=== PATIENT | female | born 1950 | race African-American/Black ===

== ENCOUNTER 2017-08-01 14:49 | Inpatient (IN) | payer MEDICARE, MEDICAID ==
[2017-08-01 15:38] LABS: #Lymphocytes 2.2 thou/uL (1.20-3.40); #Monocytes 0.2 thou/uL (0.11-0.59); #Neutrophils 7.3 thou/uL (1.40-6.50); %Basophils 0.2 % (0.0-1.0); %Eosinophils 0.4 % (0.0-10.0); %Lymphocytes 22.4 % (21.0-51.0); %Monocytes 2.3 % (0.0-10.0); %Neutrophils 74.7 % (42.0-75.0); Hemoglobin 11.4 g/dL (12.0-16.0); Mean Corpuscular HGB CONC 31.8 g/dL (32.0-36.0); Mean Corpuscular Volume 94.4 fl (81.0-99.0); Mean Platelet Volume 8.8 fL (7.4-10.4); Platelet Count 238 thou/uL (130-400); Red Blood Cell (RBC) Count 3.81 mill/uL (4.20-5.40); White Blood Cell (WBC) Count 9.7 thou/uL (4.8-10.8)
--- NOTE | 2017-08-01 15:49 | RAD ---
AP VIEW CHEST: Date: 08/01/17 INDICATION: Chest pain. COMPARISON: None. FINDINGS: There is cardiomegaly, pulmonary vascular congestion, and bilateral infrahilar air space opacities. T here are small bilateral pleural effusions. There is suspected healed deformity involving the proxima l right humerus. There is calcific tendinosis involving the left humeral head. IMPRESSION: 1. Findings suggesting moderate CHF. 2. Bibasilar opacities suspicious for edema; however, aspiration pneumonia can have a similar appear ance. Recommend correlation with clinical examination. POS: PATRICIA
[2017-08-01 15:56] LABS: ALT (SGPT) 17 U/L (8-55); AST (SGOT) 20 U/L (5-34); Albumin 4.4 g/dL (3.4-4.8); Alkaline Phosphatase 112 U/L (40-150); Anion Gap 17 mmol/L (10-20); BUN (Urea Nitrogen) 17 mg/dL (9.8-20.1); Bilirubin, Total 0.4 mg/dL (0.2-1.2); CK (CPK) 94 U/L (29-168); Calc. Creatinine Clearance 0 mL/min (70-130); Carbon Dioxide 19 mmol/L (23-31); Chloride 106 mmol/L (98-107); Estimated GFR-MDRD 53; Globulin 3.3 g/dL (2.4-3.5); Glucose 297 mg/dL (80-115); Potassium 4.6 mmol/L (3.5-5.1); Protein, Total 7.7 g/dL (6.0-8.3); Sodium 137 mmol/L (136-145)
[2017-08-01 16:00] LABS: CKMB 1.2 ng/mL (0-6.6); Troponin I 0.028 ng/mL (< 0.028)
[2017-08-01 16:03] LABS: PTT 31.3 SEC (22.9-36.1); Prothrombin Time 13.4 SEC (12.0-14.7)
[2017-08-01 16:04] LABS: D-Dimer Test 0.33 *mcg/mL (0.27-0.43)
[2017-08-01] MEDS ORDERED: Nitroglycerin 2% Ointment 1 INCH/1 GM Packet ONE (16:25)
[2017-08-01] MEDS ORDERED: Morphine 4 MG/ML VIAL ONE ×2 (16:25→19:28)
[2017-08-01] MEDS ORDERED: cefTRIAXone\\ROCEPHIN 1 GM VIAL ONE (17:47)
[2017-08-01] MEDS ORDERED: Mag-Al 1200 mg/1200 mg/30 ML UDCUP ONE (17:48)
[2017-08-01] MEDS ORDERED: Lidocaine Viscous Sol 2% 15 ml UD Cup ONE (17:48)
[2017-08-01] MEDS ORDERED: Azithromycin 250 MG TAB ONE (18:09)
[2017-08-01] MEDS ORDERED: Azithromycin 500 MG VIAL ONE (18:17)
[2017-08-01 19:35] LABS: Troponin I 2.539 ng/mL (< 0.028)
[2017-08-01] MEDS ORDERED: Enoxaparin Sodium 80 MG/0.8 ML SYRINGE ONE (19:43)
[2017-08-01] MEDS ORDERED: Ondansetron HCl/PF 4 MG/2 ML Vial IVP PRN (20:10)
[2017-08-01] MEDS ORDERED: Ondansetron ODT 4 MG TAB SL PRN (20:10)
[2017-08-01] MEDS ORDERED: Aspirin 325 MG TAB PO SCH (21:00)
[2017-08-01] MEDS ORDERED: Nitroglycerin 2% Ointment 1 INCH/1 GM Packet TOP SCH (22:00)
[2017-08-01 22:18] LABS: Lactic Acid 4.7 mmol/L (0.5-2.2)
[2017-08-01 22:30] LABS: Troponin I 3.255 ng/mL (< 0.028)
[2017-08-02] MEDS ORDERED: Clopidogrel Bisulfate 300 MG TAB PO SCH (02:02)
[2017-08-02] MEDS ORDERED: Acetaminophen 325 MG TAB PO PRN (02:02)
[2017-08-02] MEDS ORDERED: Dextrose 5% in Water 1,000 ML IV PRN (02:02)
[2017-08-02] MEDS ORDERED: Dextrose 50% Abboject 50 ML SYRINGE SLOW IVP PRN (02:02)
[2017-08-02] MEDS ORDERED: tiZANidine HCl 4 MG TAB PO PRN (02:02)
[2017-08-02] MEDS ORDERED: HumaLOG 300 UNITS/3 ML VIAL SC PRN ×2 (02:02)
[2017-08-02] MEDS ORDERED: traMADol HCl 50 MG TAB PO PRN ×2 (02:02→12:50)
[2017-08-02] MEDS ORDERED: Guaifenesin DM 100-10/5 ML UDCUP PO PRN (02:02)
[2017-08-02] MEDS ORDERED: Morphine 4 MG/ML VIAL SLOW IVP PRN (02:02)
[2017-08-02] MEDS ORDERED: Enoxaparin Sodium 80 MG/0.8 ML SYRINGE SC SCH ×2 (02:30→21:00)
[2017-08-02 05:32] LABS: #Lymphocytes 1.6 thou/uL (1.20-3.40); #Monocytes 0.5 thou/uL (0.11-0.59); %Basophils 0.1 % (0.0-1.0); %Eosinophils 0.5 % (0.0-10.0); %Lymphocytes 16.1 % (21.0-51.0); %Monocytes 5.2 % (0.0-10.0); %Neutrophils 78.2 % (42.0-75.0); Hemoglobin 10.7 g/dL (12.0-16.0); Mean Corpuscular HGB CONC 31.4 g/dL (32.0-36.0); Mean Corpuscular Hemoglobin 29.3 pg (27.0-31.0); Mean Corpuscular Volume 93.5 fl (81.0-99.0); Mean Platelet Volume 8.9 fL (7.4-10.4); Platelet Count 231 thou/uL (130-400); Red Blood Cell (RBC) Count 3.65 mill/uL (4.20-5.40); White Blood Cell (WBC) Count 10.2 thou/uL (4.8-10.8)
[2017-08-02 05:41] LABS: Anion Gap 18 mmol/L (10-20); BUN (Urea Nitrogen) 16 mg/dL (9.8-20.1); Calc. Creatinine Clearance 74 mL/min (70-130); Calcium 10.2 mg/dL (7.8-10.44); Carbon Dioxide 20 mmol/L (23-31); Cardiac Risk 2.4 (Less than 4.5); Chloride 106 mmol/L (98-107); Cholesterol 145 mg/dl (< 200 Desired); Estimated GFR-MDRD 66; Glucose 206 mg/dL (80-115); HDL Cholesterol 61 mg/dL (>60 Neg Risk); LDL Cholesterol, Calculated 55 mg/dL; Potassium 4.6 mmol/L (3.5-5.1); Sodium 139 mmol/L (136-145); Triglycerides 144 mg/dL (Less than 150)
--- NOTE | 2017-08-02 06:48 | HP ---
REASON FOR ADMISSION: Non-STEMI, CHF exacerbation, pneumonia. HISTORY OF PRESENT ILLNESS: The patient gives history of going to her [employer] this morning for shots for her right hip. She went home and ate and suddenly felt retrosternal chest pain which was 10/10 in intensity. She has had severe shortness of breath on minimal exertion. Her retrosternal chest pain was getting worse with coughing and sneezing. There was no radiation of this pain. She also mentions that she has had lower extremity edema which has been progressively getting worse from last two weeks. She normally gets swelling in her right lower extremity with upright position. She normally ambulates with a rolling walker and goes to her mailbox and back on a good day. There is no prior cardiac workup per patient, including stress test. PAST MEDICAL/SURGICAL HISTORY: Diabetes mellitus type 2, hypertension, gout, dyslipidemia, back surgery, cataract surgery, hysterectomy. The patient thinks that she might have obstructive sleep apnea and is waiting for a referral to go get a sleep study from Dr. Servin's office. ALLERGIES: No known drug allergies. CURRENT MEDICATIONS: Allopurinol 100 mg p.o. daily, metformin 500 mg 3 times daily, potassium chloride 20 p.o. daily, Lyrica 100 mg p.o. twice daily, pioglitazone 30 mg daily, Januvia 50 mg daily, lisinopril 40 mg daily, tizanidine 4 mg daily, simvastatin 20 mg p.o. daily, Norvasc 10 mg daily, omeprazole 40 mg daily. PERSONAL HISTORY: Does not abuse alcohol or drugs, smokes 3 cigarettes a day. She stays alone, has 1 daughter, who is also her power of marketing campaign analyst, Ms. Reji Mims. FAMILY HISTORY: Mother is living and has history of coronary artery disease and diabetes. She does not know much about her father. REVIEW OF SYSTEMS: The following complete review of systems was negative, unless otherwise mentioned in the HPI or below: Constitutional: Weight loss or gain, ability to conduct usual activities. Skin: Rash, itching. Eyes: Double vision, pain. ENT/Mouth: Nose bleeding, neck stiffness, pain, tenderness. Cardiovascular: Palpitations, dyspnea on exertion, orthopnea. Respiratory: Shortness of breath, wheezing, cough, hemoptysis, fever or night sweats. Gastrointestinal: Poor appetite, abdominal pain, heartburn, nausea, vomiting, constipation, or diarrhea. Genitourinary: Urgency, frequency, dysuria, nocturia. Musculoskeletal: Pain, swelling. Neurologic/Psychiatric: Anxiety, depression. Allergy/Immunologic: Skin rash, bleeding tendency. PHYSICAL EXAMINATION: GENERAL: The patient is a 66-year-old female who is in mild to moderate respiratory distress. VITAL SIGNS: Blood pressure 144/86, pulse 120 per minute, respiratory rate 26 per minute, temperature 97.6 degrees Fahrenheit, saturating 91% on room air. NECK: Supple, there is elevated JVD. HEENT: Eyes; extraocular muscles intact. Pupils reacting to light. Oral cavity; mucous membranes are dry. No exudates or congestion. CARDIOVASCULAR: S1, S2 heard. Regular rhythm. RESPIRATORY: Air entry 1+ bilateral. There are rales plus in the intra and infrascapular areas. ABDOMEN: Soft, bowel sounds heard. No tenderness, rigidity or guarding. EXTREMITIES: There is 2+ peripheral edema, no calf tenderness. VASCULAR: Peripheral pulses are 2+ in the upper extremities, lower extremities they are barely palpable at present, especially the dorsalis pedis and posterior tibial at present. PSYCHIATRIC SYSTEM: The patient's mood is euthymic. No hallucinations or delusions. CENTRAL NERVOUS SYSTEM: No gross focal deficits seen. Patient is alert, awake , oriented well. LABORATORY AND X-RAY FINDINGS: White count of 9, H&H 11 and 35, platelet count 238 with 74% neutrophils. PT, INR, PTT within normal limits. Electrolytes stable. Serum bicarbonate 19, BUN 17, creatinine 1.24, glucose 297. Lactic acid is 5.0, calcium is 10. Liver enzymes within normal limits. Troponin I first set was negative. The second is 2.53. Third set is 3.25, CK-MB 1.2, albumin is 4.4, lipase is 35. Chest x-ray done shows pulmonary vascular congestion. EKG done shows sinus tachycardia at 116 beats per minute. There is ST depression seen in V3-V6. Also, there is global ST depression seen on initial EKG. Repeat EKG done shows clearing up of the ST-T wave changes. CLINICAL IMPRESSION AND PLAN: The patient will be admitted to telemetry for new onset congestive heart failure exacerbation, non-ST elevation myocardial infarction, possible pneumonia. We will place her on 40 mg Lasix q.12h. Echo with 2D Doppler for LV function. Continue her on aspirin full dose, Plavix 300 mg 1 dose and 75 mg daily for non-ST elevation [place] and Lovenox 80 mg q.12 hours. We will consult Dr. Stuart who is synchronizer for Cardiology. We will place her on a small dose of Cozaar, Coreg, Lipitor. She will be on nitro paste half inch q.8 hourly as well. We will continue her on Actos and linagliptin for now. Metformin will be held. For her chronic pain we will continue her on Lyrica, tizanidine, Ultram, morphine p.r.n. We will also obtain arterial Doppler of lower extremities to rule out peripheral vascular disease. The patient has very long nails and has multiple wounds all over her body, which she says is due to psoriasis. She also likely has underlying obstructive sleep apnea. The patient's BMI is around 34 at present. We will continue to closely monitor her on telemetry. Her [employer] name is Dr. Navarro whom she sees every 3 months or so. Please note I have seen and examined patient on 08/01/2017. CODE STATUS: Full. Power of marketing campaign analyst is her daughter, her name Ms. Michelle Mims. We will continue to closely monitor her on telemetry. MEGHANN
[2017-08-02] MEDS ORDERED: Temazepam 15 MG CAP PO PRN (07:59)
[2017-08-02] MEDS ORDERED: Loratadine 10 MG TAB PO PRN (07:59)
[2017-08-02] MEDS ORDERED: Eucerin (Mineral Oil/Petrolatum,White) 30 gm Jar TOP PRN (07:59)
[2017-08-02] MEDS ORDERED: Chloraseptic Spray 180 ml Bottle PO PRN (07:59)
[2017-08-02] MEDS ORDERED: Sodium Chloride 0.65% Nasal 44 ML BOT EA NARE PRN (07:59)
[2017-08-02] MEDS ORDERED: Ondansetron HCl/PF 4 MG/2 ML Vial IVP PRN (07:59)
[2017-08-02] MEDS ORDERED: Loperamide HCl 2 MG CAP PO PRN (07:59)
[2017-08-02] MEDS ORDERED: Artificial Tears 18 DROP/0.9 ML EA EYE PRN (07:59)
[2017-08-02] MEDS ORDERED: Milk Of Magnesia 30 ML UDCUP PO PRN (07:59)
[2017-08-02] MEDS ORDERED: Mag-Al 1200 mg/1200 mg/30 ML UDCUP PO PRN (07:59)
[2017-08-02] MEDS ORDERED: Ondansetron ODT 4 MG TAB PO PRN (07:59)
[2017-08-02] MEDS ORDERED: Diabetic Tussin 200 MG/10 ML UDCUP PO PRN (07:59)
[2017-08-02] MEDS ORDERED: hydrALAZINE 20 MG/ML VIAL SLOW IVP PRN (07:59)
[2017-08-02] MEDS: Nitroglycerin 0.4 MG TAB (25 Tab Bottle) SL PRN ×2 (08:44→09:39)
[2017-08-02] MEDS: Potassium Chloride 20 MEQ TAB PO SCH (08:46)
[2017-08-02] MEDS: Pioglitazone HCl 15 MG TAB PO SCH (08:46)
[2017-08-02] MEDS: Alogliptin 25 MG TAB PO SCH (08:46)
[2017-08-02] MEDS: Docusate 100 MG CAP PO SCH ×2 (08:47→20:49)
[2017-08-02] MEDS ORDERED: Furosemide 40 MG TAB PO SCH (09:00)
[2017-08-02] MEDS ORDERED: Losartan 25 MG TAB PO SCH (09:00)
[2017-08-02] MEDS ORDERED: Famotidine 20 MG TAB PO SCH (09:00)
[2017-08-02] MEDS ORDERED: Clopidogrel Bisulfate 75 MG TAB PO SCH (09:00)
[2017-08-02] MEDS ORDERED: Carvedilol 3.125 MG TAB PO SCH (09:00)
--- NOTE | 2017-08-02 10:18 | ULT ---
ULTRASOUND DOPPLER DUPLEX ARTERIAL BILATERAL LOWER EXTREMITIES: DATE: 08/02/17. HISTORY: Peripheral artery disease in a 66-year-old female. TECHNIQUE: Samuel scale, color flow, and spectral analysis, of major arteries of bilateral lower extremities. FINDINGS: Because of body habitus, Doppler signal is weak in some of the arteries, especially in the distal low er extremities. Pulsed Doppler waveforms, followed by peak systolic velocities in cm/s: RIGHT: Common femoral: 115, triphasic. Profunda femoral: 180, triphasic. Superficial femoral, proximal: 185, biphasic. Superficial femoral, mid: 85, triphasic. Superficial femoral, distal: 65, biphasic. Popliteal: 70, biphasic. Posterior tibial: 10, monophasic. Anterior tibial: 30, biphasic. Dorsalis pedis: 25, monophasic. LEFT: Common femoral: 175, triphasic. Superficial femoral, proximal: 160, monophasic. Superficial femoral, mid: 175, monophasic. Superficial femoral, distal: 70, monophasic. Popliteal: 100, monophasic. Posterior tibial: 65, monophasic. Anterior tibial: 25, monophasic. Dorsalis pedis: not detected. IMPRESSION: Bilateral arterial occlusive disease, at least moderate on the right and severe on the left. POS: TPC
[2017-08-02] MEDS ORDERED: Heparin 10,000 UNITS/1 ML VIAL ONE (10:43)
[2017-08-02] MEDS ORDERED: Lidocaine 1% (PF) 30 ML VIAL ONE ×3 (10:44→11:49)
[2017-08-02] MEDS ORDERED: Sodium Chloride 0.9% 1,000 ML IV SCH ×2 (10:45→12:52)
[2017-08-02] MEDS ORDERED: Communication Order-Pharmacy FS SCH ×2 (10:45→14:13)
[2017-08-02] MEDS ORDERED: Midazolam HCl 2 mg/2 ml Vial ONE (11:20)
[2017-08-02] MEDS ORDERED: Iopamidol 370 76% 50 ML VIAL FS ONE (11:25)
[2017-08-02] MEDS ORDERED: Iopamidol 370 76% 100 ML VIAL ONE (11:25)
[2017-08-02] MEDS ORDERED: Fentanyl 100 MCG/2 ML VIAL ONE (11:28)
--- NOTE | 2017-08-02 12:02 | PDOC.PN ---
- Subjective Encounter Start Date: 08/02/17 Encounter Start Time: 07:30 -: old records requested/rev Patient seen and examined for nstemi. No new complaints. No overnight events, feels better - Objective Resuscitation Status: Resuscitation Status FULL:Full Resuscitation MAR Reviewed: Yes Vital Signs & Weight: Vital Signs (12 hours) Temp Pulse Resp BP Pulse Ox 08/02/17 04:04 97.9 F 97 20 134/61 100 08/02/17 02:33 97 Weight Weight 188 lb I&O: 08/01/17 08/02/17 08/03/17 06:59 06:59 06:59 Intake Total 360 Output Total 1100 500 Balance -740 -500 Result Diagrams: 08/02/17 04:37 08/02/17 04:37 Additional Labs: Accuchecks 08/02/17 10:54 POC Glucose 136 H EKG Reviewed by me: Yes (nsr) Phys Exam - Physical Examination Constitutional: NAD HEENT: PERRLA, moist MMs, sclera anicteric Neck: no JVD, supple Respiratory: no wheezing, no rales, no rhonchi Cardiovascular: RRR, no significant murmur, no rub Gastrointestinal: soft, non-tender, no distention, positive bowel sounds Musculoskeletal: no edema, pulses present Neurological: non-focal, normal sensation, moves all 4 limbs Psychiatric: normal affect, A&O x 3 Skin: no rash, normal turgor Dx/Plan (1) NSTEMI (non-ST elevated myocardial infarction) Code(s): I21.4 - NON-ST ELEVATION (NSTEMI) MYOCARDIAL INFARCTION Status: Acute (2) Acute CHF Code(s): I50.9 - HEART FAILURE, UNSPECIFIED Status: Acute Qualifiers: Heart failure type: unspecified Qualified Code(s): I50.9 - Heart failure, unspecified Comment: suspecting systolic (3) Diabetes type 2, controlled Code(s): E11.9 - TYPE 2 DIABETES MELLITUS WITHOUT COMPLICATIONS Status: Chronic (4) Dyslipidemia Code(s): E78.5 - HYPERLIPIDEMIA, UNSPECIFIED Status: Chronic (5) GERD (gastroesophageal reflux disease) Code(s): K21.9 - GASTRO-ESOPHAGEAL REFLUX DISEASE WITHOUT ESOPHAGITIS Status: Chronic (6) Gout Code(s): M10.9 - GOUT, UNSPECIFIED Status: Chronic (7) Hypertension Code(s): I10 - ESSENTIAL (PRIMARY) HYPERTENSION Status: Chronic (8) Lactic acidosis Code(s): E87.2 - ACIDOSIS Status: Acute (9) Obesity (BMI 30.0-34.9) Code(s): E66.9 - OBESITY, UNSPECIFIED Status: Chronic (10) PAD (peripheral artery disease) Code(s): I73.9 - PERIPHERAL VASCULAR DISEASE, UNSPECIFIED Status: Chronic - Plan cont current plan of care, continue antibiotics * continue aspirin, plavix, lovenox, lasix, statin as prescribed below * cardiology saw and plan for cardiac cath later today * echo pending * selected home medication reconciled * medication reviewed as below * symptomatic treatment * monitor labs. * continue empiric levaquin for suspected pneumonia Review of Systems - Review of Systems Eyes: negative: Pain, Vision Change, Conjunctivae Inflammation, Eyelid Inflammation, Redness, Other ENT: negative: Ear Pain, Ear Discharge, Nose Pain, Nose Discharge, Nose Congestion, Mouth Pain, Mouth Swelling, Throat Pain, Throat Swelling, Other Respiratory: negative: Cough, Dry, Shortness of Breath, Hemoptysis, SOB with Excertion, Pleuritic Pain, Sputum, Wheezing Cardiovascular: negative: chest pain, palpitations, orthopnea, paroxysmal nocturnal dyspnea, edema, light headedness, other Gastrointestinal: negative: Nausea, Vomiting, Abdominal Pain, Diarrhea, Constipation, Melena, Hematochezia, Other Genitourinary: negative: Dysuria, Frequency, Incontinence, Hematuria, Retention , Other Musculoskeletal: negative: Neck Pain, Shoulder Pain, Arm Pain, Back Pain, Hand Pain, Leg Pain, Foot Pain, Other Skin: negative: Rash, Lesions, Cade, Bruising, Other - Medications/Allergies Allergies/Adverse Reactions: Allergies Allergy/AdvReac Type Severity Reaction Status Date / Time No Known Allergies Allergy Unverified 08/01/17 20:09 Medications: Current Medications Acetaminophen (Tylenol) 650 mg PO Q4H PRN PRN Reason: Headache/Fever or Pain Al Hydroxide/Mg Hydroxide (Maalox) 15 ml PO Q4H PRN PRN Reason: Heartburn or Indigestion Allopurinol (Zyloprim) 200 mg PO [facility] Alogliptin Benzoate (Alogliptin) 12.5 mg PO DAILY [facility] Last Admin: 08/02/17 08:46 Dose: 12.5 mg Artificial Tears (Tears Naturale) 0 drop EA EYE PRN PRN PRN Reason: Dry Eyes Aspirin (Aspirin Chewable) 81 mg PO DAILY [facility] Last Admin: 08/02/17 08:47 Dose: 81 mg Atorvastatin Calcium (Lipitor) 40 mg PO QPM [facility] Carvedilol (Coreg) 3.125 mg PO BID [facility] Last Admin: 08/02/17 08:47 Dose: 3.125 mg Clopidogrel Bisulfate (Plavix) 75 mg PO DAILY [facility] Last Admin: 08/02/17 08:46 Dose: 75 mg Dextrose/Water (Dextrose 50%) 25 gm SLOW IVP PRN PRN PRN Reason: Hypoglycemia Docusate Sodium (Colace) 100 mg PO BID [facility] Last Admin: 08/02/17 08:47 Dose: Not Given Famotidine (Pepcid) 20 mg PO DAILY [facility] Last Admin: 08/02/17 08:45 Dose: 20 mg Furosemide (Lasix) 40 mg PO 0900,1400 [facility] Last Admin: 08/02/17 08:46 Dose: 40 mg Glucagon (Glucagon) 1 mg IM PRN PRN PRN Reason: Hypoglycemia Guaifenesin (Robitussin Sf) 200 mg PO Q4H PRN PRN Reason: Cough Guaifenesin/Dextromethorphan (Robitussin Dm) 15 ml PO Q4H PRN PRN Reason: Cough Hydralazine HCl (Apresoline) 10 mg SLOW IVP Q4H PRN PRN Reason: Systolic BP > 180 Dextrose/Water (D5w) 1,000 mls @ 0 mls/hr IV .Q0M PRN; As Directed PRN Reason: Hypoglycemia Levofloxacin 500 mg/ Device 100 mls @ 100 mls/hr IVPB Q24HR [facility] Sodium Chloride (Normal Saline 0.9%) 1,000 mls @ 50 mls/hr IV .Q20H [facility] Insulin Human Lispro (Humalog) 0 units SC .MODERATE SLIDING SC PRN PRN Reason: Moderate Correctional Scale Insulin Human Lispro (Humalog) 0 units SC .BEDTIME SLIDING SC PRN PRN Reason: Bedtime Correctional Scale Loperamide HCl (Imodium) 2 mg PO PRN PRN PRN Reason: Diarrhea/Loose Stools Loratadine (Claritin) 10 mg PO DAILYPRN PRN PRN Reason: Sinus Symptoms Losartan Potassium (Cozaar) 12.5 mg PO DAILY [facility] Last Admin: 08/02/17 08:45 Dose: 12.5 mg Magnesium Hydroxide (Milk Of Magnesium) 30 ml PO DAILYPRN PRN PRN Reason: Constipation Mineral Oil/White Petrolatum (Eucerin Cream) 0 gm TOP BIDPRN PRN PRN Reason: Dry Skin Miscellaneous Information (Communication Order-Pharmacy) 0 each FS ONE [facility] Stop: 08/02/17 21:00 Morphine Sulfate (Morphine) 2 mg SLOW IVP Q5MIN PRN PRN Reason: Chest Pain Last Admin: 08/02/17 09:55 Dose: 2 mg Nitroglycerin (Nitrostat) 0.4 mg SL Q5MIN PRN PRN Reason: Chest Pain Last Admin: 08/02/17 09:39 Dose: 0.4 mg Ondansetron HCl (Zofran Odt) 4 mg PO Q6H PRN PRN Reason: Nausea/Vomiting Ondansetron HCl (Zofran) 4 mg IVP Q6H PRN PRN Reason: Nausea/Vomiting Phenol (Chloraseptic [place] 180 Ml Bot) 0 ml PO PRN PRN PRN Reason: Sore Throat Pioglitazone HCl (Actos) 30 mg PO DAILY [facility] Last Admin: 08/02/17 08:46 Dose: 30 mg Potassium Chloride (K-Dur) 20 meq PO QAM-WM [facility] Last Admin: 08/02/17 08:46 Dose: 20 meq Pregabalin (Lyrica) 200 mg PO HS [facility] Sodium Chloride (Sutter Nasal [place] 0.65%) 0 ml EA NARE QIDPRN PRN PRN Reason: Nasal Congestion Sodium Chloride (Flush - Normal Saline) 10 ml IVF Q12HR [facility] Last Admin: 08/02/17 08:47 Dose: 10 ml Sodium Chloride (Flush - Normal Saline) 10 ml IVF PRN PRN PRN Reason: Saline Flush Temazepam (Restoril) 15 mg PO HSPRN PRN PRN Reason: Insomnia Tizanidine HCl (Zanaflex) 4 mg PO HS PRN PRN Reason: Muscle Spasm Tramadol HCl (Ultram) 50 mg PO Q6H PRN PRN Reason: Pain 4-6
--- NOTE | 2017-08-02 12:32 | CON ---
DATE OF CONSULTATION: 08/02/2017 HISTORY: Mariana Olmedo is a 66-year-old black female who complains of chest discomfort over the last 6 weeks. Most of these episodes would awaken her at night. She describes it as a chest pressure associated with shortness of breath and diaphoresis, no nausea or vomiting. The episodes would last approximately 30-40 minutes. She would get up out of bed and sit in a chair. She states that she has had episodes on a daily basis. She also would develop the same type of discomfort if she would go to the grocery store. While walking she would develop the same type of discomfort; however, it would only last 5-10 minutes and it also would be associated with shortness of breath and diaphoresis. Also, over the past 2 weeks she has noted increased leg edema which she has never had in the past. Yesterday she went to have a back injection which she states she has continued to have after a back surgery 2 years ago. When she got home, she continued to have onset of the same discomfort that did not resolve. She called EMS and was brought to the hospital. She was given 3 sprays of sublingual nitroglycerin by paramedics. On arrival in the emergency room, she was given morphine 4 mg IV, 1 inch of nitro paste, GI cocktail. After x-ray showed bilateral infiltrates which probably are related to pulmonary edema, she was given ceftriaxone 2 grams IV, Zithromax 500 mg p.o. and azithromycin 500 mg IV. She received another 4 mg morphine, Lovenox 90 mg. Since she has been on the floor, she has been given Plavix 300 mg followed by 75 mg per day, Cozaar, carvedilol and topical nitrates. She has continued to have mild chest discomfort today. I was notified by the nurse of that. She states that at the present time, her pain is approximately 5/10 level. She has been given sublingual nitroglycerin as well as morphine and continues to have the discomfort. PAST MEDICAL HISTORY: Hypertension, hyperlipidemia, diabetes, gout, possible obstructive sleep apnea for a sleep study in the future. OPERATIONS: Back surgery, bilateral cataract surgery, total abdominal hysterectomy. MEDICATIONS: Allopurinol 100 mg daily, metformin 500 mg t.i.d., KCl 20 mEq daily, Lyrica 100 mg b.i.d.; pioglitazone 30 mg daily, Januvia 50 daily, lisinopril 40 mg daily, tizanidine 4 mg daily, simvastatin 20 at bedtime, Norvasc 10 mg daily, omeprazole 40 daily. ALLERGIES: None. SOCIAL HISTORY: She smokes 2-3 cigarettes per day. She does not drink alcohol. FAMILY HISTORY: Her mother is Najma Bang who has a pacemaker and also underwent bypass surgery 6-7 years ago. REVIEW OF SYSTEMS: Twelve point review of systems otherwise unremarkable. PHYSICAL EXAMINATION: VITAL SIGNS: Blood pressure 134/61, pulse 97. HEENT: PERRL. NECK: Supple. LUNGS: Chest reveals very faint rales at the bases. CARDIAC: S1, S2 normal, without any S3, S4 or murmurs. Carotid upstrokes normal, without bruits. ABDOMEN: Normal bowel sounds, without tenderness, organomegaly. EXTREMITIES: Revealed no clubbing or cyanosis. There is 1+ pretibial edema to the mid tibia. NEUROLOGIC: Grossly intact. SKIN: Warm and dry. LABORATORY DATA: EKG revealed normal sinus rhythm with downsloping ST segments in 1 and L, V4 through V6. Those changes on EKG this morning are dramatically improved even though she continues to have mild chest discomfort. Hemoglobin 10.7, hematocrit 34.1, white count 10,200, platelets 231,000. INR 1.0. Sodium 139, potassium 4.6, chloride 106, carbon dioxide 20, BUN 16, creatinine 1.02. Lactic acid 5.0. Troponin I is up to 3.255. BNP 22.2. Cholesterol 145 , triglycerides 144, HDL 61, LDL 55. IMPRESSION: 1. [id number] elevation myocardial infarction. She had a lateral ST segment depression on EKG which today is improved. She continues to have ongoing discomfort at this time. 2. Probable heart failure with increased peripheral edema. 3. Acute coronary syndrome with new onset angina over the last 6 weeks. 4. Hypertension. 5. Diabetes. 6. Hypercholesterolemia, under good control. 7. Positive family history. 8. Smoker. PLAN: Echocardiogram needs to be performed to assess left ventricular function. However, with her continued ongoing chest discomfort. I feel the best option is to go the lab engineer directly. Risks of catheterization were discussed with the patient including , myocardial infarction, dye reaction , vascular injury, CVA, transfusion, limb loss, renal loss, etc. Risk of stent placement were discussed including , myocardial infarction, emergent CABG, restenosis, stent thrombosis, vessel perforation, etc. She gets back injections very regularly and because of this, a bare metal stent will be placed if needed. She understands and agrees to proceed. MEGHANN
[2017-08-02] MEDS ORDERED: Nitroglycerin 50 MG/250 ML BOT 250 ML ONE (12:39)
[2017-08-02] MEDS ORDERED: Acetaminophen/Codeine 30-300mg Tablet PO PRN ×2 (12:50)
[2017-08-02] MEDS ORDERED: Nitroglycerin 0.4 MG TAB (25 Tab Bottle) SL PRN (12:50)
[2017-08-02] MEDS ORDERED: Sodium Chloride 0.9% 200 ML IV SCH (13:00)
[2017-08-02] MEDS ORDERED: Nitroglycerin 100MG/250ML BOT IV PRN ×2 (14:05→15:45)
[2017-08-02] MEDS ORDERED: Nitroglycerin 50 MG/250 ML BOT IVPB PRN (16:00)
--- NOTE | 2017-08-02 17:22 | CON ---
DATE OF CONSULTATION: 08/02/2017 REQUESTING PHYSICIAN: Dr. Stuart. PRIMARY CARE PHYSICIAN: Mike Servin M.D. CHIEF COMPLAINT: Chest pain or pressure. HISTORY OF PRESENT ILLNESS: The patient is a 66-year-old black woman with hypertension, diabetes. F or 2-3 months, she has been having what she thought was simply heartburn with the pressure type disco mfort in the central portion of her chest. It has been becoming somewhat more frequent of late, but yesterday after eating lunch, she had an episode that was far more severe than is typical. She cedillo d some neighbors who had helped her run some errands earlier in the day and when they came over to [facility] on her, apparently she looked bad enough that they just simply called EMS and when EMS arrived, elena perez decided to take her to the nearest hospital at [place] rather than to [facility] where susy receives her primary care. On arrival, her EKG showed ST depression in leads I, II, possibly aVL a nd the precordial leads V3 through V6. Initially, her troponins were negative, but about 5-6 hours l ater at the next blood draw, they turned positive. A cardiac catheterization today shows a left alba nant system with three-vessel coronary disease including hazy plaque in the distal left main that ext ends into the ostium of the LAD. PAST MEDICAL HISTORY: Significant for hypertension, diabetes, hyperlipidemia, lumbar disk disease wi th radiculopathy, obstructive sleep apnea, and history of albuminuria and gout. HOME MEDICATIONS: Lisinopril 40 mg a day, Norvasc 10 mg a day, pioglitazone (Actos) 30 mg a day, sit agliptin (Januvia) 50 mg a day, metformin 1000 mg in the morning and 500 mg in the evening, allopurin ol 300 mg in the morning and 200 mg in the evening, Lyrica 100 mg in the morning and 200 mg in the ev ening, Prilosec 40 mg a day, potassium 20 mEq a day, tizanidine 4 mg at bedtime p.r.n. According to her [facility] medicine list is also listed as having Kenalog topical ointments, Zocor 20 mg at bedtime, Indocin 50 mg b.i.d. p.r.n. for gout flare ups and a Diprolene 0.05% cream b.i.d. to hands, feet, and back. SOCIAL HISTORY: She admits to smoking about a pack of cigarettes a week. Denies alcohol consumption . FAMILY HISTORY: Significant for her mother who has undergone coronary bypass surgery. REVIEW OF SYSTEMS: Negative for any transient eye, speech, facial or extremity symptoms to suggest T IAs. She admits to some shortness of breath, but denies chronic cough. She has chronic low back gera n. PHYSICAL EXAMINATION: GENERAL: She is a somewhat obese, graying black, lady in no distress. VITAL SIGNS: Sinus rhythm in the 90s, blood pressure 134/61, temperature 97.9, 2 liters nasal cannul a, O2 sat is 97%. HEENT: She has no obvious xanthelasma. NECK: No JVD, no carotid bruits. LUNGS: Clear to auscultation. CARDIOVASCULAR: She has a regular rate and rhythm. ABDOMEN: Obese, soft, and nontender. EXTREMITIES: Palpable radial pulses and dorsalis pedis pulses bilaterally. Her right dorsalis pedis pulse is 1-2+, her left dorsalis pedis pulse is at best 1+. She has no clubbing, cyanosis or edema. NEUROLOGIC: Grossly nonfocal. LABORATORY DATA: White count was 9.7, hemoglobin 11.4, hematocrit 35.9, platelets 238,000. Sodium i s 137, potassium 4.6, chloride 106, CO2 of 19, glucose 297, BUN 17, creatinine 1.24. Overnight, her BUN was 16 and creatinine 1.02. At her [facility] checkup in May, her creatinine was 1.02, a year ago it was 0.83. On admission, her bilirubin 0.4, alkaline phosphatase 112, AST 20, ALT 17, pro tein 7.7, albumin 4.4, calcium is 10.0. Her troponin initially was 0.028, roughly 5-1/2-6 hours late r is 2.539 and about 3 hours after that it was 3.255. Her BNP was 22. Her EKG had ST depressions. Her chest x-ray, perhaps was wet, it was particularly hazy at the right lower lung field and had aort ic knob calcifications. Her cardiac catheterization shows a left dominant system with an LAD that wr aps well around the apex. She has a fairly high grade ostial lesion that is an extension of some haz y plaque in the distal left main with a rather large, but stenotic first septal cloth cutter. She has about a 50% mid LAD lesion with a small to modest size diagonal that comes off a little after that vance s an ostial 70-80% lesion in it. The circumflex proper has serial lesions in it with a very small di stal arborization and bifurcated OM1 being isolated from each other. LVEF is around 60% with aortic pressure 130/51 with a mean of 86 and LV pressure 133 to 35/-4 to -5 with EDP of 5, 2, and 5. IMPRESSION AND RECOMMENDATIONS: Significant coronary disease in a diabetic who has demonstrated the pattern of unstable angina culminating in a non-ST elevation [place] yesterday. She is currently stable. She received 300 mg of Plavix about 3:00 this morning. She is going to be going to the Intensive Ca re Unit for IV nitroglycerin and monitoring. I want to recheck some labs in the morning to make sure that her renal function stays stable and to get a baseline hemoglobin A1c. I am also going to give her some Lasix and then repeat a chest x-ray.
--- NOTE | 2017-08-02 20:27 | EKG ---
Test Reason : Blood Pressure : / mmHG Vent. Rate : 080 BPM Atrial Rate : 080 BPM P-R Int : 160 ms QRS Dur : 088 ms QT Int : 354 ms P-R-T Axes : 038 055 116 degrees QTc Int : 408 ms Normal sinus rhythm Nonspecific ST and T wave abnormality Abnormal ECG When compared with ECG of 01-AUG-2017 15:02, (Unconfirmed) ST no longer depressed in Anterior leads Confirmed by ANNE MARIE ANGLIN (2) on 08/02/2017 8:26:26 PM Referred By: KENYA Confirmed By:ANNE MARIE ANGLIN
--- NOTE | 2017-08-02 20:27 | EKG ---
Test Reason : Blood Pressure : / mmHG Vent. Rate : 092 BPM Atrial Rate : 092 BPM P-R Int : 164 ms QRS Dur : 084 ms QT Int : 380 ms P-R-T Axes : 062 038 110 degrees QTc Int : 469 ms Sinus rhythm with Premature atrial complexes Nonspecific ST and T wave abnormality Abnormal ECG No previous ECGs available Confirmed by ANNE MARIE ANGLIN (2) on 08/02/2017 8:27:12 PM Referred By: DERREK Confirmed By:ANNE MARIE ANGLIN
[2017-08-02] MEDS: Allopurinol 100 MG TAB PO SCH (20:47)
[2017-08-02] MEDS: Pregabalin 50 MG CAP PO SCH (20:48)
[2017-08-02] MEDS: Atorvastatin Calcium 40 MG TAB PO SCH (20:48)
[2017-08-03] MEDS ORDERED: Levofloxacin 250 mg/D5W 500 MG in Premix Bag 1 BAG IVPB SCH (02:30)
[2017-08-03 05:42] LABS: #Lymphocytes 2.7 thou/uL (1.20-3.40); #Monocytes 0.9 thou/uL (0.11-0.59); #Neutrophils 7.8 thou/uL (1.40-6.50); %Basophils 0.4 % (0.0-1.0); %Eosinophils 0.3 % (0.0-10.0); %Lymphocytes 23.1 % (21.0-51.0); %Monocytes 8.2 % (0.0-10.0); Hemoglobin 11.5 g/dL (12.0-16.0); Mean Corpuscular HGB CONC 30.7 g/dL (32.0-36.0); Mean Corpuscular Hemoglobin 28.9 pg (27.0-31.0); Mean Corpuscular Volume 94.1 fl (81.0-99.0); Mean Platelet Volume 8.4 fL (7.4-10.4); Platelet Count 234 thou/uL (130-400); RBC Distribution Width 15.3 % (11.5-14.5); Red Blood Cell (RBC) Count 3.98 mill/uL (4.20-5.40); White Blood Cell (WBC) Count 11.5 thou/uL (4.8-10.8)
[2017-08-03 05:46] LABS: Hemoglobin A1c 6.6 % (4.0-6.0); Lactic Acid 2.3 mmol/L (0.5-2.2)
[2017-08-03 05:48] LABS: Anion Gap 14 mmol/L (10-20); BUN (Urea Nitrogen) 14 mg/dL (9.8-20.1); Calc. Creatinine Clearance 77 mL/min (70-130); Calcium 10.1 mg/dL (7.8-10.44); Carbon Dioxide 25 mmol/L (23-31); Chloride 104 mmol/L (98-107); Estimated GFR-MDRD 69; Glucose 132 mg/dL (80-115); Potassium 4.1 mmol/L (3.5-5.1); Sodium 139 mmol/L (136-145)
[2017-08-03] MEDS: Furosemide 40 MG TAB PO SCH (08:06)
--- NOTE | 2017-08-03 09:04 | PQF ---
CLINICAL DOCUMENTATION IMPROVEMENT CLARIFICATION FORM: ICD-10 Updated PLEASE DO AN ADDENDUM TO THE PROGRESS NOTE WITH ANY DOCUMENTATION UPDATES OR ADDITIONS AND CARRY THROUGH TO DC SUMMARY. THANK YOU. DATE: 08/03 ATTN: DR. MARIA GUADALUPE FARAH Please exercise your independent, professional judgment in responding to the clarification form. Clinical indicators are provided on the bottom of this form for your review Please check appropriate box(s) to clarify if the following diagnosis has been ruled in or ruled out: POSSIBLE PNEUMONIA [ ] Ruled in diagnosis [ ] Continue to treat [ ] Resolved [ x ] Ruled out diagnosis [ ] Other diagnosis [ ] Unable to determine For continuity of documentation, please document condition throughout progress notes and discharge summary. Thank You. CLINICAL INDICATORS - SIGNS / SYMPTOMS / LABS PHYSICIAN H&P DOCUMENTATION 08/01: REASON FOR ADMISSION: NSTEMI, CHF EXACERBATION, PNEUMONIA. CLINICAL IMPRESSION & PLAN: THE PATIENT WILL BE ADMITTED FOR NEW ONSET CHF EXACERBATION, NSTEMI, & POSSIBLE PNEUMONIA CARDIOLOGY CONSULT 08/02: HX: ...AFTER X-RAY SHOWED BILATERAL INFILTRATES WHICH PROBABLY ARE R/T PULMONARY EDEMA... CXR 08/01: IMPRESSION: 2) BIBASILAR OPACITIES SUSPICIOUS FOR EDEMA; HOWEVER, ASPIRATION PNEUMONIA CAN HAVE A SIMILAR APPEARANCE NO FURTHER MENTION OF PNEUMONIA TO DATE RISK FACTORS: CURRENT TOBACCO ABUSE SOB TREATMENT: IV ANTIBIOTIC (LEVAQUIN 08/02 - PRESENT) THANK YOU! Anna (This form is maintained as a part of the permanent medical record) 2014 [employer]. All Rights Reserved Anna Rondon RN, BSN [email or web address] Office: [phone] [facility]
--- NOTE | 2017-08-03 09:23 | RAD ---
SINGLE VIEW OF THE CHEST: Comparison: 08-01-17 History: Open heart surgery pre-operative radiograph. FINDINGS: Single view of the chest shows a cardiomediastinal silhouette which is upper limits normal in size. T here is no evidence of consolidation, mass, or pleural effusion. There is a remote healed fracture of the right humerous. IMPRESSION: No evidence of acute cardiopulmonary disease. POS: [facility]
[2017-08-03] MEDS: Pioglitazone HCl 15 MG TAB PO SCH (09:47)
[2017-08-03] MEDS: Alogliptin 25 MG TAB PO SCH (09:48)
[2017-08-03] MEDS: Famotidine 20 MG TAB PO SCH ×2 (09:48→20:19)
[2017-08-03] MEDS: Potassium Chloride 20 MEQ TAB PO SCH (09:49)
[2017-08-03] MEDS: Docusate 100 MG CAP PO SCH ×2 (09:49→20:19)
--- NOTE | 2017-08-03 11:18 | PDOC.PN ---
- Subjective Encounter Start Date: 08/03/17 Encounter Start Time: 09:30 Patient seen and examined for nstemi. No new complaints. No overnight events - Objective Resuscitation Status: Resuscitation Status FULL:Full Resuscitation MAR Reviewed: Yes Vital Signs & Weight: Vital Signs (12 hours) Temp Pulse Ox 08/03/17 10:32 95 08/03/17 08:00 97.7 F 08/03/17 04:00 98.9 F Weight Weight 188 lb 4.396 oz Most Recent Monitor Data Heart Rate from ECG 82 NIBP 131/50 NIBP BP-Mean 69 Respiration from ECG 18 SpO2 100 I&O: 08/02/17 08/03/17 08/04/17 06:59 06:59 06:59 Intake Total 360 1671.5 0 Output Total 1100 2720 100 Balance -740 -1048.5 -100 Result Diagrams: 08/03/17 05:06 08/03/17 05:06 Additional Labs: Accuchecks 08/02/17 08/02/17 08/02/17 22:35 19:12 05:25 POC Glucose 159 H 114 H 163 H 08/01/17 20:27 POC Glucose 271 H Radiology Reviewed by me: Yes (chest xray) EKG Reviewed by me: Yes (nsr) Phys Exam - Physical Examination Constitutional: NAD HEENT: PERRLA, moist MMs, sclera anicteric Neck: no JVD, supple Respiratory: no wheezing, no rhonchi reduced air entry at base Cardiovascular: RRR, no significant murmur, no rub Gastrointestinal: soft, non-tender, no distention, positive bowel sounds Musculoskeletal: pulses present, edema present Neurological: non-focal, normal sensation, moves all 4 limbs Psychiatric: normal affect, A&O x 3 Skin: no rash, normal turgor Dx/Plan (1) NSTEMI (non-ST elevated myocardial infarction) Code(s): I21.4 - NON-ST ELEVATION (NSTEMI) MYOCARDIAL INFARCTION Status: Acute (2) Acute CHF Code(s): I50.9 - HEART FAILURE, UNSPECIFIED Status: Acute Qualifiers: Heart failure type: unspecified Qualified Code(s): I50.9 - Heart failure, unspecified Comment: suspecting systolic (3) Diabetes type 2, controlled Code(s): E11.9 - TYPE 2 DIABETES MELLITUS WITHOUT COMPLICATIONS Status: Chronic (4) Dyslipidemia Code(s): E78.5 - HYPERLIPIDEMIA, UNSPECIFIED Status: Chronic (5) GERD (gastroesophageal reflux disease) Code(s): K21.9 - GASTRO-ESOPHAGEAL REFLUX DISEASE WITHOUT ESOPHAGITIS Status: Chronic (6) Gout Code(s): M10.9 - GOUT, UNSPECIFIED Status: Chronic (7) Hypertension Code(s): I10 - ESSENTIAL (PRIMARY) HYPERTENSION Status: Chronic (8) Lactic acidosis Code(s): E87.2 - ACIDOSIS Status: Acute (9) Obesity (BMI 30.0-34.9) Code(s): E66.9 - OBESITY, UNSPECIFIED Status: Chronic (10) PAD (peripheral artery disease) Code(s): I73.9 - PERIPHERAL VASCULAR DISEASE, UNSPECIFIED Status: Chronic (11) Multiple vessel coronary artery disease Code(s): I25.10 - ATHSCL HEART DISEASE OF [place] CORONARY ARTERY W/O ANG PCTRS Status: Acute (12) Tobacco abuse Code(s): Z72.0 - TOBACCO USE Status: Chronic - Plan cont current plan of care * pt is planned for CABG tomorrow * currently on nitro drip * continue current treatment as below * symptomatic treatment * will closely monitor in ccu * counselled to avoid smoking. Review of Systems - Review of Systems Eyes: negative: Pain, Vision Change, Conjunctivae Inflammation, Eyelid Inflammation, Redness, Other ENT: negative: Ear Pain, Ear Discharge, Nose Pain, Nose Discharge, Nose Congestion, Mouth Pain, Mouth Swelling, Throat Pain, Throat Swelling, Other Respiratory: negative: Cough, Dry, Shortness of Breath, Hemoptysis, SOB with Excertion, Pleuritic Pain, Sputum, Wheezing Cardiovascular: negative: chest pain, palpitations, orthopnea, paroxysmal nocturnal dyspnea, edema, light headedness, other Gastrointestinal: negative: Nausea, Vomiting, Abdominal Pain, Diarrhea, Constipation, Melena, Hematochezia, Other Genitourinary: negative: Dysuria, Frequency, Incontinence, Hematuria, Retention , Other Musculoskeletal: negative: Neck Pain, Shoulder Pain, Arm Pain, Back Pain, Hand Pain, Leg Pain, Foot Pain, Other Skin: negative: Rash, Lesions, Cade, Bruising, Other - Medications/Allergies Allergies/Adverse Reactions: Allergies Allergy/AdvReac Type Severity Reaction Status Date / Time No Known Allergies Allergy Unverified 08/01/17 20:09 Medications: Current Medications Acetaminophen (Tylenol) 650 mg PO Q4H PRN PRN Reason: Headache/Fever or Pain Acetaminophen/Codeine Phosphate (Tylenol #3) 1 tab PO Q4H PRN PRN Reason: Mild Pain (1-3) Acetaminophen/Codeine Phosphate (Tylenol #3) 2 tab PO Q4H PRN PRN Reason: Moderate Pain (4-6) Al Hydroxide/Mg Hydroxide (Maalox) 15 ml PO Q4H PRN PRN Reason: Heartburn or Indigestion Allopurinol (Zyloprim) 200 mg PO HS [facility] Last Admin: 08/02/17 20:47 Dose: 200 mg Alogliptin Benzoate (Alogliptin) 12.5 mg PO DAILY [facility] Last Admin: 08/03/17 09:48 Dose: 12.5 mg Artificial Tears (Tears Naturale) 0 drop EA EYE PRN PRN PRN Reason: Dry Eyes Aspirin (Aspirin Chewable) 81 mg PO DAILY [facility] Last Admin: 08/03/17 09:49 Dose: 81 mg Atorvastatin Calcium (Lipitor) 40 mg PO QPM [facility] Last Admin: 08/02/17 20:48 Dose: 40 mg Dextrose/Water (Dextrose 50%) 25 gm SLOW IVP PRN PRN PRN Reason: Hypoglycemia Docusate Sodium (Colace) 100 mg PO BID [facility] Last Admin: 08/03/17 09:49 Dose: 100 mg Famotidine (Pepcid) 20 mg PO BID [facility] Last Admin: 08/03/17 09:48 Dose: 20 mg Furosemide (Lasix) 40 mg PO DAILY[facility] Last Admin: 08/03/17 08:06 Dose: 40 mg Glucagon (Glucagon) 1 mg IM PRN PRN PRN Reason: Hypoglycemia Guaifenesin (Robitussin Sf) 200 mg PO Q4H PRN PRN Reason: Cough Guaifenesin/Dextromethorphan (Robitussin Dm) 15 ml PO Q4H PRN PRN Reason: Cough Hydralazine HCl (Apresoline) 10 mg SLOW IVP Q4H PRN PRN Reason: Systolic BP > 180 Dextrose/Water (D5w) 1,000 mls @ 0 mls/hr IV .Q0M PRN; As Directed PRN Reason: Hypoglycemia Sodium Chloride (Normal Saline 0.9%) 200 mls @ 0 mls/hr IV ONE ELO PRN Reason: As Directed Stop: 08/03/17 21:00 Levofloxacin 500 mg/ Device 100 mls @ 100 mls/hr IVPB Q24HR [facility] Last Admin: 08/03/17 02:09 Dose: 100 mls Insulin Human Lispro (Humalog) 0 units SC .MODERATE SLIDING SC PRN PRN Reason: Moderate [place] Scale Insulin Human Lispro (Humalog) 0 units SC .BEDTIME SLIDING SC PRN PRN Reason: Bedtime [place] Scale Loperamide HCl (Imodium) 2 mg PO PRN PRN PRN Reason: Diarrhea/Loose Stools Loratadine (Claritin) 10 mg PO DAILYPRN PRN PRN Reason: Sinus Symptoms Magnesium Hydroxide (Milk Of Magnesium) 30 ml PO DAILYPRN PRN PRN Reason: Constipation Mineral Oil/White Petrolatum (Eucerin Cream) 0 gm TOP BIDPRN PRN PRN Reason: Dry Skin Miscellaneous Information (Communication Order-Pharmacy) 1 each FS ONE [facility] Stop: 08/03/17 15:00 Morphine Sulfate (Morphine) 2 mg SLOW IVP Q5MIN PRN PRN Reason: Chest Pain Last Admin: 08/02/17 09:55 Dose: 2 mg Nitroglycerin (Nitrostat) 0.4 mg SL Q5MIN PRN PRN Reason: Chest Pain Nitroglycerin/Dextrose (Nitroglycerin 50 Mg/250 Ml Bot) 0 ml IVPB INF PRN; Protocol PRN Reason: Angina Ondansetron HCl (Zofran Odt) 4 mg PO Q6H PRN PRN Reason: Nausea/Vomiting Ondansetron HCl (Zofran) 4 mg IVP Q6H PRN PRN Reason: Nausea/Vomiting Phenol (Chloraseptic [place] 180 Ml Bot) 0 ml PO PRN PRN PRN Reason: Sore Throat Pioglitazone HCl (Actos) 30 mg PO DAILY [facility] Last Admin: 08/03/17 09:47 Dose: 30 mg Potassium Chloride (K-Dur) 20 meq PO QAM[facility] Last Admin: 08/03/17 09:49 Dose: 20 meq Pregabalin (Lyrica) 200 mg PO HS [facility] Last Admin: 08/02/17 20:48 Dose: 200 mg Sodium Chloride ([place] Nasal [place] 0.65%) 0 ml EA NARE QIDPRN PRN PRN Reason: Nasal Congestion Sodium Chloride (Flush - Normal Saline) 10 ml IVF Q12HR E[facility] Last Admin: 08/03/17 09:49 Dose: 10 ml Sodium Chloride (Flush - Normal Saline) 10 ml IVF PRN PRN PRN Reason: Saline Flush Temazepam (Restoril) 15 mg PO HSPRN PRN PRN Reason: Insomnia Tizanidine HCl (Zanaflex) 4 mg PO HS PRN PRN Reason: Muscle Spasm Tramadol HCl (Ultram) 50 mg PO Q6H PRN PRN Reason: Moderate Pain (4-6)
[2017-08-03] MEDS: Pregabalin 50 MG CAP PO SCH (20:18)
[2017-08-03] MEDS: Allopurinol 100 MG TAB PO SCH (20:18)
[2017-08-03] MEDS: Atorvastatin Calcium 40 MG TAB PO SCH (20:19)
[2017-08-04] MEDS ORDERED: Heparin 10,000 UNITS/1 ML VIAL 30,000 UNITS in Sodium Chloride 0.9% 1,000 ML FS SCH (06:30)
[2017-08-04] MEDS ORDERED: Phenylephrine HCL 10 MG/ML VIAL ONE (06:38)
[2017-08-04] MEDS ORDERED: Midazolam HCl 5 mg/5 ml Vial ONE (06:38)
[2017-08-04] MEDS ORDERED: Fentanyl 250 MCG/5 ML VIAL ONE (06:38)
[2017-08-04] MEDS ORDERED: Dexmedetomidine 200 MCG/2 ML VIAL ONE (06:48)
[2017-08-04] MEDS ORDERED: Rocuronium Bromide 50 MG/5 ML VIAL ONE ×2 (06:59→11:36)
[2017-08-04] MEDS ORDERED: Mag-Al 1200 mg/1200 mg/30 ML UDCUP PO PRN (07:26)
[2017-08-04] MEDS ORDERED: hydrALAZINE 20 MG/ML VIAL SLOW IVP PRN (07:26)
[2017-08-04] MEDS ORDERED: Promethazine HCl 25 MG/ML VIAL IM PRN (07:26)
[2017-08-04] MEDS ORDERED: Hetastarch 6% 500 ML 500 ML IVPB PRN (07:26)
[2017-08-04] MEDS ORDERED: DOPamine 400 MG/D5W 250 ML 250 ML IVPB PRN (07:26)
[2017-08-04] MEDS ORDERED: Bisacodyl 10 MG SUPP PR PRN (07:26)
[2017-08-04] MEDS ORDERED: Bisacodyl 5 MG TAB PO PRN (07:26)
[2017-08-04] MEDS ORDERED: Nitroglycerin 50 MG/250 ML BOT 250 ML IVPB PRN (07:26)
[2017-08-04] MEDS ORDERED: Post-Op Insulin Drip Protocol IVPB ONE (07:26)
[2017-08-04] MEDS ORDERED: Acetaminophen 325 MG TAB PO PRN (07:26)
[2017-08-04] MEDS ORDERED: Norepinephrine 8 MG/0.9% NS 250 ML IVPB PRN (07:26)
[2017-08-04] MEDS ORDERED: Ondansetron HCl/PF 4 MG/2 ML Vial IVP PRN (07:26)
[2017-08-04] MEDS ORDERED: Guaifenesin DM 100-10/5 ML UDCUP PO PRN (07:26)
[2017-08-04] MEDS ORDERED: CEFAZOLIN 1 GM VIAL ONE ×2 (07:39→15:00)
[2017-08-04] MEDS ORDERED: Dextrose 5% in Water 1,000 ML IV PRN (08:03)
[2017-08-04] MEDS ORDERED: Dextrose 50% Abboject 50 ML SYRINGE SLOW IVP PRN (08:03)
[2017-08-04] MEDS ORDERED: Insulin Regular 300 UNITS/3 ML VIAL ONE (10:57)
[2017-08-04] MEDS ORDERED: Albumin 5% 500 ML ONE (11:00)
[2017-08-04] MEDS: Sodium Chloride 0.9% 1,000 ML IV SCH ×2 (11:59→14:39)
[2017-08-04] MEDS: Pregabalin 25 MG CAP PO SCH (12:00)
[2017-08-04] MEDS: Famotidine/PF 20 mg/2ml Vial SLOW IVP SCH ×2 (12:00→21:26)
[2017-08-04] MEDS: Aspirin 81 mg Enteric Coated Tablet PO SCH (12:00)
--- NOTE | 2017-08-04 12:28 | PDOC.PN ---
- Subjective Encounter Start Date: 08/04/17 Encounter Start Time: 07:00 Patient seen and examined for chf, nstemi. No new complaints. No overnight events - Objective Resuscitation Status: Resuscitation Status FULL:Full Resuscitation MAR Reviewed: Yes Vital Signs & Weight: Vital Signs (12 hours) Temp 08/04/17 07:00 98.2 F 08/04/17 04:00 98.4 F Weight Weight 190 lb 4.143 oz Most Recent Monitor Data Heart Rate from ECG 96 NIBP 113/54 NIBP BP-Mean 97 Respiration from ECG 20 SpO2 99 I&O: 08/03/17 08/04/17 08/05/17 06:59 06:59 06:59 Intake Total 1671.5 1494.6 Output Total 2720 3125 110 Balance -1048.5 -1630.4 -110 Result Diagrams: 08/05/17 04:17 08/05/17 04:17 Additional Labs: Accuchecks 08/04/17 08/04/17 08/04/17 12:10 11:53 11:23 POC Glucose 173 H 124 H 146 H 08/04/17 08/04/17 08/03/17 10:55 08:30 22:15 POC Glucose 151 H 129 H 142 H 08/03/17 08/03/17 17:07 12:27 POC Glucose 147 H 140 H EKG Reviewed by me: Yes (nsr) Phys Exam - Physical Examination Constitutional: NAD HEENT: PERRLA, moist MMs, sclera anicteric Neck: no JVD, supple Respiratory: no wheezing, no rales, no rhonchi Cardiovascular: RRR, no significant murmur, no rub Gastrointestinal: soft, non-tender, no distention, positive bowel sounds Musculoskeletal: no edema, pulses present Neurological: non-focal, normal sensation, moves all 4 limbs Lymphatic: no nodes Psychiatric: normal affect, A&O x 3 Skin: no rash, normal turgor Dx/Plan (1) NSTEMI (non-ST elevated myocardial infarction) Code(s): I21.4 - NON-ST ELEVATION (NSTEMI) MYOCARDIAL INFARCTION Status: Acute (2) Acute CHF Code(s): I50.9 - HEART FAILURE, UNSPECIFIED Status: Acute Qualifiers: Heart failure type: unspecified Qualified Code(s): I50.9 - Heart failure, unspecified Comment: suspecting systolic (3) Diabetes type 2, controlled Code(s): E11.9 - TYPE 2 DIABETES MELLITUS WITHOUT COMPLICATIONS Status: Chronic (4) Dyslipidemia Code(s): E78.5 - HYPERLIPIDEMIA, UNSPECIFIED Status: Chronic (5) GERD (gastroesophageal reflux disease) Code(s): K21.9 - GASTRO-ESOPHAGEAL REFLUX DISEASE WITHOUT ESOPHAGITIS Status: Chronic (6) Gout Code(s): M10.9 - GOUT, UNSPECIFIED Status: Chronic (7) Hypertension Code(s): I10 - ESSENTIAL (PRIMARY) HYPERTENSION Status: Chronic (8) Lactic acidosis Code(s): E87.2 - ACIDOSIS Status: Acute (9) Obesity (BMI 30.0-34.9) Code(s): E66.9 - OBESITY, UNSPECIFIED Status: Chronic (10) PAD (peripheral artery disease) Code(s): I73.9 - PERIPHERAL VASCULAR DISEASE, UNSPECIFIED Status: Chronic (11) Multiple vessel coronary artery disease Code(s): I25.10 - ATHSCL HEART DISEASE OF [place] CORONARY ARTERY W/O ANG PCTRS Status: Acute (12) Tobacco abuse Code(s): Z72.0 - TOBACCO USE Status: Chronic - Plan cont current plan of care * medication reviewed as below * symptomatic treatment * pt is euvolemic * stable medically * pt is planned for CABG later today * post CABG will defer management to CT surgeon and cardiology. Review of Systems - Review of Systems ENT: negative: Ear Pain, Ear Discharge, Nose Pain, Nose Discharge, Nose Congestion, Mouth Pain, Mouth Swelling, Throat Pain, Throat Swelling, Other Respiratory: negative: Cough, Dry, Shortness of Breath, Hemoptysis, SOB with Excertion, Pleuritic Pain, Sputum, Wheezing Cardiovascular: negative: chest pain, palpitations, orthopnea, paroxysmal nocturnal dyspnea, edema, light headedness, other Gastrointestinal: negative: Nausea, Vomiting, Abdominal Pain, Diarrhea, Constipation, Melena, Hematochezia, Other Genitourinary: negative: Dysuria, Frequency, Incontinence, Hematuria, Retention , Other Musculoskeletal: negative: Neck Pain, Shoulder Pain, Arm Pain, Back Pain, Hand Pain, Leg Pain, Foot Pain, Other Skin: negative: Rash, Lesions, Cade, Bruising, Other - Medications/Allergies Allergies/Adverse Reactions: Allergies Allergy/AdvReac Type Severity Reaction Status Date / Time No Known Allergies Allergy Unverified 08/01/17 20:09 Medications: Current Medications Acetaminophen (Tylenol) 650 mg PO Q6H PRN PRN Reason: Headache/Fever Or Mild Pain Hydrocodone Bitart/Acetaminophen ([place] 5/325) 1 tab PO Q4H PRN PRN Reason: Moderate Pain (4-6) Hydrocodone Bitart/Acetaminophen ([place] 5/325) 2 tab PO Q4H PRN PRN Reason: Severe Pain (7-10) Al Hydroxide/Mg Hydroxide (Maalox) 30 ml PO Q4H PRN PRN Reason: Indigestion Albumin Human (Albumin 5%) 12.5 gm IVPB Q6H PRN PRN Reason: To Maintain SBP> 90 mmHG Stop: 08/05/17 07:27 Albumin Human (Albumin 5%) 25 gm IVPB Q6H PRN PRN Reason: To Maintain SBP > 90 mmHG Stop: 08/05/17 07:27 Albuterol/Ipratropium (Duoneb) 3 ml NEB F3IS-LN PRN PRN Reason: SHORTNESS OF BREATH Aspirin (Aspirin Chewable) 81 mg PO DAILY [facility] Last Admin: 08/04/17 11:59 Dose: Not Given Aspirin (Ecotrin) 81 mg PO DAILY [facility] Last Admin: 08/04/17 12:00 Dose: Not Given Atorvastatin Calcium (Lipitor) 40 mg PO HS [facility] Bisacodyl (Dulcolax) 10 mg PO Q12H PRN PRN Reason: Constipation Bisacodyl (Dulcolax) 10 mg [place] Q12H PRN PRN Reason: Constipation Dextrose/Water (Dextrose 50%) 25 gm SLOW IVP PRN PRN PRN Reason: PER HYPOGLYCEMIC PROTOCOL Famotidine (Pepcid) 20 mg SLOW IVP Q12HR [facility] Last Admin: 08/04/17 12:00 Dose: Not Given Fentanyl (Sublimaze) 25 mcg SLOW IVP Q2H PRN PRN Reason: Moderate Pain (4-6) Stop: 08/06/17 07:26 Fentanyl (Sublimaze) 50 mcg SLOW IVP Q2H PRN PRN Reason: Severe Pain (7-10) Stop: 08/06/17 07:26 Glucagon (Glucagon) 1 mg SC PRN PRN PRN Reason: PER HYPOGLYCEMIC PROTOCOL Guaifenesin/Dextromethorphan (Robitussin Dm) 15 ml PO Q4H PRN PRN Reason: Cough Hydralazine HCl (Apresoline) 10 mg SLOW IVP Q6H PRN PRN Reason: To Maintain SBP< 140mmHG Heparin Sodium (Porcine) 30, (000 units/ Sodium Chloride) 1,003 mls @ 0 mls/hr FS [place] ELO PRN Reason: As Directed Stop: 08/04/17 18:00 Hetastarch/Sodium Chloride (Hespan) 500 mls @ 0 mls/hr IVPB PRN PRN; As Directed PRN Reason: To Maintain SBP > 90mmHg Stop: 08/05/17 07:26 Norepinephrine Bitartrate (Levophed) 250 mls @ 0 mls/hr IVPB PRN PRN; Protocol ; Titrate PRN Reason: To maintain SBP > 90 mmHG Nitroglycerin/Dextrose (Nitroglycerin 50 Mg/250 Ml Bot) 250 mls @ 0 mls/hr IVPB PRN PRN; Protocol; Titrate PRN Reason: To Maintain SBP< 140mmHG Sodium Chloride (Normal Saline 0.9%) 1,000 mls @ 75 mls/hr IV .[id number] [facility] Last Admin: 08/04/17 11:59 Dose: Not Given Insulin Human Regular 100 (units/ Sodium Chloride) 101 mls @ 0 mls/hr IVPB INF [facility]; As Directed PRN Reason: Protocol Dextrose/Water (D5w) 1,000 mls @ 0 mls/hr IV INF PRN; As Directed PRN Reason: PRN HYPOGLYCEMIC PROTOCOL Insulin Glargine (Lantus) 0 units SC ONE PRN PRN Reason: PER OPEN HEART ORDERS Stop: 08/05/17 17:00 Insulin Human Regular (Humulin R) 0 units SC Q4H PRN; Protocol PRN Reason: POST OP SLIDING SCALE Morphine Sulfate (Morphine) 2 mg SLOW IVP Q15MIN PRN PRN Reason: Severe Pain (7-10) Ondansetron HCl (Zofran) 4 mg IVP Q6H PRN PRN Reason: Nausea/Vomiting Potassium Chloride (Kcl) 20 meq IVPB PRN PRN PRN Reason: K level </= 4.0 Pregabalin (Lyrica) 100 mg PO QAM [facility] Last Admin: 08/04/17 12:00 Dose: Not Given Promethazine HCl (Phenergan) 6.25 mg IM Q4H PRN PRN Reason: Nausea/Vomiting
[2017-08-04] MEDS: Furosemide 40 MG TAB PO SCH (13:16)
[2017-08-04 14:16] LABS: Actual Bicarbonate (HCO3a) 20.1 mEq/L (22-26); Base Excess (BEa) -5.9 mEq/L (0 (+/-) 2.5); CO2 Tension 41.6 mmHg (35.0-45.0); Hematocrit-ABG 34.9 % (36.0-47.0); Hemoglobin (Hb) 10.3 g/dL (12.0-16.0); O2 Tension (PaO2) 104.3 mmHg (80.0-100.0)
[2017-08-04 14:17] LABS: Calcium, Ionized 1.2 mmol/L (1.12-1.30); Puncture Site ALINE
[2017-08-04 14:22] LABS: Hemoglobin 10.8 g/dL (12.0-16.0); Hemoglobin 10.9 g/dL (12.0-16.0); Mean Corpuscular HGB CONC 32.3 g/dL (32.0-36.0); Mean Corpuscular Hemoglobin 29.8 pg (27.0-31.0); Mean Corpuscular Volume 92.2 fl (81.0-99.0); Mean Platelet Volume 8.5 fL (7.4-10.4); Platelet Count 138 thou/uL (130-400); RBC Distribution Width 14.4 % (11.5-14.5); Red Blood Cell (RBC) Count 3.63 mill/uL (4.20-5.40); White Blood Cell (WBC) Count 21.9 thou/uL (4.8-10.8)
[2017-08-04 14:27] LABS: INR-International Normal Ratio 1.3; PTT 31.9 SEC (22.9-36.1); Prothrombin Time 16.3 SEC (12.0-14.7)
--- NOTE | 2017-08-04 14:30 | RAD ---
SINGLE VIEW OF THE CHEST: COMPARISON: 08/03/17. HISTORY: Status post open heart surgery. FINDINGS: A single view of the chest shows an enlarged cardiomediastinal silhouette. The patient is status pos t sternotomy. There is an endotracheal tube with its tip approximately 1.5 cm from the cody. The central venous catheter is seen with its tip in the superior vena cava. Left-sided chest tubes are p resent. No pneumothorax is seen. IMPRESSION: Slightly low-lying endotracheal tube should be withdrawn approximately 1 cm. POS: [facility]
[2017-08-04] MEDS ORDERED: Norepinephrine 8 MG, Admixture Fee 1 EACH in Sodium Chloride 0.9% 250 ML 250 ML IVPB PRN (14:36)
[2017-08-04] MEDS ORDERED: Norepinephrine 8 MG/250 ML BAG IVPB PRN (14:39)
[2017-08-04 14:46] LABS: Anion Gap 10 mmol/L (10-20); BUN (Urea Nitrogen) 13 mg/dL (9.8-20.1); Calc. Creatinine Clearance 93 mL/min (70-130); Carbon Dioxide 20 mmol/L (23-31); Chloride 112 mmol/L (98-107); Estimated GFR-MDRD 85; Glucose 142 mg/dL (80-115); Sodium 138 mmol/L (136-145)
[2017-08-04 14:47] LABS: Band 16 % (5-11); Lymphocytes 9 % (21-51); MDiff Complete? YES; Metamyelocyte 2 % (0-0); Monocytes 9 % (0-10); Neutrophil 64 % (42-75); Ovalocytes SLIGHT = 2-5 cells (100X) (0-1/hpf); PLT Morphology Comment Appears Adequate; Polychromasia SLIGHT = 2-3 cells (100X) (0-2/hpf); Target Cells SLIGHT = 2-5 cells (100X) (0-1/hpf)
[2017-08-04] MEDS ORDERED: PHENYLEPHRINE-NS 100 MCG/ML 10 ML SYRINGE ONE (15:00)
[2017-08-04] MEDS ORDERED: Protamine Sulfate 250 MG/25 ML VIAL ONE (15:00)
[2017-08-04] MEDS ORDERED: Heparin 5,000 UNITS/ML VIAL ONE (15:00)
[2017-08-04] MEDS ORDERED: PROPOFOL 200 MG/20 ML VIAL ONE (15:00)
[2017-08-04] MEDS ORDERED: ePHEDrine/0.9% NaCl/PF SYRINGE 50 mg/10 ml ONE (15:00)
[2017-08-04] MEDS ORDERED: Heparin 30,000 units/30 ml VIAL ONE (15:00)
[2017-08-04] MEDS ORDERED: Cardioplegic Soln 1,000 ML BAG ONE (15:00)
[2017-08-04] MEDS ORDERED: Calcium Chloride 1 GM/10 ML Abboject SYRINGE ONE (15:00)
[2017-08-04] MEDS ORDERED: Sterile Water 10 ML VIAL ONE (15:00)
[2017-08-04] MEDS ORDERED: Sodium Bicarb 50 MEQ/50 ML Abboject 8.4% SYRINGE ONE (15:00)
[2017-08-04] MEDS ORDERED: Mannitol 12.5 GM/50 ML ONE (15:00)
[2017-08-04] MEDS ORDERED: Magnesium 5 GM/10 ML VIAL ONE (15:00)
[2017-08-04] MEDS ORDERED: Potassium Chlo 10 mEq/5 ml Syr ONE (15:00)
[2017-08-04] MEDS ORDERED: Norepinephrine 4 MG/4 ML VIAL ONE (15:00)
[2017-08-04] MEDS ORDERED: Papaverine 60 MG/2 ML VIAL ONE (15:00)
[2017-08-04] MEDS ORDERED: Lidocaine 2% PF 100 mg/5 ml Syringe ONE (15:00)
[2017-08-04] MEDS ORDERED: Morphine 4 MG/ML VIAL SLOW IVP PRN (17:00)
[2017-08-04] MEDS: Potassium Chloride 20 MEQ/100 ML PREMIX BAG IVPB PRN (17:05)
--- NOTE | 2017-08-04 18:52 | OP ---
DATE OF PROCEDURE: 08/04/2017 PROCEDURES PERFORMED: Right subclavian central line placement, coronary artery bypass grafting x3 wi th left internal mammary artery to the distal LAD and reverse greater saphenous vein graft from the a katiana to the first obtuse marginal and to the diagonal. PREOPERATIVE DIAGNOSIS: Coronary artery disease, status post non-ST elevation myocardial infarction. POSTOPERATIVE DIAGNOSIS: Coronary artery disease, status post non-ST elevation myocardial infarction . SURGEON: Robert Perez MD GALLERY OR MUSEUM ATTENDANT: Howie. ANESTHESIA: General endotracheal anesthesia. INDICATIONS: The patient is a 66-year-old diabetic woman who has been having daily pain that she sarah cribed as heartburn an episode that was severe enough to prompt presentation to the hospital, was ass ociated with positive troponins consistent with a non-ST elevation [place]. Cardiac catheterization demon strated a left dominant system with a hazy left main lesion extending into the ostium of the LAD in a ddition to a disease in branch vessels in the circumflex system. She had preserved left ventricular function. She is now taken to the operating room for coronary revascularization. FINDINGS: The pump time 70 minutes. Cross-clamp time 35 minutes. Good quality JUAN MANUEL. Slightly small thin walled saphenous vein that became very small and thin walled in the distal thighs, prompting op en harvest from both thighs. The LAD was a diffusely diseased vessel that was about 1.5-2 mm where i n diameter where it was grafted distally. The diagonal had diffused proximal disease. It was about a 1.5 mm, fairly good quality vessel were grafted. The OM1 was a rock hard vessel proximally, but wa s reasonably good quality 1.5-2 mm vessel were grafted. The distal circumflex system was explored. The PDA could not be identified. Other than perhaps some miniscule branches emerging from the AV danielle ove posterolateral branch was only about 1 mm vessel in the AV groove deep in the epicardial fat. It was thin walled and I elected not to attempt grafting of it. NARRATIVE REPORT: After informed consent was obtained, the patient was taken to the operating room a nd placed in supine position on the operating table. After the induction of general anesthesia, the patient was placed in Trendelenburg and the right chest was prepped and draped in sterile fashion. A triple-lumen central line kit was used to place right subclavian central line. By the Seldinger niecy hnique, all three ports easily aspirated and flushed. The saphenous veins were then examined ultraso nographic. They appeared to be somewhat better in the left thigh than the right, but in both sides a split into very small branches in the distal thigh and no branch at all could be identified at the l evel of the knee. The patient's torso groins in the lower extremities were then prepped and draped i n sterile fashion. The saphenous vein was exposed in the upper left thigh and then harvested through a skin bridge technique from the groin near the saphenofemoral junction down to the distal thigh wer e bifurcated into 2 very small branches. The right greater saphenous vein was harvested in a similar fashion both harvest beds were rather deep. The right one particularly so and it was elected to juana se those incisions over bulb suction drains. A 19 Turk[place] bulb suction drains were placed and secured to the suture in a groin incisions and the harvest sites were closed in layers, the subcutaneous and subcuticular Vicryl. Median sternotomy was performed. The left pleural space was entered and the l eft JUAN MANUEL was mobilized as a pedicle from the level of the xiphoid to the level of the subclavian vein. Side branches were controlled with small Hemoclips. The patient was heparinized and the mammary wa s ligated and divided distally. There was good flow through the mammary. Distally, it was somewhat small and spastic the spasm relieved fairly well with papaverine solution several centimeters of the distal mammary were skeletonized to expose it up at a level where it was a larger vessel. The mammar y bed was inspected for hemostasis. The JUAN MANUEL retractor was replaced with a sternal retractor. The pe ricardium was opened and marsupialized and the aorta was palpated and was soft. A double concentric pursestring of 2-0 Ethibond was placed in the ascending aorta just beyond the pericardial reflection and a single pursestring was placed in the right atrial appendage. Aortic and venous cannulae were i nserted and secured by their pursestrings. The plane between the aorta and the pulmonary artery was developed. Cardiopulmonary bypass was instituted and the patient was systemically cooled. The heart was examined. The vessels to be bypassed were identified. A longitudinal slit was made in the kaylie cardium anterior to the left phrenic nerve through which the mammary pedicle could be passed and aort ic cross clamp was applied and cardioplegia was administered through an aortic root needle. When arr ested been achieved, attention was turned to the distal circumflex system with the heart rested, stil l no PDA could be identified. The posterolateral branch was explored and found to still be a very sm all vessel as it was diving well into the epicardial fat at the AV groove and it was opted not to att empt grafting of this very small, very thin-walled vessel that was difficult to adequately expose. A ttention was then turned to the more proximal circumflex system. The more anterior branch of the fir st obtuse marginal appeared to be larger and better quality. It was opened with a [place] blade and D lucilatrich scissors. Reverse saphenous vein was anastomosed to it with running Prolene suture and the a nastomosis tested by flushing cold cardioplegic down the graft. The diagonal was then opened and gra fted in a similar fashion. The LAD was opened distally where there was a soft spot and the mammary w as anastomosed with running 7-0 Prolene. The mammary pedicle was tacked to the epicardium. The aort ic crossclamp was replaced with a partial occluding clamp. Aortotomy was made in the ascending aorta with a scalpel and punch incorporating the root needle site for one of the aortotomies. The diagona l graft was anastomosed to the more proximal aortotomy, the OM graft to the more distal aortotomy. T he vein grafts were occluded and the partial occluding clamp removed. The vein grafts were deaired. The anastomoses were inspected for hemostasis. Posterior pericardial and left pleural drains were b rought out through separate incision and secured suture. Right atrial and right ventricular temporar y epicardial pacing wires were placed. The patient was then easily from cardiopulmonary by pass. The aortic and venous cannulae were removed and their pursestring secured. Protamine was admi nistered. When hemostasis was adequate, an anterior mediastinal drain was placed. It was not feasib le to close the pericardium completely. The mediastinal fat was tacked back together to cover up the aorta and proximal portions of the vein grafts. The inferior medial aspect of the pericardium near the diaphragmatic surface were tacked back together. The sternum was reapproximated with a combinati on of simple and yfhelx-mt-qhony #7 stainless steel wires. The fascia was closed over the wires heav y Vicryl and subcutaneous tissue was irrigated and reapproximated and the skin was closed with the Vi cryl subcuticular stitch. The wounds were dressed and the patient was taken to the Intensive Care Un it in stable condition.
[2017-08-04] MEDS: Atorvastatin Calcium 40 MG TAB PO SCH (21:26)
[2017-08-05] MEDS: Fentanyl 100 MCG/2 ML VIAL SLOW IVP PRN ×4 (00:29→16:26)
[2017-08-05] MEDS: Acetaminophen 1,000 MG in Premix Bag 1 BAG IVPB PRN ×3 (02:20→19:42)
[2017-08-05 05:02] LABS: Anion Gap 10 mmol/L (10-20); BUN (Urea Nitrogen) 13 mg/dL (9.8-20.1); Calc. Creatinine Clearance 95 mL/min (70-130); Calcium 7.9 mg/dL (7.8-10.44); Carbon Dioxide 20 mmol/L (23-31); Chloride 112 mmol/L (98-107); Estimated GFR-MDRD 83; Glucose 165 mg/dL (80-115); Potassium 4.1 mmol/L (3.5-5.1); Sodium 138 mmol/L (136-145)
[2017-08-05 05:24] LABS: Band 10 % (5-11); Hemoglobin 9.9 g/dL (12.0-16.0); Hypochromia SLIGHT = 6-15 cells (100X) (0-5/hpf); Lymphocytes 9 % (21-51); MDiff Complete? YES; Mean Corpuscular HGB CONC 32.3 g/dL (32.0-36.0); Mean Corpuscular Hemoglobin 29.8 pg (27.0-31.0); Mean Corpuscular Volume 92.2 fl (81.0-99.0); Mean Platelet Volume 8.9 fL (7.4-10.4); Monocytes 11 % (0-10); Neutrophil 70 % (42-75); PLT Morphology Comment Appears Adequate; Platelet Count 133 thou/uL (130-400); RBC Distribution Width 14.6 % (11.5-14.5); Red Blood Cell (RBC) Count 3.32 mill/uL (4.20-5.40); White Blood Cell (WBC) Count 12.9 thou/uL (4.8-10.8)
[2017-08-05] MEDS: Sodium Chloride 0.9% 1,000 ML IV SCH ×4 (06:47→23:53)
[2017-08-05 08:03] LABS: Actual Bicarbonate (HCO3a) 18.7 mEq/L (22-26); Base Excess (BEa) -4.5 mEq/L (0 (+/-) 2.5); CO2 Tension 27.9 mmHg (35.0-45.0); pH, Arterial 7.44 (7.35-7.45)
[2017-08-05 08:04] LABS: ALV-art Gradient 184.325 (0-20); Calcium, Ionized 1.2 mmol/L (1.12-1.30); Hematocrit-ABG 30.3 % (36.0-47.0); Hemoglobin (Hb) 9.5 g/dL (12.0-16.0); Puncture Site ALINE
[2017-08-05] MEDS ORDERED: Ketorolac Tromethamine 30 MG/ML VIAL ONE (10:00)
[2017-08-05] MEDS: Aspirin 81 mg Enteric Coated Tablet PO SCH (10:34)
[2017-08-05] MEDS: Famotidine/PF 20 mg/2ml Vial SLOW IVP SCH ×2 (11:01→20:36)
--- NOTE | 2017-08-05 11:09 | RAD ---
PORTABLE CHEST: Date: 08/05/17 HISTORY: Postop open heart surgery. COMPARISON: Prior day's study. FINDINGS: Endotracheal tube, left chest tube, and right subclavian line are all unchanged in position. Heart si ze is enlarged. Parenchymal lung changes are stable. IMPRESSION: Stable exam. POS: PATRICIA
[2017-08-05] MEDS: Ketorolac Tromethamine 30 MG/ML VIAL IVP SCH ×3 (12:22→23:52)
[2017-08-05] MEDS: Pregabalin 25 MG CAP PO SCH (12:24)
--- NOTE | 2017-08-05 12:28 | CON ---
DATE OF CONSULTATION: 08/05/2017 The following encompassed 45 minutes of critical care time. HISTORY OF PRESENT ILLNESS: This is a 66-year-old black female, who underwent coronary artery bypass grafting surgery yesterday for extensive coronary artery disease. She has remained on the ventilato r overnight and has been difficult to wean secondary to tachypnea and hypoxemia. PAST MEDICAL HISTORY: 1. SISI. 2. Suspected chronic obstructive pulmonary disease. 3. Hypertension. 4. Diabetes mellitus. 5. Hyperlipidemia. 6. Lumbar disk disease with radiculopathy. 7. Proteinuria. 8. Gout. PAST SURGICAL HISTORY: 1. Coronary artery bypass grafting surgery yesterday. 2. Back surgery. 3. Cataract surgery. 4. Hysterectomy. MEDICATIONS PRIOR TO ADMISSION: 1. Allopurinol 100 mg daily. 2. Metformin 500 mg 3 times daily. 3. Potassium chloride 20 mEq daily. 4. [id number] mg twice daily. 5. Pioglitazone 30 mg daily. 6. Januvia 50 mg daily. 7. Lisinopril 40 mg daily. 8. Tizanidine 4 mg daily. 9. Simvastatin 20 mg daily. 10. Norvasc 10 mg daily. 11. Omeprazole 40 mg daily. SOCIAL HISTORY: She smokes about 3 cigarettes per day. It is suspected that she smoked more in the past. She does not consume alcohol or use illicit drugs. FAMILY MEDICAL HISTORY: Remarkable for coronary artery disease and diabetes mellitus. REVIEW OF SYSTEMS: Cannot be obtained secondary to patient being on mechanical ventilation. PHYSICAL EXAMINATION: VITAL SIGNS: Temperature 100.2, T-max of 101.3, pulse 92, blood pressure 124/54 via art-line. Intak e for the last 12 hours 1950, output 1730. GENERAL: She is on mechanical ventilation. She will follow some commands. HEENT: Unremarkable. NECK: No adenopathy or JVD. LUNGS: Distant breath sounds with wheezing or rhonchi. CARDIAC: S1 and S2 regular without murmur. ABDOMEN: Soft, nontender, and nondistended. EXTREMITIES: No clubbing, cyanosis, or edema. LABORATORY DATA: ABG: pH of 7.44, pCO2 of 27, PO2 of 64 that was on CPAP 5, pressure support 10, bu t her respiratory rate was around 44. Sodium 138, potassium 4.1, chloride 112, CO2 of 20, BUN 13, cr eatinine 0.8, glucose 165. White blood cell count 12.9, hematocrit 38.6, platelet count 133. IMAGING: Chest x-ray demonstrates cardiomegaly, some pulmonary edema, the endotracheal tube is in go od position. She has a right subclavian central line, which is in good position. ASSESSMENT: 1. Status post coronary artery bypass grafting surgery. 2. Postoperative respiratory failure -- expected post-surgery and not a complication of surgery. 3. Underlying chronic obstructive pulmonary disease. 4. Underlying obstructive sleep apnea. PLAN: I suspect that she is a little too weak right now to proceed with aggressive weaning. I will have respiratory therapy slowly turn down her pressure support during the day, so long as her tidal v olume seems appropriate, I will start her on more aggressive nebulization treatments on scheduled man ner. She may end up staying on the ventilator throughout the day today, but hopefully at the latest, she can be extubated by tomorrow. Thank you for the opportunity to participate in this lady's care.
[2017-08-05] MEDS ORDERED: Insulin Glargine 18 UNITS in Pre-Filled Syringe 1 EACH SC PRN (13:05)
--- NOTE | 2017-08-05 15:21 | EKG ---
Test Reason : Blood Pressure : / mmHG Vent. Rate : 116 BPM Atrial Rate : 116 BPM P-R Int : 158 ms QRS Dur : 092 ms QT Int : 336 ms P-R-T Axes : 048 065 136 degrees QTc Int : 467 ms Sinus tachycardia Marked ST abnormality, possible lateral subendocardial injury Abnormal ECG Confirmed by JARVIS LAMB, LISA Sen ([id number]), editorial specialist HERON WEBBER ([id number]) on 08/05/2017 3:21:13 PM Referred By: Confirmed By:LISA CONLEY MD
[2017-08-05] MEDS: Atorvastatin Calcium 40 MG TAB PO SCH (20:42)
[2017-08-05] MEDS: Insulin Regular 300 UNITS/3 ML VIAL SC PRN (21:09)
--- NOTE | 2017-08-05 23:48 | PDOC.PN ---
- Subjective Encounter Start Date: 08/05/17 Encounter Start Time: 18:30 Patient seen and examined for NSTEMI. Intubated on Vent. No new complaints. No overnight events - Objective Resuscitation Status: Resuscitation Status FULL:Full Resuscitation MAR Reviewed: Yes Vital Signs & Weight: Vital Signs (12 hours) Temp Pulse Resp BP Pulse Ox 08/05/17 22:42 84 08/05/17 22:41 86 17 100 08/05/17 22:00 24 H 08/05/17 20:00 20 08/05/17 18:42 103 H 08/05/17 18:40 103 H 23 H 100 08/05/17 18:00 19 08/05/17 16:00 25 H 08/05/17 14:45 92 101/46 L 08/05/17 14:00 22 H 08/05/17 13:13 93 08/05/17 12:00 100.6 F H 21 H Weight Admit Weight 188 lb 5 oz Weight 196 lb 3.376 oz Most Recent Monitor Data Heart Rate from ECG 90 NIBP 107/47 NIBP BP-Mean 72 Respiration from ECG 12 SpO2 97 I&O: 08/04/17 08/05/17 08/06/17 06:59 06:59 06:59 Intake Total 1494.6 1950 473 Output Total 3125 1730 1054 Balance -1630.4 220 -581 Result Diagrams: 08/07/17 05:46 08/07/17 05:46 Additional Labs: Accuchecks 08/05/17 08/05/17 08/05/17 20:59 16:05 11:20 POC Glucose 146 H 125 H 138 H 08/05/17 08/05/17 08/05/17 09:09 07:24 06:14 POC Glucose 127 H 113 H 138 H 08/05/17 08/05/17 08/05/17 05:02 04:10 03:18 POC Glucose 120 H 135 H 164 H 08/05/17 08/05/17 08/04/17 02:26 00:11 23:06 POC Glucose 161 H 136 H 139 H 08/04/17 22:10 POC Glucose 131 H EKG Reviewed by me: Yes (Tele SR) Phys Exam - Physical Examination Constitutional: NAD Intubated Respiratory: no wheezing, no rhonchi Cardiovascular: RRR, no rub Gastrointestinal: soft, no distention, positive bowel sounds Musculoskeletal: no edema Dx/Plan (1) NSTEMI (non-ST elevated myocardial infarction) Code(s): I21.4 - NON-ST ELEVATION (NSTEMI) MYOCARDIAL INFARCTION Status: Acute (2) Multiple vessel coronary artery disease Code(s): I25.10 - ATHSCL HEART DISEASE OF [place] CORONARY ARTERY W/O ANG PCTRS Status: Acute Comment: s/p CABG (3) Diabetes type 2, controlled Code(s): E11.9 - TYPE 2 DIABETES MELLITUS WITHOUT COMPLICATIONS Status: Chronic (4) Dyslipidemia Code(s): E78.5 - HYPERLIPIDEMIA, UNSPECIFIED Status: Chronic - Plan DVT proph w/SCDs Cont post op care -: Cont current meds as below -: Cont insulin drip -: AM labs Review of Systems - Review of Systems Other: Cannot obtain due to current clinical status - Medications/Allergies Allergies/Adverse Reactions: Allergies Allergy/AdvReac Type Severity Reaction Status Date / Time No Known Allergies Allergy Unverified 08/01/17 20:09 Medications: Current Medications Acetaminophen (Tylenol) 650 mg PO Q6H PRN PRN Reason: Headache/Fever Or Mild Pain Hydrocodone Bitart/Acetaminophen ([place] 5/325) 1 tab PO Q4H PRN PRN Reason: Moderate Pain (4-6) Hydrocodone Bitart/Acetaminophen ([place] 5/325) 2 tab PO Q4H PRN PRN Reason: Severe Pain (7-10) Al Hydroxide/Mg Hydroxide (Maalox) 30 ml PO Q4H PRN PRN Reason: Indigestion Albuterol/Ipratropium (Duoneb) 3 ml NEB [id number] [facility] Last Admin: 08/05/17 22:41 Dose: 3 ml Aspirin (Aspirin Chewable) 81 mg PO DAILY [facility] Last Admin: 08/05/17 12:23 Dose: Not Given Atorvastatin Calcium (Lipitor) 40 mg PO HS [facility] Last Admin: 08/05/17 20:42 Dose: Not Given Bisacodyl (Dulcolax) 10 mg PO Q12H PRN PRN Reason: Constipation Bisacodyl (Dulcolax) 10 mg SD Q12H PRN PRN Reason: Constipation Dextrose/Water (Dextrose 50%) 25 gm SLOW IVP PRN PRN PRN Reason: PER HYPOGLYCEMIC PROTOCOL Famotidine (Pepcid) 20 mg SLOW IVP Q12HR ELO Last Admin: 08/05/17 20:36 Dose: 20 mg Fentanyl (Sublimaze) 25 mcg SLOW IVP Q2H PRN PRN Reason: Moderate Pain (4-6) Stop: 08/06/17 07:26 Last Admin: 08/05/17 03:10 Dose: 25 mcg Fentanyl (Sublimaze) 50 mcg SLOW IVP Q2H PRN PRN Reason: Severe Pain (7-10) Stop: 08/06/17 07:26 Last Admin: 08/05/17 16:26 Dose: 50 mcg Glucagon (Glucagon) 1 mg SC PRN PRN PRN Reason: PER HYPOGLYCEMIC PROTOCOL Guaifenesin/Dextromethorphan (Robitussin Dm) 15 ml PO Q4H PRN PRN Reason: Cough Hydralazine HCl (Apresoline) 10 mg SLOW IVP Q6H PRN PRN Reason: To Maintain SBP< 140mmHG Nitroglycerin/Dextrose (Nitroglycerin 50 Mg/250 Ml Bot) 250 mls @ 0 mls/hr IVPB PRN PRN; Protocol; Titrate PRN Reason: To Maintain SBP< 140mmHG Sodium Chloride (Normal Saline 0.9%) 1,000 mls @ 75 mls/hr IV .[id number] ELO Last Admin: 08/05/17 17:10 Dose: 1,000 mls Insulin Human Regular 100 (units/ Sodium Chloride) 101 mls @ 0 mls/hr IVPB INF ELO; As Directed PRN Reason: Protocol Last Admin: 08/04/17 16:03 Dose: 101 mls Dextrose/Water (D5w) 1,000 mls @ 0 mls/hr IV INF PRN; As Directed PRN Reason: PRN HYPOGLYCEMIC PROTOCOL Norepinephrine Bitartrate (Levophed) 250 mls @ 0 mls/hr IVPB INF PRN; Protocol ; Titrate PRN Reason: Blood Pressure Acetaminophen 1,000 mg/ Device 100 mls @ 400 mls/hr IVPB Q6H PRN PRN Reason: Fever/Mild Pain Stop: 08/06/17 02:15 Last Admin: 08/05/17 19:42 Dose: 100 mls Insulin Human Regular (Humulin R) 0 units SC Q4H PRN; Protocol PRN Reason: POST OP SLIDING SCALE Last Admin: 08/05/17 21:09 Dose: 3 unit Ketorolac Tromethamine (Toradol) 30 mg IVP Q6HR [facility] Stop: 08/08/17 12:01 Last Admin: 08/05/17 17:00 Dose: 30 mg Morphine Sulfate (Morphine) 2 mg SLOW IVP Q15MIN PRN PRN Reason: Severe Pain (7-10) Last Admin: 08/04/17 17:19 Dose: 2 mg Ondansetron HCl (Zofran) 4 mg IVP Q6H PRN PRN Reason: Nausea/Vomiting Potassium Chloride (Kcl) 20 meq IVPB PRN PRN PRN Reason: K level </= 4.0 Last Admin: 08/04/17 17:05 Dose: 20 meq [facility]regabalin (Lyrica) [facility] [place] Last Admin: 08/05/17 12:24 Dose: Not Given Promethazine HCl (Phenergan) 6.25 mg IM Q4H PRN PRN Reason: Nausea/Vomiting
[2017-08-06] MEDS: Insulin Regular 300 UNITS/3 ML VIAL SC PRN ×5 (00:09→21:54)
--- NOTE | 2017-08-06 01:28 | PRG ---
DATE OF SERVICE: 08/05/2017 SUBJECTIVE: The patient was seen on 08/05/2017. She is status post bypass surgery x3 yesterday, she still is on the ventilator. She is motioning and complaining that she has some leg pain, otherwise seems to be doing quite well. She is still on the ventilator. She had continued to smoke prior to h er bypass surgery. Otherwise, seems to be doing quite well. She has had no new events overnight. OBJECTIVE: VITAL SIGNS: Her blood pressure is 113/54, heart rate is 96 and appears to be regular at this time, respiratory rate is 20. GENERAL: She is alert. She is easily arousable. CHEST: Her chest is clear anteriorly. CARDIOVASCULAR: Exam reveals a regular rate and rhythm. ABDOMEN: Abdominal exam was also nontender. EXTREMITIES: Show no significant edema. LABORATORY DATA: Hemoglobin is 9.9, hematocrit 30.6. WBCs of 12.9, creatinine 0.83. IMPRESSION: 1. Status post non-ST segment elevation myocardial infarction and bypass surgery. She seems to be d oing quite well and will continue to monitor her. I reviewed her medications. I would agree the med ication as far as her cardiac status is concerned. 2. History of diabetes, will be looked by the primary care service. 3. Hypertension. This is also under good control at this time. We will continue to follow the dangelo ent with you on a routine basis.
[2017-08-06] MEDS: Fentanyl 100 MCG/2 ML VIAL SLOW IVP PRN (02:23)
[2017-08-06 04:42] LABS: #Eosinphils 0.6 thou/uL (0.0-0.7); #Lymphocytes 1.7 thou/uL (1.20-3.40); #Monocytes 1.1 thou/uL (0.11-0.59); %Basophils 0.1 % (0.0-1.0); %Eosinophils 4.4 % (0.0-10.0); %Lymphocytes 12.8 % (21.0-51.0); %Neutrophils 74.6 % (42.0-75.0); Hemoglobin 8.3 g/dL (12.0-16.0); Mean Corpuscular Hemoglobin 29.7 pg (27.0-31.0); Mean Corpuscular Volume 92.9 fl (81.0-99.0); Mean Platelet Volume 8.9 fL (7.4-10.4); Platelet Count 129 thou/uL (130-400); RBC Distribution Width 14.6 % (11.5-14.5); Red Blood Cell (RBC) Count 2.78 mill/uL (4.20-5.40); White Blood Cell (WBC) Count 13.3 thou/uL (4.8-10.8)
[2017-08-06 04:52] LABS: Anion Gap 8 mmol/L (10-20); BUN (Urea Nitrogen) 13 mg/dL (9.8-20.1); Calc. Creatinine Clearance 97 mL/min (70-130); Carbon Dioxide 21 mmol/L (23-31); Chloride 113 mmol/L (98-107); Estimated GFR-MDRD 86; Glucose 134 mg/dL (80-115); Potassium 3.6 mmol/L (3.5-5.1); Sodium 138 mmol/L (136-145)
[2017-08-06] MEDS: Ketorolac Tromethamine 30 MG/ML VIAL IVP SCH ×4 (05:16→23:08)
[2017-08-06] MEDS: Sodium Chloride 0.9% 1,000 ML IV SCH (05:17)
[2017-08-06] MEDS: Pregabalin 25 MG CAP PO SCH ×2 (07:56→15:47)
[2017-08-06 08:36] LABS: Actual Bicarbonate (HCO3a) 18.2 mEq/L (22-26); Base Excess (BEa) -4.9 mEq/L (0 (+/-) 2.5); CO2 Tension 26.5 mmHg (35.0-45.0); Calcium, Ionized 1.2 mmol/L (1.12-1.30); Hematocrit-ABG 24.1 % (36.0-47.0); Hemoglobin (Hb) 7.8 g/dL (12.0-16.0); O2 Tension (PaO2) 54.9 mmHg (80.0-100.0); Puncture Site ALINE; pH, Arterial 7.46 (7.35-7.45)
[2017-08-06 08:38] LABS: ALV-art Gradient 195.175 (0-20)
[2017-08-06] MEDS: Famotidine/PF 20 mg/2ml Vial SLOW IVP SCH ×2 (10:15→21:57)
[2017-08-06] MEDS ORDERED: Furosemide 40 MG/4 ML VIAL SLOW IVP SCH (10:15)
--- NOTE | 2017-08-06 10:37 | RAD ---
PORTABLE CHEST: Date: 08/06/17 HISTORY: Postop open heart surgery. COMPARISON: Prior day's exam. FINDINGS: Left chest tube remains in place. Endotracheal tube and right subclavian line are unchanged. Bibasila r lung changes appear stable. IMPRESSION: Essentially stable exam. POS: PATRICIA
[2017-08-06] MEDS: Potassium Chloride 20 MEQ/100 ML PREMIX BAG IVPB PRN (10:44)
--- NOTE | 2017-08-06 11:00 | PRG ---
DATE OF SERVICE: 08/06/2017 Thirty minutes critical care time. SUBJECTIVE: The patient remains intubated on mechanical ventilation. She is awake and follows comma nds. PHYSICAL EXAMINATION: VITAL SIGNS: On exam, her temperature is 100.0, pulse 88, blood pressure 105/53, a 24-hour intake 13 83 and output 1342. HEENT: Unremarkable. NECK: No JVD. LUNGS: Fairly clear breath sounds without wheezing. CARDIAC: S1 and S2, slightly tachycardic. ABDOMEN: Soft, nontender. EXTREMITIES: No clubbing, cyanosis, or edema. LABORATORY DATA: ABG is pending. White blood cell count 13.3, hematocrit 25.9, platelet count 129. Sodium 130, potassium 3.6, chloride 113, CO2 of 21, BUN 13, creatinine 0.8, glucose 134. Chest x-ra y shows no significant change. Her exam is grossly rotated. She looks like she has a pulmonary kaiser a in the bases. ASSESSMENT: 1. Status post coronary artery bypass grafting surgery. 2. Postoperative respiratory failure - expected postoperative surgery event and this is not a compli cation of surgery. 3. Underlying chronic obstructive pulmonary disease. 4. Underlying obstructive sleep apnea. PLAN: Check ABG. If it looks decent, then my inclination is to go ahead and extubate the patient an d observe her closely.
[2017-08-06] MEDS: HYDROcodone/Acetaminophen 5/325 mg Tablet PO PRN ×3 (12:09→23:09)
[2017-08-06] MEDS ORDERED: Pregabalin 25 MG CAP PO SCH (15:45)
[2017-08-06] MEDS: metFORMIN XR 500 MG TAB PO SCH (16:46)
[2017-08-06] MEDS: Atorvastatin Calcium 40 MG TAB PO SCH (21:54)
--- NOTE | 2017-08-06 21:59 | PDOC.PN ---
- Subjective Encounter Start Date: 08/06/17 Encounter Start Time: 14:00 Patient seen and examined for NSTEMI. No new complaints. No overnight events - Objective Resuscitation Status: Resuscitation Status FULL:Full Resuscitation MAR Reviewed: Yes Vital Signs & Weight: Vital Signs (12 hours) Temp Pulse Resp Pulse Ox 08/06/17 18:39 95 15 96 08/06/17 17:00 98.9 F 08/06/17 14:24 91 16 08/06/17 11:00 98.8 F 08/06/17 10:43 88 22 H 08/06/17 10:24 99.9 F H 98 19 93 L Weight Admit Weight 188 lb 5 oz Weight 195 lb 8.8 oz Most Recent Monitor Data Heart Rate from ECG 89 NIBP 88/45 NIBP BP-Mean 61 Respiration from ECG 17 SpO2 100 I&O: 08/05/17 08/06/17 08/07/17 06:59 06:59 06:59 Intake Total 1950 1383 951 Output Total 1730 1342 1575 Balance 220 41 -624 Result Diagrams: 08/07/17 05:46 08/07/17 05:46 Additional Labs: Accuchecks 08/06/17 08/06/17 08/06/17 21:51 15:13 09:06 POC Glucose 144 H 149 H 147 H 08/06/17 08/05/17 03:53 23:58 POC Glucose 136 H 122 H EKG Reviewed by me: Yes (Tele SR) Phys Exam - Physical Examination Constitutional: NAD Respiratory: no wheezing, no rhonchi Cardiovascular: RRR, no rub Gastrointestinal: soft, non-tender, positive bowel sounds Musculoskeletal: no edema Neurological: moves all 4 limbs Dx/Plan (1) NSTEMI (non-ST elevated myocardial infarction) Code(s): I21.4 - NON-ST ELEVATION (NSTEMI) MYOCARDIAL INFARCTION Status: Acute (2) Multiple vessel coronary artery disease Code(s): I25.10 - ATHSCL HEART DISEASE OF [place] CORONARY ARTERY W/O ANG PCTRS Status: Acute Comment: s/p CABG (3) Diabetes type 2, controlled Code(s): E11.9 - TYPE 2 DIABETES MELLITUS WITHOUT COMPLICATIONS Status: Chronic Qualifiers: Chronic kidney disease stage: stage 2 (mild) (4) Dyslipidemia Code(s): E78.5 - HYPERLIPIDEMIA, UNSPECIFIED Status: Chronic (5) Hypertension Code(s): I10 - ESSENTIAL (PRIMARY) HYPERTENSION Status: Chronic (6) Obesity (BMI 30.0-34.9) Code(s): E66.9 - OBESITY, UNSPECIFIED Status: Chronic - Plan DVT proph w/SCDs Cont Meformin with sliding scale -: Cont current meds as below -: AM labs -: Cont post op care Review of Systems - Review of Systems Respiratory: negative: Cough, Dry, Shortness of Breath, Hemoptysis, SOB with Excertion, Pleuritic Pain, Sputum, Wheezing Cardiovascular: negative: chest pain, palpitations, orthopnea, paroxysmal nocturnal dyspnea, edema, light headedness, other - Medications/Allergies Allergies/Adverse Reactions: Allergies Allergy/AdvReac Type Severity Reaction Status Date / Time No Known Allergies Allergy Unverified 08/01/17 20:09 Medications: Current Medications Acetaminophen (Tylenol) 650 mg PO Q6H PRN PRN Reason: Headache/Fever Or Mild Pain Hydrocodone Bitart/Acetaminophen ([place] 5/325) 1 tab PO Q4H PRN PRN Reason: Moderate Pain (4-6) Hydrocodone Bitart/Acetaminophen ([place] 5/325) 2 tab PO Q4H PRN PRN Reason: Severe Pain (7-10) Last Admin: 08/06/17 19:21 Dose: 2 tab Al Hydroxide/Mg Hydroxide (Maalox) 30 ml PO Q4H PRN PRN Reason: Indigestion Albuterol/Ipratropium (Duoneb) 3 ml NEB [id number] [facility] Last Admin: 08/06/17 18:39 Dose: 3 ml Aspirin (Aspirin Chewable) 81 mg PO DAILY [facility] Last Admin: 08/06/17 12:48 Dose: 81 mg Atorvastatin Calcium (Lipitor) 40 mg PO HS [facility] Last Admin: 08/06/17 21:54 Dose: 40 mg Bisacodyl (Dulcolax) 10 mg PO Q12H PRN PRN Reason: Constipation Bisacodyl (Dulcolax) 10 mg [place] Q12H PRN PRN Reason: Constipation Dextrose/Water (Dextrose 50%) 25 gm SLOW IVP PRN PRN PRN Reason: PER HYPOGLYCEMIC PROTOCOL Famotidine (Pepcid) 20 mg SLOW IVP Q12HR [facility] Last Admin: 08/06/17 10:15 Dose: 20 mg Glucagon (Glucagon) 1 mg SC PRN PRN PRN Reason: PER HYPOGLYCEMIC PROTOCOL Guaifenesin/Dextromethorphan (Robitussin Dm) 15 ml PO Q4H PRN PRN Reason: Cough Hydralazine HCl (Apresoline) 10 mg SLOW IVP Q6H PRN PRN Reason: To Maintain SBP< 140mmHG Insulin Human Regular 100 (units/ Sodium Chloride) 101 mls @ 0 mls/hr IVPB INF ELO; As Directed PRN Reason: Protocol Last Admin: 08/04/17 16:03 Dose: 101 mls Dextrose/Water (D5w) 1,000 mls @ 0 mls/hr IV INF PRN; As Directed PRN Reason: PRN HYPOGLYCEMIC PROTOCOL Insulin Human Regular (Humulin R) 0 units SC Q4H PRN; Protocol PRN Reason: POST OP SLIDING SCALE Last Admin: 08/06/17 17:21 Dose: 3 unit Ketorolac Tromethamine (Toradol) 30 mg IVP Q6HR [facility] Stop: 08/08/17 12:01 Last Admin: 08/06/17 17:23 Dose: 30 mg Metformin HCl (Glucophage Xr) 500 mg PO QPM-WM [facility] Last Admin: 08/06/17 16:46 Dose: 500 mg Metformin HCl (Glucophage Xr) 1,000 mg PO QAM-[facility] Morphine Sulfate (Morphine) 2 mg SLOW IVP Q15MIN PRN PRN Reason: Severe Pain (7-10) Last Admin: 08/04/17 17:19 Dose: 2 mg Ondansetron HCl (Zofran) 4 mg IVP Q6H PRN PRN Reason: Nausea/Vomiting Pantoprazole Sodium (Protonix) 40 mg PO DAILY [facility] Potassium Chloride (Kcl) 20 meq IVPB PRN PRN PRN Reason: K level </= 4.0 Last Admin: 08/06/17 10:44 Dose: 20 meq Pregabalin (Lyrica) 100 mg PO QAM [facility] Last Admin: 08/06/17 15:47 Dose: 100 mg Promethazine HCl (Phenergan) 6.25 mg IM Q4H PRN PRN Reason: Nausea/Vomiting Sodium Chloride (Flush - Normal Saline) 10 ml IVF Q12HR [facility] Last Admin: 08/06/17 21:54 Dose: 10 ml Sodium Chloride (Flush - Normal Saline) 10 ml IVF PRN PRN PRN Reason: Saline Flush
[2017-08-07] MEDS: Ketorolac Tromethamine 30 MG/ML VIAL IVP SCH (05:22)
[2017-08-07] MEDS: Insulin Regular 300 UNITS/3 ML VIAL SC PRN (05:34)
[2017-08-07 06:01] LABS: #Eosinphils 0.7 thou/uL (0.0-0.7); #Lymphocytes 1.8 thou/uL (1.20-3.40); #Neutrophils 9.2 thou/uL (1.40-6.50); %Basophils 0.1 % (0.0-1.0); %Eosinophils 5.3 % (0.0-10.0); %Lymphocytes 14.2 % (21.0-51.0); %Monocytes 7.7 % (0.0-10.0); %Neutrophils 72.8 % (42.0-75.0); Mean Corpuscular HGB CONC 31.2 g/dL (32.0-36.0); Mean Corpuscular Hemoglobin 29.1 pg (27.0-31.0); Mean Corpuscular Volume 93.3 fl (81.0-99.0); Mean Platelet Volume 8.7 fL (7.4-10.4); Platelet Count 146 thou/uL (130-400); RBC Distribution Width 14.4 % (11.5-14.5); Red Blood Cell (RBC) Count 2.75 mill/uL (4.20-5.40); White Blood Cell (WBC) Count 12.6 thou/uL (4.8-10.8)
[2017-08-07 06:13] LABS: Anion Gap 9 mmol/L (10-20); BUN (Urea Nitrogen) 20 mg/dL (9.8-20.1); Calc. Creatinine Clearance 85 mL/min (70-130); Calcium 8.3 mg/dL (7.8-10.44); Carbon Dioxide 23 mmol/L (23-31); Chloride 109 mmol/L (98-107); Estimated GFR-MDRD 77; Glucose 153 mg/dL (80-115); Potassium 3.7 mmol/L (3.5-5.1); Sodium 137 mmol/L (136-145)
[2017-08-07] MEDS: Potassium Chloride 20 MEQ/100 ML PREMIX BAG IVPB PRN (06:30)
--- NOTE | 2017-08-07 07:42 | PRG ---
DATE OF SERVICE: 08/07/2017 The patient is doing well. I extubated her yesterday. She had no problems overnight except for some desaturation requiring slight bump up in her O2. PHYSICAL EXAMINATION: VITAL SIGNS: Temperature is 98.2, pulse 85, blood pressure 117/49. 24 hour intake 1151, output 1945 . HEENT: Unremarkable. NECK: No JVD. LUNGS: Diminished breath sounds in the bases. CARDIAC: S1 and S2 regular. ABDOMEN: Soft. EXTREMITIES: No edema. LABORATORY DATA: White blood cell count 12.6, hematocrit 25.6, platelet count 146. Sodium 137, pota ssium 3.7, chloride 109, CO2 23, BUN 20, creatinine 0.8, glucose 153. ASSESSMENT: 1. Status post coronary bypass grafting surgery. 2. Postoperative respiratory failure. 3. Underlying chronic obstructive pulmonary disease. 4. Obstructive sleep apnea. PLAN: She is moving out to the floor. Her physical activity will be increased. She will continue n ebulization treatments. Hopefully, we can hold off on starting her on steroids.
[2017-08-07] MEDS: metFORMIN XR 500 MG TAB PO SCH ×2 (07:57→17:18)
[2017-08-07] MEDS ORDERED: Iron Polysaccharides Complex 150 MG CAP PO SCH (08:00)
[2017-08-07] MEDS ORDERED: Insulin Regular 300 UNITS/3 ML VIAL SC PRN (08:20)
[2017-08-07] MEDS: Pregabalin 25 MG CAP PO SCH (08:49)
[2017-08-07] MEDS: HYDROcodone/Acetaminophen 5/325 mg Tablet PO PRN ×2 (08:57→14:23)
[2017-08-07] MEDS ORDERED: Pregabalin 50 MG CAP PO SCH (09:00)
--- NOTE | 2017-08-07 09:57 | PQF ---
CLINICAL DOCUMENTATION IMPROVEMENT CLARIFICATION FORM: ICD-10 Updated PLEASE DO AN ADDENDUM TO THE PROGRESS NOTE WITH ANY DOCUMENTATION UPDATES OR ADDITIONS AND CARRY THROUGH TO DC SUMMARY. THANK YOU. DATE: 08/07 ATTN : DR. VERONICA SALEEM Please exercise your independent, professional judgment in responding to the clarification form. Clinical indicators are provided on the bottom of this form for your review Please check appropriate box(s) to clarify if the following diagnosis has been ruled in or ruled out: SUSPECTED ACUTE SYSTOLIC CHF [ ] Ruled in diagnosis [ ] Continue to treat [ ] Resolved [ x ] Ruled out diagnosis [ ] Other diagnosis [ ] Unable to determine In addition, please specify: Present on Admission (POA): [ ] Yes [ ] No [ ] Unable to determine For continuity of documentation, please document condition throughout progress notes and discharge summary. Thank You. CLINICAL INDICATORS - SIGNS / SYMPTOMS / LABS ER PHYSICIAN DOCUMENTATION 08/01: NEW ONSET CHF PHYSICIAN H&P 08/01: CLINICAL IMPRESSION & PLAN: ADMIT TO TELEMETRY FOR NEW ONSET CHF CARDIOLOGY CONSULT 08/02: IMPRESSION: 2) PROBABLE HEART FAILURE W/INCREASED PERIPHERAL EDEMA ATTENDING PN 08/02 - : 2) ACUTE CHF, SUSPECTING SYSTOLIC NO FURTHER MENTION OF CHF TO DATE CXR 08/01: IMPRESSION: 1) FINDINGS SUGGESTING MODERATE CHF ECHO 08/03: EF 55-60%, MILD CONCENTRIC LVH RISK FACTORS: NSTEMI HTN DM II TREATMENTS: CARDIOLOGY CONSULT ECHO THANK YOU! Anna (This form is maintained as a part of the permanent medical record) 2014 [employer]. All Rights Reserved Anna Rondon RN, BSN [email or web address] Office: [phone] [facility] MEDICAL CENTERFrancoise
--- NOTE | 2017-08-07 18:38 | EKG ---
Test Reason : POST CABG Blood Pressure : / mmHG Vent. Rate : 096 BPM Atrial Rate : 096 BPM P-R Int : 156 ms QRS Dur : 076 ms QT Int : 398 ms P-R-T Axes : 030 059 088 degrees QTc Int : 502 ms Normal sinus rhythm Possible Inferior infarct , age undetermined Abnormal ECG When compared with ECG of 02-AUG-2017 08:56, Premature atrial complexes are no longer Present Borderline criteria for Inferior infarct are now Present ST elevation now present in Anterior leads Nonspecific T wave abnormality, improved in Anterolateral leads Confirmed by ANNE MARIE ANGLIN (2) on 08/07/2017 6:38:03 PM Referred By: LICO Confirmed By:ANNE MARIE ANGLIN
[2017-08-07] MEDS ORDERED: PROVENTIL INHALER 6.7 G (200 INHALATIONS) INH PRN (19:24)
[2017-08-07] MEDS ORDERED: Ipratropium Oral Inhaler (200 INHALATIONS) INH PRN (19:26)
[2017-08-07] MEDS ORDERED: Furosemide 40 MG/4 ML VIAL SLOW IVP SCH ×2 (19:30→23:45)
[2017-08-07] MEDS: Atorvastatin Calcium 40 MG TAB PO SCH (21:59)
--- NOTE | 2017-08-07 23:05 | PDOC.PN ---
- Subjective Encounter Start Date: 08/07/17 Encounter Start Time: 16:00 Patient seen and examined for NSTEMI. No new complaints. No CP. No overnight events - Objective Resuscitation Status: Resuscitation Status FULL:Full Resuscitation MAR Reviewed: Yes Vital Signs & Weight: Vital Signs (12 hours) Temp Pulse Resp BP Pulse Ox 08/07/17 15:49 97.5 F L 94 17 123/59 L 93 L 08/07/17 13:40 97.4 F L 100 18 127/58 L 95 Weight Admit Weight 188 lb 5 oz Weight 188 lb 7.924 oz Most Recent Monitor Data Heart Rate from ECG 83 NIBP 110/60 NIBP BP-Mean 83 Respiration from ECG 18 SpO2 91 I&O: 08/06/17 08/07/17 08/08/17 06:59 06:59 06:59 Intake Total 1383 1151 540 Output Total 1342 1995 95 Balance 41 -844 445 Result Diagrams: 08/07/17 05:46 08/07/17 05:46 Additional Labs: Accuchecks 08/07/17 08/07/17 08/07/17 20:57 17:12 12:09 POC Glucose 174 H 162 H 143 H 08/07/17 05:32 POC Glucose 148 H EKG Reviewed by me: Yes (Tele SR) Phys Exam - Physical Examination Constitutional: NAD Respiratory: no wheezing, no rhonchi Cardiovascular: RRR, no rub Gastrointestinal: soft, non-tender, positive bowel sounds Musculoskeletal: no edema Neurological: moves all 4 limbs Dx/Plan (1) NSTEMI (non-ST elevated myocardial infarction) Code(s): I21.4 - NON-ST ELEVATION (NSTEMI) MYOCARDIAL INFARCTION Status: Acute (2) Multiple vessel coronary artery disease Code(s): I25.10 - ATHSCL HEART DISEASE OF [place] CORONARY ARTERY W/O ANG PCTRS Status: Acute Comment: s/p CABG (3) Diabetes type 2, controlled Code(s): E11.9 - TYPE 2 DIABETES MELLITUS WITHOUT COMPLICATIONS Status: Chronic Qualifiers: Chronic kidney disease stage: stage 2 (mild) (4) Dyslipidemia Code(s): E78.5 - HYPERLIPIDEMIA, UNSPECIFIED Status: Chronic (5) Hypertension Code(s): I10 - ESSENTIAL (PRIMARY) HYPERTENSION Status: Chronic (6) Obesity (BMI 30.0-34.9) Code(s): E66.9 - OBESITY, UNSPECIFIED Status: Chronic - Plan DVT proph w/SCDs Cont post op care/ Cardiac rehab -: Cont ASA, Beta blockers on hold due to BP on lower side -: Cont current meds as below -: Cont moderate sliding scale Review of Systems - Review of Systems Respiratory: negative: Cough, Dry, Shortness of Breath, Hemoptysis, SOB with Excertion, Pleuritic Pain, Sputum, Wheezing Cardiovascular: negative: chest pain, palpitations, orthopnea, paroxysmal nocturnal dyspnea, edema, light headedness, other - Medications/Allergies Allergies/Adverse Reactions: Allergies Allergy/AdvReac Type Severity Reaction Status Date / Time No Known Allergies Allergy Unverified 08/01/17 20:09 Medications: Current Medications Hydrocodone Bitart/Acetaminophen ([place] 5/325) 1 tab PO Q4H PRN PRN Reason: Moderate Pain (4-6) Hydrocodone Bitart/Acetaminophen ([place] 5/325) 2 tab PO Q4H PRN PRN Reason: Severe Pain (7-10) Last Admin: 08/07/17 14:23 Dose: 2 tab Al Hydroxide/Mg Hydroxide (Maalox) 30 ml PO Q4H PRN PRN Reason: Indigestion Albuterol Sulfate (Ventolin) 2.5 mg NEB Q6H PRN PRN Reason: Dyspnea/Wheezing/SOB Aspirin (Aspirin Chewable) 81 mg PO DAILY [facility] Atorvastatin Calcium (Lipitor) 40 mg PO HS [facility] Last Admin: 08/07/17 21:59 Dose: 40 mg Bisacodyl (Dulcolax) 10 mg PO Q12H PRN PRN Reason: Constipation Bisacodyl (Dulcolax) 10 mg [place] Q12H PRN PRN Reason: Constipation Dextrose/Water (Dextrose 50%) 25 gm SLOW IVP PRN PRN PRN Reason: PER HYPOGLYCEMIC PROTOCOL Glucagon (Glucagon) 1 mg SC PRN PRN PRN Reason: PER HYPOGLYCEMIC PROTOCOL Guaifenesin/Dextromethorphan (Robitussin Dm) 15 ml PO Q4H PRN PRN Reason: Cough Dextrose/Water (D5w) 1,000 mls @ 0 mls/hr IV INF PRN; As Directed PRN Reason: PRN HYPOGLYCEMIC PROTOCOL Insulin Human Regular (Humulin R) 0 units SC .MODERATE SLIDING SC PRN; Protocol PRN Reason: MODERATE SLIDING SCALE Ipratropium [place] (Atrovent Hfa) 1 puff INH Q6H PRN PRN Reason: SOB &/or Wheezing Metformin HCl (Glucophage Xr) 500 mg PO QPM-[facility] Last Admin: 08/07/17 17:18 Dose: 500 mg Metformin HCl (Glucophage Xr) 1,000 mg PO QAM-[facility] Last Admin: 08/07/17 07:57 Dose: 1,000 mg Ondansetron HCl (Zofran) 4 mg IVP Q6H PRN PRN Reason: Nausea/Vomiting Pantoprazole Sodium (Protonix) 40 mg PO DAILY [facility] Last Admin: 08/07/17 07:58 Dose: 40 mg Pregabalin (Lyrica) [facility] [place] Last Admin: 08/07/17 08:49 Dose: 100 mg Sodium Chloride (Flush - Normal Saline) 10 ml IVF PRN PRN PRN Reason: Saline Flush
--- NOTE | 2017-08-07 23:46 | RAD ---
PORTABLE CHEST: Date: 08/07/17 PROVIDED CLINICAL HISTORY: Low O2 saturation. FINDINGS: Comparison made with the study performed 08/06/17. Cardiac and mediastinal silhouette is unchanged in appearance. Interval extubation. Right-sided centr al line persists. Development of diffuse patchy bilateral air space disease primarily involving mid t o lower lung zones. Increase in left basilar pleural and/or parenchymal opacity. No evidence for pneu mothorax. IMPRESSION: Development of bilateral air space disease and increased left basilar pleural parenchymal opacity. POS: PATRICIA
[2017-08-08 00:01] LABS: CO2 Tension 31.2 mmHg (35.0-45.0); O2 Tension (PaO2) 46.8 mmHg (80.0-100.0)
[2017-08-08 00:02] LABS: Hematocrit-ABG 28.1 % (36.0-47.0); Hemoglobin (Hb) 8.6 g/dL (12.0-16.0)
[2017-08-08 00:03] LABS: Analyzer IN Cardio OR; Calcium, Ionized 1.2 mmol/L (1.12-1.30); Puncture Site R RADIAL
[2017-08-08] MEDS ORDERED: Metolazone 5 MG TAB PO SCH (07:00)
--- NOTE | 2017-08-08 07:29 | RAD ---
UPRIGHT PORTABLE CHEST 1 VIEW: Date: 08/08/17 HISTORY: 66-year-old female with history of hypoxia. COMPARISON: 08/07/17. FINDINGS: Again noted are extensive patchy interstitial and linear and alveolar opacity changes throughout both lungs. This is somewhat more confluent in the right mid lung zone. Right subclavian catheter in plac e. IMPRESSION: Persistent bilateral interstitial and alveolar opacities throughout both lungs with some confluence i n the right mid lung zone. Continue short-term follow-up for clearing or stability. POS: OFF
[2017-08-08 08:46] LABS: Anion Gap 9 mmol/L (10-20); BUN (Urea Nitrogen) 18 mg/dL (9.8-20.1); Calc. Creatinine Clearance 83 mL/min (70-130); Calcium 8.8 mg/dL (7.8-10.44); Carbon Dioxide 26 mmol/L (23-31); Chloride 108 mmol/L (98-107); Estimated GFR-MDRD 73; Glucose 144 mg/dL (80-115); Sodium 139 mmol/L (136-145)
[2017-08-08] MEDS: metFORMIN XR 500 MG TAB PO SCH ×2 (08:52→17:30)
--- NOTE | 2017-08-08 09:00 | PRG ---
DATE OF SERVICE: 08/08/2017 From what I can gather, the patient experienced hypoxemia last night while on [address] An ABG was dr coley showing hypoxemia. She was brought back to the [facility]. She was placed on BiPAP and did relatively well overnight. This morning, she had no new complaints. PHYSICAL EXAMINATION: VITAL SIGNS: Temperature is 99.9, pulse 96, respiratory rate 20-30s, O2 saturation in the mid to hig h 90s on the BiPAP. HEENT: Unremarkable. NECK: No adenopathy or JVD. LUNGS: She has crackles in the bases. CARDIAC: S1 and S2 regular. ABDOMEN: Soft, nontender. EXTREMITIES: Trace edema. LABORATORY DATA: There are no new labs from this morning, just the ABG from last night showing the h ypoxemia. A chest x-ray demonstrated fairly profound fluid overload last night. There appears to be some clear ing in the left base today. ASSESSMENT: 1. Pulmonary edema. 2. Acute hypoxic respiratory failure. 3. Status post coronary bypass grafting surgery with prolonged time on the ventilator due to hypoxem ia and tachypnea. 4. Underlying chronic obstructive pulmonary disease. PLAN: I would like to recheck her labs, see where we are in terms of potassium and her renal functio n. She may need to be diuresed more depending on results of her laboratory testing. I would like to try her off the BiPAP and see how she does.
[2017-08-08] MEDS: Pregabalin 25 MG CAP PO SCH (09:38)
[2017-08-08] MEDS: Furosemide 40 MG/4 ML VIAL SLOW IVP SCH (13:52)
--- NOTE | 2017-08-08 15:15 | PDOC.PN ---
- Subjective Encounter Start Date: 08/08/17 Encounter Start Time: 15:13 Subjective: having trouble breathing off of Bipap,so restarted on it - Objective Resuscitation Status: Resuscitation Status FULL:Full Resuscitation MAR Reviewed: Yes Vital Signs & Weight: Vital Signs (12 hours) Temp Pulse Resp BP Pulse Ox 08/08/17 15:02 98 36 H 95 08/08/17 11:39 98.7 F 96 25 H 104/59 L 95 08/08/17 09:30 97 24 H 93 L 08/08/17 08:00 99.9 F H 96 33 H 92 L 08/08/17 07:38 99.9 F H 96 33 H 110/61 95 08/08/17 03:55 97.0 F L 98 35 H 116/60 99 Weight Admit Weight 188 lb 5 oz Weight 191 lb 9 oz Most Recent Monitor Data Heart Rate from ECG 83 NIBP 110/60 NIBP BP-Mean 83 Respiration from ECG 18 SpO2 91 I&O: 08/07/17 08/08/17 08/09/17 06:59 06:59 06:59 Intake Total 1151 540 120 Output Total 1994 1295 [facility] -844 -755 120 Result Diagrams: 08/07/17 05:46 08/08/17 08:19 Additional Labs: Accuchecks 08/08/17 08/08/17 08/07/17 10:20 05:37 20:57 POC Glucose 156 H 122 H 174 H 08/07/17 17:12 POC Glucose 162 H Microbiology 08/01/17 16:02 Venous blood - Left Hand Blood Culture - Final NO GROWTH IN 5 DAYS 08/01/17 15:55 Venous blood - Right Hand Blood Culture - Final NO GROWTH IN 5 DAYS Laboratory Tests 08/01/17 08/03/17 08/05/17 15:20 05:06 04:17 Hgb 11.4 L 11.5 L 9.9 L 08/06/17 08/07/17 03:55 05:46 Hgb 8.3 L 8.0 L Radiology Reviewed by me: Yes (CXR-b/l edema) Phys Exam - Physical Examination mild resp distress w/o Bipap HEENT: PERRLA, moist MMs, sclera anicteric, oral pharynx no lesions Neck: no nodes, no JVD, supple, full ROM Respiratory: no wheezing, no rhonchi, clear to auscultation bilateral bibasilar crackles Cardiovascular: RRR, no significant murmur, no rub Gastrointestinal: soft, non-tender, no distention, positive bowel sounds Musculoskeletal: no edema, pulses present Neurological: non-focal, normal sensation, moves all 4 limbs Psychiatric: normal affect, A&O x 3 Skin: no rash Dx/Plan (1) Acute respiratory failure with hypoxia Code(s): J96.01 - ACUTE RESPIRATORY FAILURE WITH HYPOXIA Status: Acute Comment: Transferred to CCU last night.foreign due to worsening flash pulmonary edema (2) Acute CHF Code(s): I50.9 - HEART FAILURE, UNSPECIFIED Status: Acute Qualifiers: Heart failure type: unspecified Qualified Code(s): I50.9 - Heart failure, unspecified Comment: suspecting systolic (3) Multiple vessel coronary artery disease Code(s): I25.10 - ATHSCL HEART DISEASE OF [place] CORONARY ARTERY W/O ANG PCTRS Status: Acute Comment: s/p CABG (4) NSTEMI (non-ST elevated myocardial infarction) Code(s): I21.4 - NON-ST ELEVATION (NSTEMI) MYOCARDIAL INFARCTION Status: Acute (5) Diabetes type 2, controlled Code(s): E11.9 - TYPE 2 DIABETES MELLITUS WITHOUT COMPLICATIONS Status: Chronic Qualifiers: Chronic kidney disease stage: stage 2 (mild) (6) Dyslipidemia Code(s): E78.5 - HYPERLIPIDEMIA, UNSPECIFIED Status: Chronic (7) GERD (gastroesophageal reflux disease) Code(s): K21.9 - GASTRO-ESOPHAGEAL REFLUX DISEASE WITHOUT ESOPHAGITIS Status: Chronic (8) Gout Code(s): M10.9 - GOUT, UNSPECIFIED Status: Chronic (9) Hypertension Code(s): I10 - ESSENTIAL (PRIMARY) HYPERTENSION Status: Chronic (10) Moderate mitral regurgitation Code(s): I34.0 - NONRHEUMATIC MITRAL (VALVE) INSUFFICIENCY Status: Chronic (11) Moderate pulmonary valve insufficiency Code(s): I37.1 - NONRHEUMATIC PULMONARY VALVE INSUFFICIENCY Status: Chronic (12) Obesity (BMI 30.0-34.9) Code(s): E66.9 - OBESITY, UNSPECIFIED Status: Chronic (13) PAD (peripheral artery disease) Code(s): I73.9 - PERIPHERAL VASCULAR DISEASE, UNSPECIFIED Status: Chronic (14) Tobacco abuse Code(s): Z72.0 - TOBACCO USE Status: Chronic - Plan PT/OT, respiratory therapy, incentive spirometry, DVT proph w/SCDs aggressive diuresis.IV lasix and 1 dose zaroxolyn. -: PCCM and cardiology following.continue monitoring in CCu on Bipap -: strict I/Os. -: cont ASA,statin .BB on hold for low BP/HR.monitor. -: am labs. * . Review of Systems - Review of Systems Constitutional: weakness, malaise. negative: fever, chills, sweats, other Respiratory: Shortness of Breath, SOB with Excertion Cardiovascular: negative: chest pain, palpitations, orthopnea, paroxysmal nocturnal dyspnea, edema, light headedness, other Gastrointestinal: negative: Nausea, Vomiting, Abdominal Pain, Diarrhea, Constipation, Melena, Hematochezia, Other Genitourinary: negative: Dysuria, Frequency, Incontinence, Hematuria, Retention , Other Musculoskeletal: negative: Neck Pain, Shoulder Pain, Arm Pain, Back Pain, Hand Pain, Leg Pain, Foot Pain, Other Skin: negative: Rash, Lesions, C[place], Bruising, Other - Medications/Allergies Allergies/Adverse Reactions: Allergies Allergy/AdvReac Type Severity Reaction Status Date / Time No Known Allergies Allergy Unverified 08/01/17 20:09 Medications: Current Medications Hydrocodone Bitart/Acetaminophen ([place] 5/325) 1 tab PO Q4H PRN PRN Reason: Moderate Pain (4-6) Hydrocodone Bitart/Acetaminophen ([place] 5/325) 2 tab PO Q4H PRN PRN Reason: Severe Pain (7-10) Last Admin: 08/07/17 14:23 Dose: 2 tab Al Hydroxide/Mg Hydroxide (Maalox) 30 ml PO Q4H PRN PRN Reason: Indigestion Albuterol Sulfate (Ventolin) 2.5 mg NEB Q6H PRN PRN Reason: Dyspnea/Wheezing/SOB Aspirin (Aspirin Chewable) 81 mg PO DAILY [facility] Last Admin: 08/08/17 08:52 Dose: 81 mg Atorvastatin Calcium (Lipitor) 40 mg PO HS [facility] Last Admin: 08/07/17 21:59 Dose: 40 mg Bisacodyl (Dulcolax) 10 mg PO Q12H PRN PRN Reason: Constipation Bisacodyl (Dulcolax) [address] Q12H PRN PRN Reason: Constipation Dextrose/Water (Dextrose 50%) 25 gm SLOW IVP PRN PRN PRN Reason: PER HYPOGLYCEMIC PROTOCOL Furosemide (Lasix) 40 mg SLOW IVP 0600,1400 [facility] Stop: 08/09/17 06:01 Last Admin: 08/08/17 13:52 Dose: 40 mg Glucagon (Glucagon) 1 mg [place] PRN PRN PRN Reason: PER HYPOGLYCEMIC PROTOCOL Guaifenesin/Dextromethorphan (Robitussin Dm) 15 ml PO Q4H PRN PRN Reason: Cough Dextrose/Water (D5w) 1,000 mls @ 0 mls/hr IV INF PRN; As Directed PRN Reason: PRN HYPOGLYCEMIC PROTOCOL Insulin Human Regular (Humulin R) 0 units [place] .MODERATE SLIDING SC PRN; Protocol PRN Reason: MODERATE SLIDING SCALE Ipratropium [place] (Atrovent Hfa) 1 puff INH Q6H PRN PRN Reason: SOB &/or Wheezing Metformin HCl (Glucophage Xr) 500 mg PO QPM-WM [facility] Last Admin: 08/07/17 17:18 Dose: 500 mg Metformin HCl (Glucophage Xr) 1,000 mg PO QAM-[facility] Last Admin: 08/08/17 08:52 Dose: 1,000 mg Ondansetron HCl (Zofran) 4 mg IVP Q6H PRN PRN Reason: Nausea/Vomiting Pantoprazole Sodium (Protonix) 40 mg PO DAILY [facility] Last Admin: 08/08/17 08:52 Dose: 40 mg Pregabalin (Lyrica) 100 mg PO QAM [facility] Last Admin: 08/08/17 09:38 Dose: 100 mg Sodium Chloride (Flush - Normal Saline) 10 ml IVF PRN PRN PRN Reason: Saline Flush
[2017-08-08] MEDS: Atorvastatin Calcium 40 MG TAB PO SCH (20:40)
[2017-08-08] MEDS: HYDROcodone/Acetaminophen 5/325 mg Tablet PO PRN (22:27)
[2017-08-09] MEDS: Furosemide 40 MG/4 ML VIAL SLOW IVP SCH ×3 (05:21→15:21)
[2017-08-09 06:10] LABS: Anion Gap 12 mmol/L (10-20); BUN (Urea Nitrogen) 19 mg/dL (9.8-20.1); Calc. Creatinine Clearance 76 mL/min (70-130); Calcium 9.1 mg/dL (7.8-10.44); Carbon Dioxide 28 mmol/L (23-31); Chloride 102 mmol/L (98-107); Estimated GFR-MDRD 69; Glucose 111 mg/dL (80-115); Potassium 3.4 mmol/L (3.5-5.1); Sodium 139 mmol/L (136-145)
[2017-08-09] MEDS ORDERED: Metolazone 5 MG TAB PO SCH (06:45)
[2017-08-09 07:12] LABS: Actual Bicarbonate (HCO3a) 25.1 mEq/L (22-26); CO2 Tension 37.7 mmHg (35.0-45.0); Hematocrit-ABG 34.2 % (36.0-47.0); O2 Tension (PaO2) 97.7 mmHg (80.0-100.0); pH, Arterial 7.44 (7.35-7.45)
[2017-08-09 07:13] LABS: Actual Bicarbonate (HCO3a) 21.5 mEq/L (22-26); Base Excess (BEa) -3.8 mEq/L (0 (+/-) 2.5); CO2 Tension 40.1 mmHg (35.0-45.0); O2 Tension (PaO2) 417.1 mmHg (80.0-100.0); pH, Arterial 7.35 (7.35-7.45)
[2017-08-09 07:13] LABS: Analyzer IN Cardio OR; Calcium, Ionized 1.2 mmol/L (1.12-1.30); Puncture Site ALINE
[2017-08-09 07:14] LABS: Analyzer IN Cardio OR; Hematocrit-ABG 19.8 % (36.0-47.0); Hemoglobin (Hb) 6.1 g/dL (12.0-16.0); Puncture Site ALINE
[2017-08-09 07:15] LABS: Actual Bicarbonate (HCO3v) 23 mEq/L (22-26); Analyzer IN Cardio OR; Base Excess -3.3 mEq/L (0 (+/- 2.5)); Calcium, Ionized 0.99 mmol/L (1.16-1.32); Chloride (ABG LAB) 104 mmol/L (98-106); Hematocrit-VBG 24.1 % (35-47); Hemoglobin (Hb) 7.6 g/dL (11.7-16.1); Potassium - ABG Lab 4.3 mmol/L (3.70-5.30); Sodium 138.7 mmol/L (133-146); pH (venous) 7.29 (7.35-7.45)
[2017-08-09 07:16] LABS: Analyzer IN Cardio OR; Base Excess (BEa) -3.4 mEq/L (0 (+/-) 2.5); CO2 Tension 41.6 mmHg (35.0-45.0); Calcium, Ionized 1.4 mmol/L (1.12-1.30); Hematocrit-ABG 24.6 % (36.0-47.0); Hemoglobin (Hb) 7.9 g/dL (12.0-16.0); O2 Tension (PaO2) 477.3 mmHg (80.0-100.0); Puncture Site ALINE; pH, Arterial 7.34 (7.35-7.45)
[2017-08-09 07:17] LABS: Actual Bicarbonate (HCO3a) 19.5 mEq/L (22-26); Base Excess (BEa) -6.2 mEq/L (0 (+/-) 2.5); CO2 Tension 39.2 mmHg (35.0-45.0); O2 Tension (PaO2) 90.9 mmHg (80.0-100.0); pH, Arterial 7.32 (7.35-7.45)
[2017-08-09 07:18] LABS: Analyzer IN Cardio OR; Calcium, Ionized 1.2 mmol/L (1.12-1.30); Hematocrit-ABG 30.9 % (36.0-47.0); Hemoglobin (Hb) 9.8 g/dL (12.0-16.0); Puncture Site ALINE
--- NOTE | 2017-08-09 07:39 | PDOC.PULPN ---
Progress Note: Subj/Obj - Subjective Date: 08/09/17 Time: 07:37 Narrative: slept on bipap last night. overall feels somewhat better - Objective Allergies/Adverse Reactions: Allergies Allergy/AdvReac Type Severity Reaction Status Date / Time No Known Allergies Allergy Unverified 08/01/17 20:09 MAR Reviewed: Yes Vital Signs: Vital Signs Temp 99.0 F 08/09/17 07:29 Pulse 93 08/09/17 07:29 Resp 14 08/09/17 07:29 BP 99/68 08/09/17 07:29 Pulse Ox 99 08/09/17 07:29 Intake & Output 08/08/17 08/09/17 08/09/17 18:59 06:59 18:59 Intake Total 240 420 Output Total 1450 1050 Balance -1210 -630 Weight 191 lb 9 oz 186 lb 8 oz Intake: Intake, IV Amount 20 Oral 240 400 Output: Output, Pena 1450 1050 Other: Voiding Method Indwelling Catheter Indwelling Catheter Progress Note: Exam - Physical Exam Constitutional: NAD HEENT: PERRLA, moist MMs Neck: no nodes Cardiovascular: RRR Respiratory: clear to auscultation anteriorly Deviation from normal: using bipap most of the time, but improving o2 sats Gastrointestinal: soft, non-tender Musculoskeletal: edema present Neurological: non-focal, normal sensation Lymphatic: no nodes Psychiatric: normal affect, A&O x 3 Skin: no rash Progress Note: Data - Labs Result Diagrams: 08/07/17 05:46 08/09/17 05:20 Progress Note: A/P - Plan Plan: Assessment: Pulmonary edema Post CABG CXR with bilateral edema L>R She seems to be responding to the aggressive diuresis. She has had an improvement in O2 sats overnight Plan: Continue diuresis Try to decrease BiPAP use, and hopefully wean to nasal cannula most of the time marky K
--- NOTE | 2017-08-09 08:48 | RAD ---
PORTABLE AP CHEST XRAY: DATE: 08/09/17. HISTORY: Edema. COMPARISON: 08/08/17. FINDINGS: A right subclavian central venous catheter remains in place and unchanged in position. Postsurgical changes related to CABG are noted. Multiple teletypesetter monitor leads again overlie the chest. The inte rstitial opacities within the lungs bilaterally are again seen, although the interstitial densities w ithin the right mid lung zone do appear mildly improved. Cardiac silhouette remains enlarged. Vascu lar calcification in the thoracic aorta. IMPRESSION: Persistent increased interstitial and alveolar opacities within the lungs bilaterally with mild impro vement in interstitial densities within the right mid lung zone. Findings may be related to infectio us process, and continued followup to complete resolution is recommended. POS: [facility]
[2017-08-09] MEDS: Potassium Chloride 20 MEQ TAB PO SCH ×2 (10:34→16:30)
[2017-08-09] MEDS: metFORMIN XR 500 MG TAB PO SCH ×2 (10:34→16:32)
[2017-08-09] MEDS: Pregabalin 25 MG CAP PO SCH (10:34)
[2017-08-09] MEDS: HYDROcodone/Acetaminophen 5/325 mg Tablet PO PRN ×3 (12:14→20:43)
--- NOTE | 2017-08-09 15:02 | PDOC.PN ---
- Subjective Encounter Start Date: 08/09/17 Encounter Start Time: 15:01 Subjective: feels much better. improved breathing -: wants to go home -: no chest pain - Objective Resuscitation Status: Resuscitation Status FULL:Full Resuscitation MAR Reviewed: Yes Vital Signs & Weight: Vital Signs (12 hours) Temp Pulse Resp BP Pulse Ox 08/09/17 11:11 99.2 F 95 13 91/56 L 93 L 08/09/17 08:06 99.0 F 93 20 99 08/09/17 07:50 99 08/09/17 07:29 99.0 F 93 14 99/68 99 Weight Admit Weight 188 lb 5 oz Weight 186 lb 8 oz Most Recent Monitor Data Heart Rate from ECG 83 NIBP 110/60 NIBP BP-Mean 83 Respiration from ECG 18 SpO2 91 I&O: 08/08/17 08/09/17 08/10/17 06:59 06:59 06:59 Intake Total 540 660 Output Total 1295 2500 Balance -437 -4556 Result Diagrams: 08/07/17 05:46 08/09/17 05:20 Additional Labs: Accuchecks 08/09/17 08/09/17 08/08/17 12:13 05:34 20:42 POC Glucose 128 H 113 H 131 H 08/08/17 16:45 POC Glucose 128 H Microbiology 08/01/17 16:02 Venous blood - Left Hand Blood Culture - Final NO GROWTH IN 5 DAYS 08/01/17 15:55 Venous blood - Right Hand Blood Culture - Final NO GROWTH IN 5 DAYS Phys Exam - Physical Examination Constitutional: NAD HEENT: PERRLA, moist MMs, sclera anicteric, oral pharynx no lesions Neck: no nodes, no JVD, supple, full ROM Respiratory: no wheezing, clear to auscultation bilateral Cardiovascular: RRR, no significant murmur, no rub Gastrointestinal: soft, non-tender, no distention, positive bowel sounds Musculoskeletal: pulses present, edema present Neurological: non-focal, normal sensation, moves all 4 limbs Psychiatric: normal affect, A&O x 3 Skin: no rash Dx/Plan (1) Acute respiratory failure with hypoxia Code(s): J96.01 - ACUTE RESPIRATORY FAILURE WITH HYPOXIA Status: Acute Comment: improving.used Bipap last night as well,now off (2) Acute CHF Code(s): I50.9 - HEART FAILURE, UNSPECIFIED Status: Acute Qualifiers: Heart failure type: unspecified Qualified Code(s): I50.9 - Heart failure, unspecified Comment: suspecting systolic (3) Multiple vessel coronary artery disease Code(s): I25.10 - ATHSCL HEART DISEASE OF [place] CORONARY ARTERY W/O ANG PCTRS Status: Acute Comment: s/p CABG (4) NSTEMI (non-ST elevated myocardial infarction) Code(s): I21.4 - NON-ST ELEVATION (NSTEMI) MYOCARDIAL INFARCTION Status: Acute (5) Diabetes type 2, controlled Code(s): E11.9 - TYPE 2 DIABETES MELLITUS WITHOUT COMPLICATIONS Status: Chronic Qualifiers: Chronic kidney disease stage: stage 2 (mild) (6) Dyslipidemia Code(s): E78.5 - HYPERLIPIDEMIA, UNSPECIFIED Status: Chronic (7) GERD (gastroesophageal reflux disease) Code(s): K21.9 - GASTRO-ESOPHAGEAL REFLUX DISEASE WITHOUT ESOPHAGITIS Status: Chronic (8) Gout Code(s): M10.9 - GOUT, UNSPECIFIED Status: Chronic (9) Hypertension Code(s): I10 - ESSENTIAL (PRIMARY) HYPERTENSION Status: Chronic (10) Moderate mitral regurgitation Code(s): I34.0 - NONRHEUMATIC MITRAL (VALVE) INSUFFICIENCY Status: Chronic (11) Moderate pulmonary valve insufficiency Code(s): I37.1 - NONRHEUMATIC PULMONARY VALVE INSUFFICIENCY Status: Chronic (12) Obesity (BMI 30.0-34.9) Code(s): E66.9 - OBESITY, UNSPECIFIED Status: Chronic (13) PAD (peripheral artery disease) Code(s): I73.9 - PERIPHERAL VASCULAR DISEASE, UNSPECIFIED Status: Chronic (14) Tobacco abuse Code(s): Z72.0 - TOBACCO USE Status: Chronic - Plan PT/OT, respiratory therapy, incentive spirometry, DVT proph w/SCDs cont aggressive diuresis.IV lasix and zaroxolyn -: strict I/Os. -: Bipap prn. -: OT,PT,CR.Encourgae OOB & PO intake -: Meds as below * .am labs Review of Systems - Review of Systems Constitutional: weakness. negative: fever, chills, sweats, malaise, other Respiratory: SOB with Excertion. negative: Cough, Dry, Shortness of Breath, Hemoptysis, Pleuritic Pain, Sputum, Wheezing Cardiovascular: negative: chest pain, palpitations, orthopnea, paroxysmal nocturnal dyspnea, edema, light headedness, other Gastrointestinal: negative: Nausea, Vomiting, Abdominal Pain, Diarrhea, Constipation, Melena, Hematochezia, Other Genitourinary: negative: Dysuria, Frequency, Incontinence, Hematuria, Retention , Other Musculoskeletal: negative: Neck Pain, Shoulder Pain, Arm Pain, Back Pain, Hand Pain, Leg Pain, Foot Pain, Other Skin: negative: Rash, Lesions, C[place], Bruising, Other Neurological: negative: Weakness, Numbness, Incoordination, Change in Speech, Confusion, Seizures, Other - Medications/Allergies Allergies/Adverse Reactions: Allergies Allergy/AdvReac Type Severity Reaction Status Date / Time No Known Allergies Allergy Unverified 08/01/17 20:09 Medications: Current Medications Hydrocodone Bitart/Acetaminophen ([place] 5/325) 1 tab PO Q4H PRN PRN Reason: Moderate Pain (4-6) Last Admin: 08/09/17 12:14 Dose: 1 tab Hydrocodone Bitart/Acetaminophen ([place] 5/325) 2 tab PO Q4H PRN PRN Reason: Severe Pain (7-10) Last Admin: 08/07/17 14:23 Dose: 2 tab Al Hydroxide/Mg Hydroxide (Maalox) 30 ml PO Q4H PRN PRN Reason: Indigestion Albuterol Sulfate (Ventolin) 2.5 mg NEB Q6H PRN PRN Reason: Dyspnea/Wheezing/SOB Aspirin (Aspirin Chewable) 81 mg PO DAILY [facility] Last Admin: 08/09/17 10:34 Dose: 81 mg Atorvastatin Calcium (Lipitor) 40 mg PO HS [facility] Last Admin: 08/08/17 20:40 Dose: 40 mg Bisacodyl (Dulcolax) 10 mg PO Q12H PRN PRN Reason: Constipation Bisacodyl (Dulcolax) 10 mg ND Q12H PRN PRN Reason: Constipation Dextrose/Water (Dextrose 50%) 25 gm SLOW IVP PRN PRN PRN Reason: PER HYPOGLYCEMIC PROTOCOL Glucagon (Glucagon) 1 mg SC PRN PRN PRN Reason: PER HYPOGLYCEMIC PROTOCOL Guaifenesin/Dextromethorphan (Robitussin Dm) 15 ml PO Q4H PRN PRN Reason: Cough Dextrose/Water (D5w) 1,000 mls @ 0 mls/hr IV INF PRN; As Directed PRN Reason: PRN HYPOGLYCEMIC PROTOCOL Insulin Human Regular (Humulin R) 0 units SC .MODERATE SLIDING SC PRN; Protocol PRN Reason: MODERATE SLIDING SCALE Ipratropium [place] (Atrovent Hfa) 1 puff INH Q6H PRN PRN Reason: SOB &/or Wheezing Metformin HCl (Glucophage Xr) 500 mg PO QPM-[facility] Last Admin: 08/08/17 17:30 Dose: 500 mg Metformin HCl (Glucophage Xr) 1,000 mg PO QAM-[facility] Last Admin: 08/09/17 10:34 Dose: 1,000 mg Ondansetron HCl (Zofran) 4 mg IVP Q6H PRN PRN Reason: Nausea/Vomiting Pantoprazole Sodium (Protonix) 40 mg PO DAILY [facility] Last Admin: 08/09/17 10:34 Dose: 40 mg Potassium Chloride (K-Dur) 40 meq PO BID-[facility] Stop: 08/09/17 17:01 Last Admin: 08/09/17 10:34 Dose: 40 meq Pregabalin (Lyrica) 100 [facility] [place] Last Admin: 08/09/17 10:34 Dose: 100 mg Sodium Chloride (Flush - Normal Saline) 10 ml IVF PRN PRN PRN Reason: Saline Flush Last Admin: 08/08/17 20:40 Dose: 10 ml
[2017-08-09] MEDS: Atorvastatin Calcium 40 MG TAB PO SCH (20:42)
[2017-08-10 04:03] LABS: Anion Gap 14 mmol/L (10-20); BUN (Urea Nitrogen) 28 mg/dL (9.8-20.1); Calc. Creatinine Clearance 62 mL/min (70-130); Calcium 9.8 mg/dL (7.8-10.44); Carbon Dioxide 28 mmol/L (23-31); Chloride 101 mmol/L (98-107); Estimated GFR-MDRD 54; Glucose 140 mg/dL (80-115); Potassium 4.2 mmol/L (3.5-5.1); Sodium 139 mmol/L (136-145)
--- NOTE | 2017-08-10 09:32 | RAD ---
ONE VIEW CHEST: History: Edema. Comparison: 08-09-17 FINDINGS: Stable right sided central venous catheter. Evaluation of the mediastinum and heart is limited due to significant leftward rotation. There appear to be worsening pleural and parenchymal change of the le ft hemithorax. Stable opacities at the right lung base. No obvious pneumothorax. Chronic changes in t he proximal right humerus. IMPRESSION: Worsening opacification left hemithorax. POS: [facility]
[2017-08-10] MEDS: Pregabalin 25 MG CAP PO SCH (10:01)
[2017-08-10] MEDS: metFORMIN XR 500 MG TAB PO SCH (10:02)
[2017-08-10] MEDS: HYDROcodone/Acetaminophen 5/325 mg Tablet PO PRN ×3 (10:02→22:11)
--- NOTE | 2017-08-10 10:20 | CT ---
CT OF THE THORAX WITH IV CONTRAST: Date: 08/10/17 INDICATION: Left chest opacification status post CABG. FINDINGS: There is a tiny right and small left pleural effusion. There is atelectasis involving both lower lobe s, left greater than right. There are areas of subsegmental volume loss involving the left lung. Ther e is a loculated component of pleural effusion involving the anterior left hemithorax. There is scatt ered emphysema. There is post CABG change. A small pericardial effusion is present. A small amount of fluid is seen undermining the sternotomy site, likely postoperative in nature. There is fatty infilt ration of the liver. There is moderate to severe narrowing involving the proximal left subclavian art [place] on image 10 of series 2. No acute osseous abnormality is evident. IMPRESSION: 1. Mildly complicated left-sided pleural effusion with scattered subsegmental volume loss. 2. Tiny right pleural effusion. 3. Small pericardial effusion and small amount of fluid in the anterior mediastinum likely postopera tive in nature. 4. Emphysema. 5. Fatty liver. 6. Moderate to severe narrowing involving the proximal left subclavian artery. POS: [facility]
[2017-08-10] MEDS ORDERED: ISOVUE-370 76%-LOCM 1 ML ONE (10:59)
--- NOTE | 2017-08-10 12:01 | PRG ---
DATE OF SERVICE: 08/10/2017 SUBJECTIVE: She feels better, had no acute complaints. PHYSICAL EXAMINATION: VITAL SIGNS: Temperature 96.9, pulse 95, respiration 16, O2 sat 100% on 4 liters, blood pressure 98/ 60. HEENT: Unremarkable. NECK: No JVD. LUNGS: She has a few crackles in both bases. CARDIAC: S1 and S2 regular. ABDOMEN: Soft. EXTREMITIES: No edema. LABORATORY DATA AND IMAGING DATA: Sodium 139, potassium 4.2, chloride 101, CO2 28, BUN 20, creatinin e 1.2, glucose 140. Her x-ray showed that she was turned, thus ended up resulted her having CT scan, she has got a small effusion in the left base, maybe a small amount of atelectasis down there, but o verall nothing profoundly abnormal, that I could see. ASSESSMENT: 1. Status post coronary artery bypass graft. 2. Acute hypoxic respiratory failure which is improving. 3. Pulmonary edema. PLAN: I think we should start to back down on her diuresis. Increase activity as tolerated. Contin ue nebulization treatments, probably does not need BiPAP anymore.
--- NOTE | 2017-08-10 14:04 | PDOC.PN ---
- Subjective Encounter Start Date: 08/10/17 Encounter Start Time: 14:03 Subjective: feels much better.no CP/fever/chills -: says that breathing is much better -: nursing reports that she needed little Bipap - Objective Resuscitation Status: Resuscitation Status FULL:Full Resuscitation MAR Reviewed: Yes Vital Signs & Weight: Vital Signs (12 hours) Temp Pulse Pulse Pulse Resp BP BP 08/10/17 11:26 90 89 112/61 100/63 08/10/17 10:57 98.8 F 87 16 08/10/17 08:17 96.9 F L 95 16 08/10/17 07:20 96.9 F L 95 16 08/10/17 03:00 98.2 F 88 20 BP Pulse Ox Pulse Ox Pulse Ox 08/10/17 11:26 100 100 08/10/17 10:57 102/63 97 08/10/17 08:17 100 08/10/17 07:20 98/60 97 08/10/17 03:00 109/51 L 94 L Weight Admit Weight 188 lb 5 oz Weight 185 lb 11.2 oz Most Recent Monitor Data Heart Rate from ECG 83 NIBP 110/60 NIBP BP-Mean 83 Respiration from ECG 18 SpO2 91 I&O: 08/09/17 08/10/17 08/11/17 06:59 06:59 06:59 Intake Total 660 1144 Output Total 2500 2125 Balance -1840 -981 Result Diagrams: 08/07/17 05:46 08/10/17 03:26 Additional Labs: Accuchecks 08/10/17 08/10/17 08/09/17 10:34 05:46 20:35 POC Glucose 139 H 129 H 130 H 08/09/17 16:28 POC Glucose 102 Laboratory Tests 08/08/17 08/09/17 08/10/17 08:19 05:20 03:26 Creatinine 0.93 0.98 1.21 H Radiology Reviewed by me: Yes (CT chest -small pleural effusion.L subcl art narrowing) Phys Exam - Physical Examination Constitutional: NAD HEENT: PERRLA, moist MMs, sclera anicteric, TM's clear, oral pharynx no lesions , 2+ tonsils Neck: no nodes, no JVD, supple, full ROM Respiratory: no rales few wheezes and rhonchi b/l Cardiovascular: RRR, no significant murmur, no rub Gastrointestinal: soft, non-tender, no distention, positive bowel sounds Musculoskeletal: no edema, pulses present Neurological: non-focal, normal sensation, moves all 4 limbs Psychiatric: normal affect, A&O x 3 Skin: no rash Dx/Plan (1) KUNAL (acute kidney injury) Code(s): N17.9 - ACUTE KIDNEY FAILURE, UNSPECIFIED Status: Acute (2) Acute respiratory failure with hypoxia Code(s): J96.01 - ACUTE RESPIRATORY FAILURE WITH HYPOXIA Status: Acute Comment: improving.Mostly off of bipap (3) Acute CHF Code(s): I50.9 - HEART FAILURE, UNSPECIFIED Status: Acute Qualifiers: Heart failure type: unspecified Qualified Code(s): I50.9 - Heart failure, unspecified Comment: suspecting systolic (4) Multiple vessel coronary artery disease Code(s): I25.10 - ATHSCL HEART DISEASE OF [place] CORONARY ARTERY W/O ANG PCTRS Status: Acute Comment: s/p CABG (5) NSTEMI (non-ST elevated myocardial infarction) Code(s): I21.4 - NON-ST ELEVATION (NSTEMI) MYOCARDIAL INFARCTION Status: Acute (6) Diabetes type 2, controlled Code(s): E11.9 - TYPE 2 DIABETES MELLITUS WITHOUT COMPLICATIONS Status: Chronic Qualifiers: Chronic kidney disease stage: stage 2 (mild) (7) Dyslipidemia Code(s): E78.5 - HYPERLIPIDEMIA, UNSPECIFIED Status: Chronic (8) GERD (gastroesophageal reflux disease) Code(s): K21.9 - GASTRO-ESOPHAGEAL REFLUX DISEASE WITHOUT ESOPHAGITIS Status: Chronic (9) Gout Code(s): M10.9 - GOUT, UNSPECIFIED Status: Chronic (10) Hypertension Code(s): I10 - ESSENTIAL (PRIMARY) HYPERTENSION Status: Chronic (11) Moderate mitral regurgitation Code(s): I34.0 - NONRHEUMATIC MITRAL (VALVE) INSUFFICIENCY Status: Chronic (12) Moderate pulmonary valve insufficiency Code(s): I37.1 - NONRHEUMATIC PULMONARY VALVE INSUFFICIENCY Status: Chronic (13) Obesity (BMI 30.0-34.9) Code(s): E66.9 - OBESITY, UNSPECIFIED Status: Chronic (14) PAD (peripheral artery disease) Code(s): I73.9 - PERIPHERAL VASCULAR DISEASE, UNSPECIFIED Status: Chronic (15) Tobacco abuse Code(s): Z72.0 - TOBACCO USE Status: Chronic - Plan PT/OT, social sciences research scientist, respiratory therapy, incentive spirometry, out of bed/ ambulate, DVT proph w/SCDs Dc Metformin and avoid any nephrotoxic meds as renal Fx worse today -: Lasix stopped. monitor volume status clinically -: cont nebs prn. -: cont ASA,Statin. add BB when ok w cardiology and BP allows -: no felicity-i as enal function worse . * .cardiology,CTVs and PCCM following.appreciate input * am labs Review of Systems - Review of Systems Constitutional: weakness. negative: fever, chills, sweats, malaise, other Respiratory: SOB with Excertion. negative: Cough, Dry, Shortness of Breath, Hemoptysis, Pleuritic Pain, Sputum, Wheezing Cardiovascular: negative: chest pain, palpitations, orthopnea, paroxysmal nocturnal dyspnea, edema, light headedness, other Gastrointestinal: negative: Nausea, Vomiting, Abdominal Pain, Diarrhea, Constipation, Melena, Hematochezia, Other Genitourinary: negative: Dysuria, Frequency, Incontinence, Hematuria, Retention , Other Musculoskeletal: negative: Neck Pain, Shoulder Pain, Arm Pain, Back Pain, Hand Pain, Leg Pain, Foot Pain, Other Neurological: negative: Weakness, Numbness, Incoordination, Change in Speech, Confusion, Seizures, Other - Medications/Allergies Allergies/Adverse Reactions: Allergies Allergy/AdvReac Type Severity Reaction Status Date / Time No Known Allergies Allergy Unverified 08/01/17 20:09 Medications: Current Medications Hydrocodone Bitart/Acetaminophen ([place] 5/325) 1 tab PO Q4H PRN PRN Reason: Moderate Pain (4-6) Last Admin: 08/09/17 12:14 Dose: 1 tab Hydrocodone Bitart/Acetaminophen ([place] 5/325) 2 tab PO Q4H PRN PRN Reason: Severe Pain (7-10) Last Admin: 08/10/17 10:02 Dose: 2 tab Al Hydroxide/Mg Hydroxide (Maalox) 30 ml PO Q4H PRN PRN Reason: Indigestion Albuterol Sulfate (Ventolin) 2.5 mg NEB Q6H PRN PRN Reason: Dyspnea/Wheezing/SOB Aspirin (Aspirin Chewable) 81 mg PO DAILY [facility] Last Admin: 08/10/17 10:02 Dose: 81 mg Atorvastatin Calcium (Lipitor) 40 mg PO HS [facility] Last Admin: 08/09/17 20:42 Dose: 40 mg Bisacodyl (Dulcolax) 10 mg PO Q12H PRN PRN Reason: Constipation Bisacodyl (Dulcolax) [address] Q12H PRN PRN Reason: Constipation Dextrose/Water (Dextrose 50%) 25 gm SLOW IVP PRN PRN PRN Reason: PER HYPOGLYCEMIC PROTOCOL Glucagon (Glucagon) 1 mg SC PRN PRN PRN Reason: PER HYPOGLYCEMIC PROTOCOL Guaifenesin/Dextromethorphan (Robitussin Dm) 15 ml PO Q4H PRN PRN Reason: Cough Dextrose/Water (D5w) 1,000 mls @ 0 mls/hr IV INF PRN; As Directed PRN Reason: PRN HYPOGLYCEMIC PROTOCOL Insulin Human Regular (Humulin R) 0 units SC .MODERATE SLIDING SC PRN; Protocol PRN Reason: MODERATE SLIDING SCALE Ipratropium [place] (Atrovent Hfa) 1 puff INH Q6H PRN PRN Reason: SOB &/or Wheezing Metformin HCl (Glucophage Xr) 500 mg PO QPM-[facility] Last Admin: 08/09/17 16:32 Dose: 500 mg Metformin HCl (Glucophage Xr) 1,000 mg PO QA-[facility] Last Admin: 08/10/17 10:02 Dose: 1,000 mg Ondansetron HCl (Zofran) 4 mg IVP Q6H PRN PRN Reason: Nausea/Vomiting Pantoprazole Sodium (Protonix) 40 mg PO DAILY [facility] Last Admin: 08/10/17 10:03 Dose: 40 mg Pregabalin (Lyrica) [facility] Last Admin: 08/10/17 10:01 Dose: 100 mg Sodium Chloride (Flush - Normal Saline) 10 ml IVF PRN PRN PRN Reason: Saline Flush Last Admin: 08/08/17 20:40 Dose: 10 ml
[2017-08-10] MEDS ORDERED: Dextrose 50% Abboject 50 ML SYRINGE SLOW IVP PRN (14:07)
[2017-08-10] MEDS ORDERED: Dextrose 5% in Water 1,000 ML IV PRN (14:07)
[2017-08-10 14:12] LABS: Actual Bicarbonate (HCO3a) 22.1 mEq/L (22-26); Base Excess (BEa) -2.4 mEq/L (0 (+/-) 2.5); CO2 Tension 36.8 mmHg (35.0-45.0); Hematocrit-ABG 32.5 % (36.0-47.0); Hemoglobin (Hb) 9.5 g/dL (12.0-16.0); O2 Tension (PaO2) 101.7 mmHg (80.0-100.0)
[2017-08-10 14:13] LABS: Analyzer IN Cardio OR; Calcium, Ionized 1.1 mmol/L (1.12-1.30); Puncture Site ALINE
[2017-08-10] MEDS: Atorvastatin Calcium 40 MG TAB PO SCH (20:47)
[2017-08-11 05:37] LABS: Anion Gap 11 mmol/L (10-20); BUN (Urea Nitrogen) 29 mg/dL (9.8-20.1); Calc. Creatinine Clearance 65 mL/min (70-130); Calcium 9.8 mg/dL (7.8-10.44); Carbon Dioxide 29 mmol/L (23-31); Chloride 101 mmol/L (98-107); Estimated GFR-MDRD 57; Glucose 138 mg/dL (80-115); Potassium 4.1 mmol/L (3.5-5.1); Sodium 137 mmol/L (136-145)
[2017-08-11 06:19] LABS: #Eosinphils 1.2 thou/uL (0.0-0.7); #Lymphocytes 2.8 thou/uL (1.20-3.40); #Monocytes 1.5 thou/uL (0.11-0.59); #Neutrophils 8.1 thou/uL (1.40-6.50); %Basophils 0.2 % (0.0-1.0); %Eosinophils 8.6 % (0.0-10.0); %Lymphocytes 20.4 % (21.0-51.0); %Monocytes 11.1 % (0.0-10.0); %Neutrophils 59.7 % (42.0-75.0); Blister Cells SLIGHT = 2-5 cells (100X) (0-1/hpf); Hemoglobin 8.8 g/dL (12.0-16.0); MDiff Complete? YES; Mean Corpuscular HGB CONC 31.4 g/dL (32.0-36.0); Mean Corpuscular Hemoglobin 28.9 pg (27.0-31.0); Mean Corpuscular Volume 92.2 fl (81.0-99.0); Mean Platelet Volume 8.1 fL (7.4-10.4); Platelet Count 291 thou/uL (130-400); Polychromasia SLIGHT = 2-3 cells (100X) (0-2/hpf); RBC Distribution Width 14.2 % (11.5-14.5); Red Blood Cell (RBC) Count 3.04 mill/uL (4.20-5.40); Stomatocytes SLIGHT = 2-5 cells (100X) (0-1/hpf); White Blood Cell (WBC) Count 13.5 thou/uL (4.8-10.8)
--- NOTE | 2017-08-11 08:13 | PRG ---
DATE OF SERVICE: 08/11/2017 SUBJECTIVE: Ms. Olmedo is feeling better. She had no acute complaints. She did manage to get up ye sterday and walked the halls. She did not have to use the BiPAP last night. OBJECTIVE: VITAL SIGNS: Temperature is 97.1, pulse 93, respirations 16, O2 sat 98% on 4 liters, blood pressure 119/66. HEENT: Unremarkable. NECK: No JVD. LUNGS: Slightly diminished breath sounds in both bases. No wheezing. CARDIAC: S1 and S2 regular. ABDOMEN: Soft, nontender. EXTREMITIES: No clubbing, cyanosis, or edema. LABORATORY DATA: Sodium 137, potassium 4.1, chloride 101, CO2 29, BUN 29, creatinine 1.1, glucose 13 8. White blood cell count 13.5, hematocrit 28, platelet count 291. ASSESSMENT: 1. Post-coronary artery bypass graft with very slow improvement. 2. Status post acute hypoxic respiratory failure - still requiring some oxygen. 3. Slightly improved pulmonary edema. RECOMMENDATIONS: 1. Continue increase activity as tolerated. 2. Continue nebulization treatments. 3. Discontinue BiPAP machine from the room.
[2017-08-11] MEDS: metFORMIN XR 500 MG TAB PO SCH (08:42)
[2017-08-11] MEDS: Pregabalin 25 MG CAP PO SCH (08:42)
[2017-08-11] MEDS: HYDROcodone/Acetaminophen 5/325 mg Tablet PO PRN ×2 (08:43→21:40)
--- NOTE | 2017-08-11 08:43 | RAD ---
CHEST 1 VIEW: HISTORY: Dyspnea. Chest pain. COMPARISON: 08/10/17. FINDINGS: Cardiac silhouette magnified, enlarged, and partially obscured by left pleural fluid. The patient is rotated leftward. Pulmonary vasculature is more engorged than on the prior study. Right subclavian central venous catheter remains in place. IMPRESSION: 1. Increase in pulmonary vascular congestion. 2. Left pleural fluid and other findings are otherwise stable. POS: [facility]
--- NOTE | 2017-08-11 12:20 | PDOC.PN ---
- Subjective Encounter Start Date: 08/11/17 Encounter Start Time: 14:30 Subjective: Patient feeling a little better. Burning to BLE. Being moved to -: telemetry. - Objective Resuscitation Status: Resuscitation Status FULL:Full Resuscitation MAR Reviewed: Yes Vital Signs & Weight: Vital Signs (12 hours) Temp Pulse Pulse Pulse Resp BP BP 08/11/17 10:56 97.6 F 89 18 08/11/17 08:52 08/11/17 08:35 92 93 100/50 L 118/60 08/11/17 08:00 97.1 F L 93 16 08/11/17 07:20 97.1 F L 93 16 08/11/17 03:44 97.1 F L 87 17 BP Pulse Ox Pulse Ox Pulse Ox 08/11/17 10:56 114/56 L 94 L 08/11/17 08:52 98 08/11/17 08:35 97 98 08/11/17 08:00 99 08/11/17 07:20 119/66 98 08/11/17 03:44 97/58 L 100 Weight Admit Weight 188 lb 5 oz Weight 180 lb 9.6 oz Most Recent Monitor Data Heart Rate from ECG 83 NIBP 110/60 NIBP BP-Mean 83 Respiration from ECG 18 SpO2 91 I&O: 08/10/17 08/11/17 08/12/17 06:59 06:59 06:59 Intake Total 1144 325 Output Total 2125 1500 Balance -981 -1175 Result Diagrams: 08/11/17 05:00 08/11/17 05:00 Additional Labs: Accuchecks 08/11/17 08/11/17 08/10/17 10:24 05:50 20:01 POC Glucose 157 H 140 H 115 H 08/10/17 16:28 POC Glucose 106 Phys Exam - Physical Examination Constitutional: NAD HEENT: moist MMs Respiratory: no wheezing, no rales, no rhonchi Cardiovascular: RRR Gastrointestinal: soft, positive bowel sounds Neurological: non-focal Psychiatric: normal affect, A&O x 3 Deviation from normal: scally patches on bilateral legs/thighs, worse on left ( unchanged per pt) Dx/Plan (1) NSTEMI (non-ST elevated myocardial infarction) Code(s): I21.4 - NON-ST ELEVATION (NSTEMI) MYOCARDIAL INFARCTION Status: Acute (2) Multiple vessel coronary artery disease Code(s): I25.10 - ATHSCL HEART DISEASE OF [place] CORONARY ARTERY W/O ANG PCTRS Status: Acute Comment: s/p CABG (3) Acute CHF Code(s): I50.9 - HEART FAILURE, UNSPECIFIED Status: Acute Qualifiers: Heart failure type: unspecified Qualified Code(s): I50.9 - Heart failure, unspecified Comment: ECHO with normal EF 55-60% (4) Acute respiratory failure with hypoxia Code(s): J96.01 - ACUTE RESPIRATORY FAILURE WITH HYPOXIA Status: Acute Comment: improving.Mostly off of bipap (5) Diabetes type 2, controlled Code(s): E11.9 - TYPE 2 DIABETES MELLITUS WITHOUT COMPLICATIONS Status: Chronic Qualifiers: Chronic kidney disease stage: stage 2 (mild) (6) Dyslipidemia Code(s): E78.5 - HYPERLIPIDEMIA, UNSPECIFIED Status: Chronic (7) GERD (gastroesophageal reflux disease) Code(s): K21.9 - GASTRO-ESOPHAGEAL REFLUX DISEASE WITHOUT ESOPHAGITIS Status: Chronic (8) Gout Code(s): M10.9 - GOUT, UNSPECIFIED Status: Chronic (9) Hypertension Code(s): I10 - ESSENTIAL (PRIMARY) HYPERTENSION Status: Chronic (10) Moderate mitral regurgitation Code(s): I34.0 - NONRHEUMATIC MITRAL (VALVE) INSUFFICIENCY Status: Chronic (11) Moderate pulmonary valve insufficiency Code(s): I37.1 - NONRHEUMATIC PULMONARY VALVE INSUFFICIENCY Status: Chronic (12) Obesity (BMI 30.0-34.9) Code(s): E66.9 - OBESITY, UNSPECIFIED Status: Chronic (13) PAD (peripheral artery disease) Code(s): I73.9 - PERIPHERAL VASCULAR DISEASE, UNSPECIFIED Status: Chronic (14) Tobacco abuse Code(s): Z72.0 - TOBACCO USE Status: Chronic (15) Psoriasis Code(s): L40.9 - PSORIASIS, UNSPECIFIED Status: Chronic Comment: will add steroid cream BID - Plan cont current plan of care, PT/OT, respiratory therapy transfered to telemetry * . - Discharge Day Encounter end time: 14:45
[2017-08-11] MEDS: Albuterol Sulfate 2.5 mg/3 ml Neb NEB PRN (15:30)
[2017-08-11] MEDS: Hydrocortisone 1% Cream 1.5 GM Packet TOP SCH (21:41)
[2017-08-11] MEDS: Atorvastatin Calcium 40 MG TAB PO SCH (21:41)
[2017-08-12] MEDS: Albuterol Sulfate 2.5 mg/3 ml Neb NEB PRN ×2 (04:49→11:29)
--- NOTE | 2017-08-12 07:09 | PDOC.PN ---
- Subjective Encounter Start Date: 08/12/17 Encounter Start Time: 09:15 Subjective: Patient reports some persistent burning/stinging in legs/thighs. SOB -: improved. Needing less oxygen. Congestion in back of throat. - Objective Resuscitation Status: Resuscitation Status FULL:Full Resuscitation MAR Reviewed: Yes Vital Signs & Weight: Vital Signs (12 hours) Temp Pulse Resp BP Pulse Ox 08/12/17 04:49 86 18 96 08/12/17 04:00 98.4 F 94 18 131/59 L 92 L 08/11/17 20:00 99.3 F 94 18 128/59 L 96 Weight Admit Weight 188 lb 5 oz Weight 180 lb 9.6 oz Most Recent Monitor Data Heart Rate from ECG 83 NIBP 110/60 NIBP BP-Mean 83 Respiration from ECG 18 SpO2 91 I&O: 08/11/17 08/12/17 08/13/17 06:59 06:59 06:59 Intake Total 325 150 Output Total 1500 1100 Balance -5205 950 Result Diagrams: 08/11/17 05:00 08/11/17 05:00 Additional Labs: Accuchecks 08/12/17 08/11/17 08/11/17 05:39 21:21 10:24 POC Glucose 139 H 123 H 157 H Phys Exam - Physical Examination Constitutional: NAD HEENT: moist MMs Respiratory: no wheezing, no rales, no rhonchi Cardiovascular: RRR Gastrointestinal: soft, positive bowel sounds Neurological: non-focal, moves all 4 limbs Psychiatric: normal affect, A&O x 3 Deviation from normal: psoriasis rash to legs/thighs Dx/Plan (1) NSTEMI (non-ST elevated myocardial infarction) Code(s): I21.4 - NON-ST ELEVATION (NSTEMI) MYOCARDIAL INFARCTION Status: Acute (2) Multiple vessel coronary artery disease Code(s): I25.10 - ATHSCL HEART DISEASE OF [place] CORONARY ARTERY W/O ANG PCTRS Status: Acute Comment: s/p CABG (3) Acute CHF Code(s): I50.9 - HEART FAILURE, UNSPECIFIED Status: Acute Qualifiers: Heart failure type: unspecified Qualified Code(s): I50.9 - Heart failure, unspecified Comment: ECHO with normal EF 55-60% (4) Acute respiratory failure with hypoxia Code(s): J96.01 - ACUTE RESPIRATORY FAILURE WITH HYPOXIA Status: Acute Comment: improving.Mostly off of bipap (5) Diabetes type 2, controlled Code(s): E11.9 - TYPE 2 DIABETES MELLITUS WITHOUT COMPLICATIONS Status: Chronic Qualifiers: Chronic kidney disease stage: stage 2 (mild) (6) Dyslipidemia Code(s): E78.5 - HYPERLIPIDEMIA, UNSPECIFIED Status: Chronic (7) GERD (gastroesophageal reflux disease) Code(s): K21.9 - GASTRO-ESOPHAGEAL REFLUX DISEASE WITHOUT ESOPHAGITIS Status: Chronic (8) Gout Code(s): M10.9 - GOUT, UNSPECIFIED Status: Chronic (9) Hypertension Code(s): I10 - ESSENTIAL (PRIMARY) HYPERTENSION Status: Chronic (10) Moderate mitral regurgitation Code(s): I34.0 - NONRHEUMATIC MITRAL (VALVE) INSUFFICIENCY Status: Chronic (11) Moderate pulmonary valve insufficiency Code(s): I37.1 - NONRHEUMATIC PULMONARY VALVE INSUFFICIENCY Status: Chronic (12) Obesity (BMI 30.0-34.9) Code(s): E66.9 - OBESITY, UNSPECIFIED Status: Chronic (13) PAD (peripheral artery disease) Code(s): I73.9 - PERIPHERAL VASCULAR DISEASE, UNSPECIFIED Status: Chronic (14) Tobacco abuse Code(s): Z72.0 - TOBACCO USE Status: Chronic (15) Psoriasis Code(s): L40.9 - PSORIASIS, UNSPECIFIED Status: Chronic Comment: will add steroid cream BID (16) KUNAL (acute kidney injury) Code(s): N17.9 - ACUTE KIDNEY FAILURE, UNSPECIFIED Status: Acute Comment: likely due to diuresis, recheck creatinine in AM - Plan cont current plan of care, PT/OT, DVT proph w/SCDs rehab vs. home with home health depending on patient progress -: patient prefers to go home, wean O2 as able * . - Discharge Day Encounter end time: 09:30
[2017-08-12] MEDS: metFORMIN XR 500 MG TAB PO SCH (09:37)
[2017-08-12] MEDS: HYDROcodone/Acetaminophen 5/325 mg Tablet PO PRN ×2 (09:37→20:44)
[2017-08-12] MEDS: Hydrocortisone 1% Cream 1.5 GM Packet TOP SCH ×2 (09:37→20:45)
[2017-08-12] MEDS ORDERED: Pregabalin 50 MG CAP PO SCH (10:00)
[2017-08-12] MEDS: Pregabalin 50 MG CAP PO SCH (10:44)
[2017-08-12] MEDS: Pregabalin 25 MG CAP PO SCH (10:47)
[2017-08-12] MEDS ORDERED: Furosemide 20 MG/2 ML VIAL SLOW IVP SCH (20:00)
--- NOTE | 2017-08-12 20:31 | PRG ---
DATE OF SERVICE: 08/12/2017 SERVICE: Pulmonary Medicine. INTERVAL HISTORY: The patient is doing fantastic from a respiratory standpoint. She does not have m uch motivation to move. She is working with physical therapy a little bit. She denies any current c hest pain, nausea or vomiting. She is tolerating p.o. just fine. She is slow to improve following t he surgery. PHYSICAL EXAMINATION: VITAL SIGNS: Afebrile, pulse 85, blood pressure 112/59, respirations 16, saturation 96% on 2 liters nasal cannula. GENERAL: The patient is awake, alert, no apparent distress. LUNGS: Decent air entry. There are some rhonchi present. No prolonged expiratory phase or wheezing is appreciated. HEART: Normal rate, regular. ABDOMEN: Soft, nontender, and nondistended. Bowel sounds are positive. MUSCULOSKELETAL: No cyanosis or clubbing. There is no pitting in the bilateral lower extremities. NEUROLOGIC: Grossly nonfocal. LABORATORY DATA: Blood sugars ranged from 123-169. Blood cultures x2 are unremarkable. IMAGING: Chest x-ray demonstrates increasing pulmonary vascular congestion. Left pleural fluid michelle ins. Right IJ central venous catheter terminates in good position. ASSESSMENT: 1. Acute hypoxic respiratory failure. 2. Coronary bypass graft, postop day #8. 3. Left-sided pleural effusion. DISCUSSION AND PLAN: I will continue to diurese the patient to euvolemia. If the pleural effusion f ails to clear, thoracentesis may need to be considered. Pulmonary or Critical Care will continue to follow along.
[2017-08-12] MEDS: Atorvastatin Calcium 40 MG TAB PO SCH (20:45)
[2017-08-13] MEDS: HYDROcodone/Acetaminophen 5/325 mg Tablet PO PRN ×3 (01:39→20:46)
[2017-08-13 04:25] LABS: Anion Gap 15 mmol/L (10-20); BUN (Urea Nitrogen) 29 mg/dL (9.8-20.1); Calc. Creatinine Clearance 55 mL/min (70-130); Carbon Dioxide 30 mmol/L (23-31); Chloride 99 mmol/L (98-107); Estimated GFR-MDRD 49; Glucose 130 mg/dL (80-115); Potassium 4.1 mmol/L (3.5-5.1); Sodium 140 mmol/L (136-145)
[2017-08-13 05:34] LABS: #Basophils 0.1 thou/uL (0.0-0.2); #Eosinphils 1.7 thou/uL (0.0-0.7); #Lymphocytes 3.5 thou/uL (1.20-3.40); #Monocytes 1.6 thou/uL (0.11-0.59); #Neutrophils 8.9 thou/uL (1.40-6.50); %Basophils 0.4 % (0.0-1.0); %Lymphocytes 21.9 % (21.0-51.0); %Monocytes 10.3 % (0.0-10.0); %Neutrophils 56.5 % (42.0-75.0); Mean Corpuscular HGB CONC 32.8 g/dL (32.0-36.0); Mean Corpuscular Hemoglobin 30.4 pg (27.0-31.0); Mean Corpuscular Volume 92.8 fl (81.0-99.0); Mean Platelet Volume 8.1 fL (7.4-10.4); PLT Morphology Comment Appears Adequate; Platelet Count 323 thou/uL (130-400); RBC Distribution Width 14.1 % (11.5-14.5); RBC Morphology Normal; Red Blood Cell (RBC) Count 2.97 mill/uL (4.20-5.40); White Blood Cell (WBC) Count 15.8 thou/uL (4.8-10.8)
[2017-08-13] MEDS: Albuterol Sulfate 2.5 mg/3 ml Neb NEB PRN (06:18)
[2017-08-13] MEDS ORDERED: Eucerin (Mineral Oil/Petrolatum,White) 30 gm Jar TOP PRN (07:57)
[2017-08-13] MEDS ORDERED: Artificial Tears 18 DROP/0.9 ML EA EYE PRN (07:57)
[2017-08-13] MEDS ORDERED: Ondansetron ODT 4 MG TAB PO PRN (07:57)
[2017-08-13] MEDS ORDERED: Nitroglycerin 0.4 MG TAB (25 Tab Bottle) SL PRN (07:57)
[2017-08-13] MEDS ORDERED: Diabetic Tussin 200 MG/10 ML UDCUP PO PRN (07:57)
[2017-08-13] MEDS ORDERED: Acetaminophen 325 MG TAB PO PRN (07:57)
[2017-08-13] MEDS ORDERED: Chloraseptic Spray 180 ml Bottle PO PRN (07:57)
[2017-08-13] MEDS ORDERED: Milk Of Magnesia 30 ML UDCUP PO PRN (07:57)
[2017-08-13] MEDS ORDERED: Sodium Chloride 0.65% Nasal 44 ML BOT EA NARE PRN (07:57)
[2017-08-13] MEDS ORDERED: Loperamide HCl 2 MG CAP PO PRN (07:57)
[2017-08-13] MEDS: metFORMIN XR 500 MG TAB PO SCH (08:34)
[2017-08-13] MEDS: Pregabalin 50 MG CAP PO SCH (08:35)
[2017-08-13] MEDS: Hydrocortisone 1% Cream 1.5 GM Packet TOP SCH ×2 (08:36→20:36)
[2017-08-13] MEDS ORDERED: Furosemide 40 MG/4 ML VIAL SLOW IVP SCH (09:00)
--- NOTE | 2017-08-13 11:07 | PDOC.PN ---
- Subjective Encounter Start Date: 08/13/17 Encounter Start Time: 07:50 -: old records requested/rev Patient seen and examined for CHF, CAD. No new complaints. No overnight events - Objective Resuscitation Status: Resuscitation Status FULL:Full Resuscitation MAR Reviewed: Yes Vital Signs & Weight: Vital Signs (12 hours) Temp Pulse Resp BP Pulse Ox 08/13/17 08:02 98 F 84 20 115/56 L 97 08/13/17 08:00 98 F 84 20 08/13/17 06:18 20 08/13/17 04:36 97.2 F L 84 20 100/59 L 96 08/13/17 00:10 98.0 F 89 20 113/70 100 Weight Admit Weight 188 lb 5 oz Weight 183 lb Most Recent Monitor Data Heart Rate from ECG 83 NIBP 110/60 NIBP BP-Mean 83 Respiration from ECG 18 SpO2 91 I&O: 08/12/17 08/13/17 08/14/17 06:59 06:59 06:59 Intake Total 150 480 Output Total 1100 1120 Balance -950 -640 Result Diagrams: 08/13/17 03:53 08/13/17 03:53 Additional Labs: Accuchecks 08/13/17 08/12/17 08/12/17 05:32 21:19 16:16 POC Glucose 146 H 161 H 131 H 08/12/17 10:55 POC Glucose 169 H EKG Reviewed by me: Yes (nsr) Phys Exam - Physical Examination Constitutional: NAD HEENT: PERRLA, moist MMs, sclera anicteric Neck: no JVD, supple Respiratory: no wheezing, no rales, no rhonchi surgical site clean Cardiovascular: RRR, no significant murmur, no rub Gastrointestinal: soft, non-tender, no distention, positive bowel sounds Musculoskeletal: no edema, pulses present Neurological: non-focal, normal sensation, moves all 4 limbs Lymphatic: no nodes Psychiatric: normal affect, A&O x 3 Skin: no rash, normal turgor Dx/Plan (1) NSTEMI (non-ST elevated myocardial infarction) Code(s): I21.4 - NON-ST ELEVATION (NSTEMI) MYOCARDIAL INFARCTION Status: Acute (2) Acute CHF Code(s): I50.9 - HEART FAILURE, UNSPECIFIED Status: Acute Qualifiers: Heart failure type: unspecified Qualified Code(s): I50.9 - Heart failure, unspecified Comment: ECHO with normal EF 55-60% (3) Diabetes type 2, controlled Code(s): E11.9 - TYPE 2 DIABETES MELLITUS WITHOUT COMPLICATIONS Status: Chronic Qualifiers: Chronic kidney disease stage: stage 2 (mild) (4) Dyslipidemia Code(s): E78.5 - HYPERLIPIDEMIA, UNSPECIFIED Status: Chronic (5) GERD (gastroesophageal reflux disease) Code(s): K21.9 - GASTRO-ESOPHAGEAL REFLUX DISEASE WITHOUT ESOPHAGITIS Status: Chronic (6) Gout Code(s): M10.9 - GOUT, UNSPECIFIED Status: Chronic (7) Hypertension Code(s): I10 - ESSENTIAL (PRIMARY) HYPERTENSION Status: Chronic (8) Lactic acidosis Code(s): E87.2 - ACIDOSIS Status: Resolved (9) Obesity (BMI 30.0-34.9) Code(s): E66.9 - OBESITY, UNSPECIFIED Status: Chronic (10) PAD (peripheral artery disease) Code(s): I73.9 - PERIPHERAL VASCULAR DISEASE, UNSPECIFIED Status: Chronic (11) Multiple vessel coronary artery disease Code(s): I25.10 - ATHSCL HEART DISEASE OF [place] CORONARY ARTERY W/O ANG PCTRS Status: Acute Comment: s/p CABG (12) Tobacco abuse Code(s): Z72.0 - TOBACCO USE Status: Chronic - Plan cont current plan of care * medication reviewed as below * symptomatic treatment * continue lasix, will monitor renal function, creatinine is going up * will need repeat chest xray to see resolution of pleural effusion * medication reviewed as below * symptomatic treatment. Review of Systems - Review of Systems Eyes: negative: Pain, Vision Change, Conjunctivae Inflammation, Eyelid Inflammation, Redness, Other ENT: negative: Ear Pain, Ear Discharge, Nose Pain, Nose Discharge, Nose Congestion, Mouth Pain, Mouth Swelling, Throat Pain, Throat Swelling, Other Respiratory: negative: Cough, Dry, Shortness of Breath, Hemoptysis, SOB with Excertion, Pleuritic Pain, Sputum, Wheezing Cardiovascular: negative: chest pain, palpitations, orthopnea, paroxysmal nocturnal dyspnea, edema, light headedness, other Gastrointestinal: negative: Nausea, Vomiting, Abdominal Pain, Diarrhea, Constipation, Melena, Hematochezia, Other Genitourinary: negative: Dysuria, Frequency, Incontinence, Hematuria, Retention , Other Musculoskeletal: negative: Neck Pain, Shoulder Pain, Arm Pain, Back Pain, Hand Pain, Leg Pain, Foot Pain, Other Skin: negative: Rash, Lesions, Cade, Bruising, Other - Medications/Allergies Allergies/Adverse Reactions: Allergies Allergy/AdvReac Type Severity Reaction Status Date / Time No Known Allergies Allergy Unverified 08/01/17 20:09 Medications: Current Medications Acetaminophen (Tylenol) 650 mg PO Q4H PRN PRN Reason: Headache/Fever or Mild Pain Hydrocodone Bitart/Acetaminophen ([place] 5/325) 1 tab PO Q4H PRN PRN Reason: Moderate Pain (4-6) Last Admin: 08/13/17 01:39 Dose: 1 tab Hydrocodone Bitart/Acetaminophen ([place] 5/325) 2 tab PO Q4H PRN PRN Reason: Severe Pain (7-10) Last Admin: 08/11/17 21:40 Dose: 2 tab Al Hydroxide/Mg Hydroxide (Maalox) 30 ml PO Q4H PRN PRN Reason: Indigestion Albuterol Sulfate (Ventolin) 2.5 mg NEB Q6H PRN PRN Reason: Dyspnea/Wheezing/SOB Last Admin: 08/13/17 06:18 Dose: 2.5 mg Artificial Tears (Tears Naturale) 0 drop EA EYE PRN PRN PRN Reason: Dry Eyes Aspirin (Aspirin Chewable) 81 mg PO DAILY [facility] Last Admin: 08/13/17 08:35 Dose: 81 mg Atorvastatin Calcium (Lipitor) 40 mg PO HS [facility] Last Admin: 08/12/17 20:45 Dose: 40 mg Bisacodyl (Dulcolax) 10 mg PO Q12H PRN PRN Reason: Constipation Bisacodyl (Dulcolax) 10 mg [place] Q12H PRN PRN Reason: Constipation Dextrose/Water (Dextrose 50%) 25 gm SLOW IVP PRN PRN PRN Reason: Hypoglycemia Furosemide (Lasix) 40 mg SLOW IVP DAILY [facility] Last Admin: 08/13/17 08:36 Dose: 40 mg Glucagon (Glucagon) 1 mg IM PRN PRN PRN Reason: Hypoglycemia Guaifenesin (Robitussin Sf) 200 mg PO Q4H PRN PRN Reason: Cough Guaifenesin/Dextromethorphan (Robitussin Dm) 15 ml PO Q4H PRN PRN Reason: Cough Last Admin: 08/12/17 04:36 Dose: 15 ml Hydrocortisone Sodium Succinate (Hydrocortisone 1%) 0 gm TOP BID [facility] Last Admin: 08/13/17 08:36 Dose: 1.5 gm Dextrose/Water (D5w) 1,000 mls @ 0 mls/hr IV .Q0M PRN; As Directed PRN Reason: Hypoglycemia Insulin Human Regular (Humulin R) 0 units SC .MODERATE SLIDING SC PRN; Protocol PRN Reason: MODERATE SLIDING SCALE Ipratropium [place] (Atrovent Hfa) 1 puff INH Q6H PRN PRN Reason: SOB &/or Wheezing Loperamide HCl (Imodium) 2 mg PO PRN PRN PRN Reason: Diarrhea/Loose Stools Magnesium Hydroxide (Milk Of Magnesium) 30 ml PO DAILYPRN PRN PRN Reason: Constipation Metformin HCl (Glucophage Xr) 1,000 mg PO QA[facility] Last Admin: 08/13/17 08:34 Dose: 1,000 mg Mineral Oil/White Petrolatum (Eucerin Cream) 0 gm TOP BIDPRN PRN PRN Reason: Dry Skin Nitroglycerin (Nitrostat) 0.4 mg SL Q5MIN PRN PRN Reason: Chest Pain Ondansetron HCl (Zofran) 4 mg IVP Q6H PRN PRN Reason: Nausea/Vomiting Ondansetron HCl (Zofran Odt) 4 mg PO Q6H PRN PRN Reason: Nausea/Vomiting Pantoprazole Sodium (Protonix) 40 mg PO DAILY [facility] Last Admin: 08/13/17 08:35 Dose: 40 mg Phenol (Chloraseptic [place] 180 Ml Bot) 0 ml PO PRN PRN PRN Reason: Sore Throat Pregabalin (Lyrica) 100 mg PO [facility] Last Admin: 08/13/17 08:35 Dose: 100 mg Sodium Chloride (Flush - Normal Saline) 10 ml IVF PRN PRN PRN Reason: Saline Flush Last Admin: 08/12/17 20:45 Dose: 10 ml Sodium Chloride ([place] Nasal [place] 0.65%) 0 ml EA NARE QIDPRN PRN PRN Reason: Nasal Congestion
[2017-08-13 17:40] LABS: Bilirubin Negative (Negative); Blood, Urine Trace (Negative); Clarity CLEAR (Clear); Glucose, Urine (Dipstick) Negative (Negative); Leukocyte Small (Negative); Nitrite Negative (Negative); Protein, Urine (Dipstick) Negative (Neg-Trace); Specific Gravity, Urine 1.012 (1.002-1.036); Urobilinogen 0.2 mg/dL (0.2-1.0)
[2017-08-13 17:43] LABS: Bacteria/HPF None Seen HPF (None Seen); Pathc Cast-AUWi Flag 2.03 (0-2.49); Squamous Epithelial 0-3 HPF (0-3)
[2017-08-13 17:45] LABS: Hyaline Casts/LPF 0-3 HYALINE CAST LPF (0-3 Hyaline)
--- NOTE | 2017-08-13 20:17 | PRG ---
DATE OF SERVICE: 08/13/2017 SERVICE: Pulmonary Medicine. INTERVAL HISTORY: Patient is doing fine from a respiratory standpoint. He walked multiple times today with physical therapy. He actually feels like he has turned the corner. Denies any chest pain, nausea, vomiting, fevers or chills. Otherwise, there has been no interval change to his condition. PHYSICAL EXAMINATION: VITAL SIGNS: Afebrile, pulse 85, blood pressure 103/51, respirations 18, saturation 94% on 2 liters nasal cannula. GENERAL: The patient is awake, alert, no apparent distress. LUNGS: Excellent air entry today. There is no prolonged expiratory phase, wheezing, rhonchi, or crackles present. HEART: Normal rate, regular. ABDOMEN: Soft, nontender, nondistended. Bowel sounds are positive. MUSCULOSKELETAL: No cyanosis or clubbing. There is pitting in the bilateral lower extremities, which is improved. GENITOURINARY: No [place]. NEUROLOGIC: Grossly nonfocal. LABORATORY DATA: WBC 15.8, hemoglobin 9.0, platelets 323,000. Creatinine 1.32 and gently up trending. Basic metabolic profile is otherwise unremarkable with calcium of 10.0. Blood cultures x2 remain unremarkable. ASSESSMENT: 1. Acute hypoxic respiratory failure. 2. Coronary artery bypass graft, postoperative day #9. 3. Left-sided pleural effusion. PLAN: I have reinforced the importance of mobility in the perioperative setting. She understands if her strength does not improved, she may be well served by spending a couple of weeks in a SNF or Rehab center to regain strength. She is strongly opposed to that and intends to make efforts toward becoming more active. Pulmonary Critical Care will continue to follow along. MEGHANN
[2017-08-13] MEDS: Atorvastatin Calcium 40 MG TAB PO SCH (20:36)
[2017-08-14 05:47] LABS: #Basophils 0.1 thou/uL (0.0-0.2); #Lymphocytes 2.9 thou/uL (1.20-3.40); #Monocytes 1.3 thou/uL (0.11-0.59); #Neutrophils 7.3 thou/uL (1.40-6.50); %Basophils 0.5 % (0.0-1.0); %Eosinophils 14.6 % (0.0-10.0); %Lymphocytes 21.3 % (21.0-51.0); %Monocytes 9.3 % (0.0-10.0); %Neutrophils 54.3 % (42.0-75.0); Hemoglobin 9.4 g/dL (12.0-16.0); Mean Corpuscular HGB CONC 31.3 g/dL (32.0-36.0); Mean Corpuscular Hemoglobin 28.8 pg (27.0-31.0); Mean Platelet Volume 8.1 fL (7.4-10.4); Platelet Count 317 thou/uL (130-400); RBC Distribution Width 14.1 % (11.5-14.5); Red Blood Cell (RBC) Count 3.26 mill/uL (4.20-5.40); White Blood Cell (WBC) Count 13.5 thou/uL (4.8-10.8)
[2017-08-14 06:03] LABS: Anion Gap 16 mmol/L (10-20); BUN (Urea Nitrogen) 28 mg/dL (9.8-20.1); Calc. Creatinine Clearance 60 mL/min (70-130); Calcium 9.9 mg/dL (7.8-10.44); Carbon Dioxide 26 mmol/L (23-31); Chloride 98 mmol/L (98-107); Estimated GFR-MDRD 53; Glucose 107 mg/dL (80-115); Sodium 136 mmol/L (136-145)
[2017-08-14] MEDS: metFORMIN XR 500 MG TAB PO SCH (08:49)
[2017-08-14] MEDS: Pregabalin 50 MG CAP PO SCH (08:50)
[2017-08-14] MEDS: Furosemide 40 MG TAB PO SCH (08:50)
[2017-08-14] MEDS: Hydrocortisone 1% Cream 1.5 GM Packet TOP SCH ×2 (08:55→21:57)
--- NOTE | 2017-08-14 09:59 | PDOC.PN ---
- Subjective Encounter Start Date: 08/14/17 Encounter Start Time: 08:00 Patient seen and examined for CHF. No new complaints. No overnight events - Objective Resuscitation Status: Resuscitation Status FULL:Full Resuscitation MAR Reviewed: Yes Vital Signs & Weight: Vital Signs (12 hours) Temp Pulse Resp BP Pulse Ox 08/14/17 08:20 98.4 F 82 17 110/57 L 93 L 08/14/17 08:00 98.4 F 82 17 08/14/17 04:00 98.3 F 79 12 117/56 L 100 Weight Admit Weight 188 lb 5 oz Weight 183 lb Most Recent Monitor Data Heart Rate from ECG 83 NIBP 110/60 NIBP BP-Mean 83 Respiration from ECG 18 SpO2 91 I&O: 08/13/17 08/14/17 08/15/17 06:59 06:59 06:59 Intake Total 480 680 Output Total 1120 1000 Balance -640 -320 Result Diagrams: 08/14/17 04:57 08/14/17 04:57 Additional Labs: Accuchecks 08/14/17 08/13/17 08/13/17 06:09 20:46 16:40 POC Glucose 118 H 121 H 92 08/13/17 11:41 POC Glucose 168 H EKG Reviewed by me: Yes (nsr) Phys Exam - Physical Examination Constitutional: NAD HEENT: PERRLA, moist MMs, sclera anicteric Neck: no JVD, supple Respiratory: no wheezing, no rales, no rhonchi reduced air entry at left base Cardiovascular: RRR, no significant murmur, no rub Gastrointestinal: soft, non-tender, no distention, positive bowel sounds Musculoskeletal: no edema, pulses present Neurological: non-focal, normal sensation, moves all 4 limbs Psychiatric: normal affect, A&O x 3 Skin: no rash, normal turgor Dx/Plan (1) NSTEMI (non-ST elevated myocardial infarction) Code(s): I21.4 - NON-ST ELEVATION (NSTEMI) MYOCARDIAL INFARCTION Status: Acute (2) Acute CHF Code(s): I50.9 - HEART FAILURE, UNSPECIFIED Status: Acute Qualifiers: Heart failure type: unspecified Qualified Code(s): I50.9 - Heart failure, unspecified Comment: ECHO with normal EF 55-60% (3) Diabetes type 2, controlled Code(s): E11.9 - TYPE 2 DIABETES MELLITUS WITHOUT COMPLICATIONS Status: Chronic Qualifiers: Chronic kidney disease stage: stage 2 (mild) (4) Dyslipidemia Code(s): E78.5 - HYPERLIPIDEMIA, UNSPECIFIED Status: Chronic (5) GERD (gastroesophageal reflux disease) Code(s): K21.9 - GASTRO-ESOPHAGEAL REFLUX DISEASE WITHOUT ESOPHAGITIS Status: Chronic (6) Gout Code(s): M10.9 - GOUT, UNSPECIFIED Status: Chronic (7) Hypertension Code(s): I10 - ESSENTIAL (PRIMARY) HYPERTENSION Status: Chronic (8) Lactic acidosis Code(s): E87.2 - ACIDOSIS Status: Resolved (9) Obesity (BMI 30.0-34.9) Code(s): E66.9 - OBESITY, UNSPECIFIED Status: Chronic (10) PAD (peripheral artery disease) Code(s): I73.9 - PERIPHERAL VASCULAR DISEASE, UNSPECIFIED Status: Chronic (11) Multiple vessel coronary artery disease Code(s): I25.10 - ATHSCL HEART DISEASE OF [place] CORONARY ARTERY W/O ANG PCTRS Status: Acute Comment: s/p CABG (12) Tobacco abuse Code(s): Z72.0 - TOBACCO USE Status: Chronic - Plan cont current plan of care * medication reviewed as below * symptomatic treatment * continue lasix * 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 Review of Systems - Review of Systems Eyes: negative: Pain, Vision Change, Conjunctivae Inflammation, Eyelid Inflammation, Redness, Other ENT: negative: Ear Pain, Ear Discharge, Nose Pain, Nose Discharge, Nose Congestion, Mouth Pain, Mouth Swelling, Throat Pain, Throat Swelling, Other Respiratory: negative: Cough, Dry, Shortness of Breath, Hemoptysis, SOB with Excertion, Pleuritic Pain, Sputum, Wheezing Cardiovascular: negative: chest pain, palpitations, orthopnea, paroxysmal nocturnal dyspnea, edema, light headedness, other Gastrointestinal: negative: Nausea, Vomiting, Abdominal Pain, Diarrhea, Constipation, Melena, Hematochezia, Other Genitourinary: negative: Dysuria, Frequency, Incontinence, Hematuria, Retention , Other Musculoskeletal: negative: Neck Pain, Shoulder Pain, Arm Pain, Back Pain, Hand Pain, Leg Pain, Foot Pain, Other Skin: negative: Rash, Lesions, Cade, Bruising, Other - Medications/Allergies Allergies/Adverse Reactions: Allergies Allergy/AdvReac Type Severity Reaction Status Date / Time No Known Allergies Allergy Unverified 08/01/17 20:09 Medications: Current Medications Acetaminophen (Tylenol) 650 mg PO Q4H PRN PRN Reason: Headache/Fever or Mild Pain Hydrocodone Bitart/Acetaminophen ([place] 5/325) 1 tab PO Q4H PRN PRN Reason: Moderate Pain (4-6) Last Admin: 08/13/17 13:03 Dose: 1 tab Hydrocodone Bitart/Acetaminophen ([place] 5/325) 2 tab PO Q4H PRN PRN Reason: Severe Pain (7-10) Last Admin: 08/13/17 20:46 Dose: 2 tab Al Hydroxide/Mg Hydroxide (Maalox) 30 ml PO Q4H PRN PRN Reason: Indigestion Albuterol Sulfate (Ventolin) 2.5 mg NEB Q6H PRN PRN Reason: Dyspnea/Wheezing/SOB Last Admin: 08/13/17 06:18 Dose: 2.5 mg Artificial Tears (Tears Naturale) 0 drop EA EYE PRN PRN PRN Reason: Dry Eyes Aspirin (Aspirin Chewable) 81 mg PO DAILY [facility] Last Admin: 08/14/17 08:49 Dose: 81 mg Atorvastatin Calcium (Lipitor) 40 mg PO [facility] Last Admin: 08/13/17 20:36 Dose: 40 mg Bisacodyl (Dulcolax) 10 mg PO Q12H PRN PRN Reason: Constipation Bisacodyl (Dulcolax) 10 mg [place] Q12H PRN PRN Reason: Constipation Dextrose/Water (Dextrose 50%) 25 gm SLOW IVP PRN PRN PRN Reason: Hypoglycemia Furosemide (Lasix) 40 mg PO DAILY[facility] Last Admin: 08/14/17 08:50 Dose: 40 mg Glucagon (Glucagon) 1 mg IM PRN PRN PRN Reason: Hypoglycemia Guaifenesin (Robitussin Sf) 200 mg PO Q4H PRN PRN Reason: Cough Guaifenesin/Dextromethorphan (Robitussin Dm) 15 ml PO Q4H PRN PRN Reason: Cough Last Admin: 08/12/17 04:36 Dose: 15 ml Hydrocortisone Sodium Succinate (Hydrocortisone 1%) 0 gm TOP BID [facility] Last Admin: 08/14/17 08:55 Dose: 1.5 gm Dextrose/Water (D5w) 1,000 mls @ 0 mls/hr IV .Q0M PRN; As Directed PRN Reason: Hypoglycemia Insulin Human Regular (Humulin R) 0 units SC .MODERATE SLIDING SC PRN; Protocol PRN Reason: MODERATE SLIDING SCALE Ipratropium [place] (Atrovent Hfa) 1 puff INH Q6H PRN PRN Reason: SOB &/or Wheezing Loperamide HCl (Imodium) 2 mg PO PRN PRN PRN Reason: Diarrhea/Loose Stools Magnesium Hydroxide (Milk Of Magnesium) 30 ml PO DAILYPRN PRN PRN Reason: Constipation Metformin HCl (Glucophage Xr) 1,000 mg PO [facility] Last Admin: 08/14/17 08:49 Dose: 1,000 mg Metoprolol Succinate (Toprol Xl) 25 mg PO DAILY [facility] Last Admin: 08/14/17 08:49 Dose: 25 mg Mineral Oil/White Petrolatum (Eucerin Cream) 0 gm TOP BIDPRN PRN PRN Reason: Dry Skin Nitroglycerin (Nitrostat) 0.4 mg SL Q5MIN PRN PRN Reason: Chest Pain Ondansetron HCl (Zofran) 4 mg IVP Q6H PRN PRN Reason: Nausea/Vomiting Ondansetron HCl (Zofran Odt) 4 mg PO Q6H PRN PRN Reason: Nausea/Vomiting Pantoprazole Sodium (Protonix) 40 mg PO DAILY [facility] Last Admin: 08/14/17 08:50 Dose: 40 mg Phenol (Chloraseptic [place] 180 Ml Bot) 0 ml PO PRN PRN PRN Reason: Sore Throat Pregabalin (Lyrica) 100 mg PO QAM [facility] Last Admin: 08/14/17 08:50 Dose: 100 mg Sodium Chloride (Flush - Normal Saline) 10 ml IVF PRN PRN PRN Reason: Saline Flush Last Admin: 08/12/17 20:45 Dose: 10 ml Sodium Chloride ([place] Nasal [place] 0.65%) 0 ml EA NARE QIDPRN PRN PRN Reason: Nasal Congestion
--- NOTE | 2017-08-14 10:37 | RAD ---
CHEST TWO VIEWS: Comparison: 08-11-17 History: Follow up pleural effusion. FINDINGS: Improved aeration of the left lung. Residual interstitial opacities do remain suggesting areas of sca r/atelectasis. Lungs continue to be hyperinflated. No pneumothorax. IMPRESSION: 1. Interstitial opacities due to scar/atelectasis. 2. Interval reduction of pleural effusion. POS: [facility]
[2017-08-14] MEDS: HYDROcodone/Acetaminophen 5/325 mg Tablet PO PRN ×2 (12:21→16:40)
--- NOTE | 2017-08-14 12:22 | PRG ---
DATE OF SERVICE: 08/14/2017 Mariana Olmedo was evaluated sitting at the bedside. She was in no distress. She says she had some neuropathy pain that she had prior to admission, but no other complaints. PHYSICAL EXAMINATION: VITAL SIGNS: She is afebrile, heart rate 72, respiratory rate 14, oximetry is in the low to mid 90s on room air. Blood pressure 116/55. LUNGS: Clear. HEART: Regular rhythm. ABDOMEN: Soft. IMPRESSION: Status post coronary bypass grafting, clinically stable. We will continue to follow with the other physicians caring for her.
[2017-08-14] MEDS: Atorvastatin Calcium 40 MG TAB PO SCH (21:57)
[2017-08-15] MEDS: HYDROcodone/Acetaminophen 5/325 mg Tablet PO PRN ×2 (01:06→21:17)
[2017-08-15 07:27] LABS: #Basophils 0.1 thou/uL (0.0-0.2); #Eosinphils 2.2 thou/uL (0.0-0.7); #Monocytes 1.3 thou/uL (0.11-0.59); #Neutrophils 6.9 thou/uL (1.40-6.50); %Basophils 0.5 % (0.0-1.0); %Eosinophils 16.4 % (0.0-10.0); %Lymphocytes 21.9 % (21.0-51.0); %Monocytes 9.5 % (0.0-10.0); %Neutrophils 51.7 % (42.0-75.0); Hemoglobin 9.9 g/dL (12.0-16.0); Mean Corpuscular HGB CONC 31.5 g/dL (32.0-36.0); Mean Corpuscular Hemoglobin 29.1 pg (27.0-31.0); Mean Corpuscular Volume 92.6 fl (81.0-99.0); Mean Platelet Volume 8.1 fL (7.4-10.4); Platelet Count 335 thou/uL (130-400); RBC Distribution Width 14.2 % (11.5-14.5); Red Blood Cell (RBC) Count 3.38 mill/uL (4.20-5.40); White Blood Cell (WBC) Count 13.4 thou/uL (4.8-10.8)
[2017-08-15 07:32] LABS: Anion Gap 18 mmol/L (10-20); BUN (Urea Nitrogen) 33 mg/dL (9.8-20.1); Calc. Creatinine Clearance 48 mL/min (70-130); Calcium 9.9 mg/dL (7.8-10.44); Carbon Dioxide 25 mmol/L (23-31); Chloride 98 mmol/L (98-107); Estimated GFR-MDRD 41; Glucose 128 mg/dL (80-115); Potassium 3.8 mmol/L (3.5-5.1); Sodium 137 mmol/L (136-145)
[2017-08-15] MEDS: Furosemide 40 MG TAB PO SCH (08:52)
[2017-08-15] MEDS: metFORMIN XR 500 MG TAB PO SCH (08:55)
[2017-08-15] MEDS: Pregabalin 50 MG CAP PO SCH (08:56)
--- NOTE | 2017-08-15 09:12 | PRG ---
DATE OF SERVICE: 08/15/2017 SUBJECTIVE: She is awake, alert, in no distress. She denies any shortness of breath. OBJECTIVE: VITAL SIGNS: Temperature is 97.7, pulse 87, respiration rate 18, O2 sat 91% on room air, blood press ure 109/55. HEENT: Unremarkable. NECK: No JVD. CHEST: Clear. CARDIAC: S1 and S2 regular. ABDOMEN: Soft. EXTREMITIES: No edema. ASSESSMENT: 1. Status post coronary artery bypass grafting surgery. 2. Improved pulmonary edema. RECOMMENDATIONS: She is probably ready for rehab. Based on her kidney function, her diuretics need to be decreased to about 20 mg a day of Lasix.
[2017-08-15] MEDS ORDERED: Furosemide 20 MG TAB PO SCH (09:15)
--- NOTE | 2017-08-15 09:26 | PDOC.PN ---
- Subjective Encounter Start Date: 08/15/17 Encounter Start Time: 08:00 Patient seen and examined for chf. No new complaints. No overnight events - Objective Resuscitation Status: Resuscitation Status FULL:Full Resuscitation MAR Reviewed: Yes Vital Signs & Weight: Vital Signs (12 hours) Temp Pulse Resp BP Pulse Ox 08/15/17 08:00 97.7 F 77 18 08/15/17 07:55 97.7 F 77 18 109/55 L 91 L 08/15/17 03:47 97.7 F 79 19 117/55 L 96 08/14/17 23:44 97 Weight Admit Weight 188 lb 5 oz Weight 183 lb Most Recent Monitor Data Heart Rate from ECG 83 NIBP 110/60 NIBP BP-Mean 83 Respiration from ECG 18 SpO2 91 I&O: 08/14/17 08/15/17 08/16/17 06:59 06:59 06:59 Intake Total 680 980 Output Total 1000 1650 Balance -320 -670 Result Diagrams: 08/15/17 07:04 08/15/17 07:04 Additional Labs: Accuchecks 08/15/17 08/14/17 08/14/17 05:45 20:49 16:31 POC Glucose 137 H 142 H 129 H 08/14/17 10:47 POC Glucose 151 H EKG Reviewed by me: Yes (nsr) Phys Exam - Physical Examination Constitutional: NAD HEENT: PERRLA, moist MMs, sclera anicteric Neck: no JVD, supple Respiratory: no wheezing, no rales, no rhonchi Cardiovascular: RRR, no significant murmur, no rub Gastrointestinal: soft, non-tender, no distention, positive bowel sounds Musculoskeletal: no edema, pulses present Neurological: non-focal, normal sensation, moves all 4 limbs Lymphatic: no nodes Psychiatric: normal affect, A&O x 3 Skin: no rash, normal turgor Dx/Plan (1) NSTEMI (non-ST elevated myocardial infarction) Code(s): I21.4 - NON-ST ELEVATION (NSTEMI) MYOCARDIAL INFARCTION Status: Acute (2) Acute CHF Code(s): I50.9 - HEART FAILURE, UNSPECIFIED Status: Acute Qualifiers: Heart failure type: unspecified Qualified Code(s): I50.9 - Heart failure, unspecified Comment: ECHO with normal EF 55-60% (3) Diabetes type 2, controlled Code(s): E11.9 - TYPE 2 DIABETES MELLITUS WITHOUT COMPLICATIONS Status: Chronic Qualifiers: Chronic kidney disease stage: stage 2 (mild) (4) Dyslipidemia Code(s): E78.5 - HYPERLIPIDEMIA, UNSPECIFIED Status: Chronic (5) GERD (gastroesophageal reflux disease) Code(s): K21.9 - GASTRO-ESOPHAGEAL REFLUX DISEASE WITHOUT ESOPHAGITIS Status: Chronic (6) Gout Code(s): M10.9 - GOUT, UNSPECIFIED Status: Chronic (7) Hypertension Code(s): I10 - ESSENTIAL (PRIMARY) HYPERTENSION Status: Chronic (8) Lactic acidosis Code(s): E87.2 - ACIDOSIS Status: Resolved (9) Obesity (BMI 30.0-34.9) Code(s): E66.9 - OBESITY, UNSPECIFIED Status: Chronic (10) PAD (peripheral artery disease) Code(s): I73.9 - PERIPHERAL VASCULAR DISEASE, UNSPECIFIED Status: Chronic (11) Multiple vessel coronary artery disease Code(s): I25.10 - ATHSCL HEART DISEASE OF [place] CORONARY ARTERY W/O ANG PCTRS Status: Acute Comment: s/p CABG (12) Tobacco abuse Code(s): Z72.0 - TOBACCO USE Status: Chronic - Plan cont current plan of care, respiratory therapy * medication reviewed as below * symptomatic treatment * today lasix reduced * on discharge she will not need lasix * discharge to rehab if possible, if not then home health. Review of Systems - Review of Systems ENT: negative: Ear Pain, Ear Discharge, Nose Pain, Nose Discharge, Nose Congestion, Mouth Pain, Mouth Swelling, Throat Pain, Throat Swelling, Other Respiratory: negative: Cough, Dry, Shortness of Breath, Hemoptysis, SOB with Excertion, Pleuritic Pain, Sputum, Wheezing Cardiovascular: negative: chest pain, palpitations, orthopnea, paroxysmal nocturnal dyspnea, edema, light headedness, other Gastrointestinal: negative: Nausea, Vomiting, Abdominal Pain, Diarrhea, Constipation, Melena, Hematochezia, Other Genitourinary: negative: Dysuria, Frequency, Incontinence, Hematuria, Retention , Other Musculoskeletal: negative: Neck Pain, Shoulder Pain, Arm Pain, Back Pain, Hand Pain, Leg Pain, Foot Pain, Other Skin: negative: Rash, Lesions, Cade, Bruising, Other - Medications/Allergies Allergies/Adverse Reactions: Allergies Allergy/AdvReac Type Severity Reaction Status Date / Time No Known Allergies Allergy Unverified 08/01/17 20:09 Medications: Current Medications Acetaminophen (Tylenol) 650 mg PO Q4H PRN PRN Reason: Headache/Fever or Mild Pain Hydrocodone Bitart/Acetaminophen ([place] 5/325) 1 tab PO Q4H PRN PRN Reason: Moderate Pain (4-6) Last Admin: 08/14/17 12:21 Dose: 1 tab Hydrocodone Bitart/Acetaminophen ([place] 5/325) 2 tab PO Q4H PRN PRN Reason: Severe Pain (7-10) Last Admin: 08/15/17 01:06 Dose: 2 tab Al Hydroxide/Mg Hydroxide (Maalox) 30 ml PO Q4H PRN PRN Reason: Indigestion Albuterol Sulfate (Ventolin) 2.5 mg NEB Q6H PRN PRN Reason: Dyspnea/Wheezing/SOB Last Admin: 08/13/17 06:18 Dose: 2.5 mg Artificial Tears (Tears Naturale) 0 drop EA EYE PRN PRN PRN Reason: Dry Eyes Aspirin (Aspirin Chewable) 81 mg PO DAILY [facility] Last Admin: 08/15/17 08:55 Dose: 81 mg Atorvastatin Calcium (Lipitor) 40 mg PO HS [facility] Last Admin: 08/14/17 21:57 Dose: 40 mg Bisacodyl (Dulcolax) 10 mg PO Q12H PRN PRN Reason: Constipation Bisacodyl (Dulcolax) 10 mg [place] Q12H PRN PRN Reason: Constipation Dextrose/Water (Dextrose 50%) 25 gm SLOW IVP PRN PRN PRN Reason: Hypoglycemia Furosemide (Lasix) 20 mg PO DAILY-AC [facility] Furosemide (Lasix) 20 mg PO 914 [facility] Stop: 08/15/17 11:00 Glucagon (Glucagon) 1 mg IM PRN PRN PRN Reason: Hypoglycemia Guaifenesin (Robitussin Sf) 200 mg PO Q4H PRN PRN Reason: Cough Guaifenesin/Dextromethorphan (Robitussin Dm) 15 ml PO Q4H PRN PRN Reason: Cough Last Admin: 08/12/17 04:36 Dose: 15 ml Hydrocortisone Sodium Succinate (Hydrocortisone 1%) 0 gm TOP BID [facility] Last Admin: 08/14/17 21:57 Dose: 1.5 gm Dextrose/Water (D5w) 1,000 mls @ 0 mls/hr IV .Q0M PRN; As Directed PRN Reason: Hypoglycemia Insulin Human Regular (Humulin R) 0 units SC .MODERATE SLIDING SC PRN; Protocol PRN Reason: MODERATE SLIDING SCALE Ipratropium [place] (Atrovent Hfa) 1 puff INH Q6H PRN PRN Reason: SOB &/or Wheezing Loperamide HCl (Imodium) 2 mg PO PRN PRN PRN Reason: Diarrhea/Loose Stools Magnesium Hydroxide (Milk Of Magnesium) 30 ml PO DAILYPRN PRN PRN Reason: Constipation Metformin HCl (Glucophage Xr) 1,000 mg PO [facility] Last Admin: 08/15/17 08:55 Dose: 1,000 mg Metoprolol Succinate (Toprol Xl) 25 mg PO DAILY [facility] Last Admin: 08/15/17 08:55 Dose: 25 mg Mineral Oil/White Petrolatum (Eucerin Cream) 0 gm TOP BIDPRN PRN PRN Reason: Dry Skin Nitroglycerin (Nitrostat) 0.4 mg SL Q5MIN PRN PRN Reason: Chest Pain Ondansetron HCl (Zofran) 4 mg IVP Q6H PRN PRN Reason: Nausea/Vomiting Ondansetron HCl (Zofran Odt) 4 mg PO Q6H PRN PRN Reason: Nausea/Vomiting Pantoprazole Sodium (Protonix) 40 mg PO DAILY [facility] Last Admin: 08/15/17 08:55 Dose: 40 mg Phenol (Chloraseptic [place] 180 Ml Bot) 0 ml PO PRN PRN PRN Reason: Sore Throat Pregabalin (Lyrica) 100 mg PO [facility] Last Admin: 08/15/17 08:56 Dose: 100 mg Sodium Chloride (Flush - Normal Saline) 10 ml IVF PRN PRN PRN Reason: Saline Flush Last Admin: 08/12/17 20:45 Dose: 10 ml Sodium Chloride ([place] Nasal [place] 0.65%) 0 ml EA NARE QIDPRN PRN PRN Reason: Nasal Congestion
[2017-08-15] MEDS: Hydrocortisone 1% Cream 1.5 GM Packet TOP SCH ×2 (10:33→21:15)
[2017-08-15] MEDS ORDERED: Iopamidol 370 76% 100 ML VIAL ONE (11:02)
--- NOTE | 2017-08-15 12:01 | DIS ---
DATE OF ADMISSION: 08/01/2017 DATE OF DISCHARGE: 08/15/2017 PRINCIPAL DIAGNOSES: Coronary artery disease with non-ST elevation myocardial infarction. SECONDARY DIAGNOSES: Hypertension, diabetes, lumbar disk disease with radiculopathy and obstructive sleep apnea. PROCEDURES PERFORMED: Cardiac catheterization 08/01/2017, coronary artery bypass grafting x3 with le ft internal mammary artery to the distal LAD and reverse saphenous vein grafts from the aorta to the diagonal into the first obtuse marginal on 08/04/2017. HISTORY OF PRESENT ILLNESS/HOSPITAL COURSE: The patient is a 66-year-old black woman with hypertensi on and diabetes who for about 2 months had been having daily symptoms that she attributed to heartbur n. She presented when she had a severe persistent episode that prompted calling her neighbors for he lp. Her neighbors in turn called EMS who felt her clinical situation warranted transport to the near est available cardiac facility. On arrival, she had ST depressions in multiple leads and her troponi ns were positive. Cardiac catheterization demonstrated a left dominant system with a hazy lesion of the distal left main extending into the ostium of the LAD as well as high grade lesions in the circum flex proper. She underwent surgical revascularization and although she began waking up the evening o f surgery it was not until the morning of postoperative day #2 that she was sufficiently awake, alert , and strong to extubate. She was transferred to the telemetry unit on the morning of postoperative day 3, but problems with maintaining O2 sats with simply nasal cannula oxygen prompted transferring h er to the Intermediate Care Unit that evening. She was maintained on a BiPAP mask and aggressively d iuresed over the next couple of days and when she was maintaining adequate oxygenation off of her BiP AP mask, she was transferred back to telemetry. Her level of activity has been somewhat marginal. I t has gradually improved and she has been weaned from her oxygen. She does not really qualify for re hab, but she lives alone. The caser have worked out a compromise that allows her visits with home health and home care to provide the services that family would otherwise provide if they were a vailable. She is now being discharged home on postoperative day #10 doing well. She has been writte n a prescription for Vicodin as needed for pain and is being sent home with Lipitor 40 mg a day, baby aspirin a day, lisinopril 5 mg a day, Toprol-XL 25 mg a day. We will plan on seeing her in the offi ce in roughly 2 weeks' time. Follow up with primary care, Dr. Servin and Cardiology, Dr. Stuart will be per them.
[2017-08-15 12:15] VITALS: BMI 33.5
[2017-08-15 13:04] LABS: #Basophils 0.1 thou/uL (0.0-0.2); #Eosinphils 2.3 thou/uL (0.0-0.7); #Lymphocytes 2.7 thou/uL (1.20-3.40); #Monocytes 1.4 thou/uL (0.11-0.59); #Neutrophils 7.8 thou/uL (1.40-6.50); %Basophils 0.7 % (0.0-1.0); %Eosinophils 16.1 % (0.0-10.0); %Monocytes 9.6 % (0.0-10.0); %Neutrophils 54.5 % (42.0-75.0); Hemoglobin 9.6 g/dL (12.0-16.0); Mean Corpuscular HGB CONC 32.5 g/dL (32.0-36.0); Mean Corpuscular Hemoglobin 29.9 pg (27.0-31.0); Platelet Count 322 thou/uL (130-400); RBC Distribution Width 14.4 % (11.5-14.5); Red Blood Cell (RBC) Count 3.21 mill/uL (4.20-5.40); White Blood Cell (WBC) Count 14.2 thou/uL (4.8-10.8)
--- NOTE | 2017-08-15 13:10 | PRG ---
DATE OF SERVICE: 08/15/2017 Edis rhodes was called for this particular patient. Nurse noticed that her speech was slurred and she was worried about stroke-like symptoms and that is why edis rhodes was called. I saw this patient be dside. She was not having any pronator drift. Her speech was also to me was normal. I could not ap preciate any facial asymmetry. Patient appears to be baseline for me at this point, but as a stroke protocol, we will get CT brain to rule out any intracranial process and today we will cancel her disc harge and we will just observe neurologically for another [address] brain. Otherwis e, her vitals and her examination is unchanged from this morning.
[2017-08-15 13:14] LABS: BHCG - Serum Negative (NEGATIVE); Pregs Control Background? CLEAR/WHITE (CLR/WHITE); Pregs Control Bar Appear? YES (CONTROL BAR)
[2017-08-15 13:20] LABS: ALT (SGPT) 17 U/L (8-55); AST (SGOT) 21 U/L (5-34); Albumin 3.9 g/dL (3.4-4.8); Alkaline Phosphatase 156 U/L (40-150); Anion Gap 16 mmol/L (10-20); BUN (Urea Nitrogen) 32 mg/dL (9.8-20.1); Bilirubin, Total 0.8 mg/dL (0.2-1.2); CK (CPK) 103 U/L (29-168); Calc. Creatinine Clearance 54 mL/min (70-130); Calcium 9.7 mg/dL (7.8-10.44); Carbon Dioxide 28 mmol/L (23-31); Chloride 98 mmol/L (98-107); Estimated GFR-MDRD 47; Globulin 2.9 g/dL (2.4-3.5); Glucose 131 mg/dL (80-115); Potassium 4.3 mmol/L (3.5-5.1); Protein, Total 6.8 g/dL (6.0-8.3); Sodium 138 mmol/L (136-145)
[2017-08-15 13:24] LABS: CKMB 0.7 ng/mL (0-6.6); Troponin I 0.275 ng/mL (< 0.028)
[2017-08-15 13:32] LABS: PTT 27.7 SEC (22.9-36.1); Prothrombin Time 13.3 SEC (12.0-14.7)
--- NOTE | 2017-08-15 14:09 | CT ---
CT HEAD WITHOUT CONTRAST: Date: 08-15-17 Comparison: None. History: Slurred speech which began at 11:30 a.m. Technique: Serial axial CT imaging at 5 mm intervals from vertex through skull base without contrast. FINDINGS: The imaged paranasal sinuses/mastoid air cells are well aerated. There is atherosclerotic calcificati on of the cavernous carotid arteries and the distal vertebral arteries. There is no intracranial hemo rrhage, midline shift, or mass effect seen. IMPRESSION: Atherosclerotic disease. No intracranial hemorrhage. Dr. Cedeno was made aware of these results at 1:08 p.m. 08-15-17. Code CR POS: [facility]
--- NOTE | 2017-08-15 15:08 | CT ---
CONTRAST ENHANCED CTA CAROTID ARTERIES AND INTRACRANIAL CTA: Date: 08/15/17 HISTORY: Stroke. TECHNIQUE: Contrast enhanced CTA intracranial and carotid CTA performed. 2D and 3D reconstructed images performe d on an independent 3D workstation. FINDINGS: Images demonstrate some areas of scarring seen in the left upper lobe. There is some heterogeneity no alex in the left thyroid lobe, possibly representing a left thyroid lesion. Correlate with thyroid son ography. Some atherosclerotic plaque is seen in the distal left common carotid artery compatible with approxim ately 50% distal left CCA stenosis. A small area of approximately 2.0 mm ulceration seen in the proxi mal right ICA. The right and left vertebral arteries are patent. Intracranial CTA: Normal flow seen in the right and left anterior cerebral artery, middle cerebral artery, as well as p osterior cerebral artery. IMPRESSION: 1. Approximately 50% distal left CCA stenosis. 2. Area of small ulceration in the proximal portion of the right ICA without evidence of high grade stenosis seen. Findings discussed with Dr. Cedeno at 1327 hours on 08/15/17. CODE CR.
[2017-08-15 16:02] LABS: Cocaine Metabolite Screen Not Detected (NotDetected); Medtox Reader # READER 4; Methamphetamine Not Detected (NotDetected); Opiate Screen Detected (NotDetected); Phencyclidine (PCP) Not Detected (NotDetected); THC/Cannabinoid Screen Not Detected (NotDetected)
[2017-08-15 16:03] LABS: Amphetamine Not Detected (NotDetected); Barbiturates Screen Not Detected (NotDetected); Benzodiazepine Screen Not Detected (NotDetected); Medtox Control Line Valid? VALID (VALID); Methadone Not Detected (NotDetected); Oxycodone Screen Not Detected (NotDetected); Tricyclic Screen Not Detected (NotDetected)
[2017-08-15] MEDS: Atorvastatin Calcium 40 MG TAB PO SCH (21:15)
--- NOTE | 2017-08-15 23:54 | EKG ---
Test Reason : CODE GREEN Blood Pressure : / mmHG Vent. Rate : 081 BPM Atrial Rate : 081 BPM P-R Int : 164 ms QRS Dur : 086 ms QT Int : 436 ms P-R-T Axes : 053 041 116 degrees QTc Int : 506 ms Normal sinus rhythm Inferior infarct (cited on or before 04-AUG-2017) T wave abnormality, consider lateral ischemia * ACUTE ND * Consider right ventricular involvement in acute inferior infarct Abnormal ECG When compared with ECG of 04-AUG-2017 14:17, ST no longer elevated in Anterior leads T wave amplitude has increased in Inferior leads T wave inversion now evident in Anterior leads Confirmed by Meredith GUTIERREZ ([id number]) on 08/15/2017 11:54:18 PM Referred By: LICO Confirmed By:Meredith GUTIERREZ
[2017-08-16] MEDS ORDERED: Furosemide 20 MG TAB PO SCH (07:30)
[2017-08-16] MEDS: Albuterol Sulfate 2.5 mg/3 ml Neb NEB PRN (07:55)
[2017-08-16] MEDS ORDERED: Clopidogrel Bisulfate 75 MG TAB PO SCH (09:00)
--- NOTE | 2017-08-16 09:05 | PRG ---
DATE OF SERVICE: 08/16/2017 The patient is doing okay. Stroke alert was called on her last night for slurred speech. Speech con tinues to seem a little slurred to me today compared to what I recall from the past. She does not ap pear to be in distress. PHYSICAL EXAMINATION: HEENT: Unremarkable. NECK: No JVD. LUNGS: Clear. CARDIAC: S1 and S2 regular. ABDOMEN: Soft. EXTREMITIES: No edema. LABORATORY: No new labs were done today. ASSESSMENT: 1. Status post coronary artery bypass grafting surgery. 2. Very slow to resolve pulmonary edema. RECOMMENDATIONS: Increase activity as tolerated with hopeful hospital discharge soon.
[2017-08-16] MEDS: Pregabalin 50 MG CAP PO SCH (09:08)
[2017-08-16] MEDS: metFORMIN XR 500 MG TAB PO SCH (09:09)
[2017-08-16] MEDS: Hydrocortisone 1% Cream 1.5 GM Packet TOP SCH (09:10)
--- NOTE | 2017-08-16 10:33 | PDOC.PN ---
- Subjective Encounter Start Date: 08/16/17 Encounter Start Time: 07:50 Patient seen and examined. No new complaints. No overnight events no neurological event afterward, today had mild back pain with cardiac rehab, no fever - Objective Resuscitation Status: Resuscitation Status FULL:Full Resuscitation MAR Reviewed: Yes Vital Signs & Weight: Vital Signs (12 hours) Temp Pulse Resp BP BP Pulse Ox 08/16/17 07:55 72 16 100 08/16/17 04:00 98.3 F 79 17 110/54 L 96 08/16/17 00:00 98.3 F 79 14 119/55 L Weight Admit Weight 188 lb 5 oz Weight 171 lb 3.2 oz Most Recent Monitor Data Heart Rate from ECG 83 NIBP 110/60 NIBP BP-Mean 83 Respiration from ECG 18 SpO2 91 I&O: 08/15/17 08/16/17 08/17/17 06:59 06:59 06:59 Intake Total 980 1330 Output Total 1650 1800 Balance -670 -470 Result Diagrams: 08/15/17 12:52 08/15/17 12:52 Additional Labs: Accuchecks 08/16/17 08/15/17 08/15/17 06:11 21:03 16:49 POC Glucose 154 H 184 H 121 H 08/15/17 08/15/17 12:55 11:49 POC Glucose 128 H 180 H EKG Reviewed by me: Yes (nsr) Phys Exam - Physical Examination Constitutional: NAD HEENT: PERRLA, moist MMs, sclera anicteric Neck: no JVD, supple Respiratory: no wheezing, no rales, no rhonchi Cardiovascular: RRR, no significant murmur, no rub Gastrointestinal: soft, non-tender, no distention, positive bowel sounds no CVA tenderness Musculoskeletal: no edema, pulses present Neurological: non-focal, normal sensation, moves all 4 limbs Lymphatic: no nodes Psychiatric: normal affect, A&O x 3 Skin: no rash, normal turgor Dx/Plan (1) NSTEMI (non-ST elevated myocardial infarction) Code(s): I21.4 - NON-ST ELEVATION (NSTEMI) MYOCARDIAL INFARCTION Status: Acute (2) Acute CHF Code(s): I50.9 - HEART FAILURE, UNSPECIFIED Status: Acute Qualifiers: Heart failure type: unspecified Qualified Code(s): I50.9 - Heart failure, unspecified Comment: ECHO with normal EF 55-60% (3) Diabetes type 2, controlled Code(s): E11.9 - TYPE 2 DIABETES MELLITUS WITHOUT COMPLICATIONS Status: Chronic Qualifiers: Chronic kidney disease stage: stage 2 (mild) (4) Dyslipidemia Code(s): E78.5 - HYPERLIPIDEMIA, UNSPECIFIED Status: Chronic (5) GERD (gastroesophageal reflux disease) Code(s): K21.9 - GASTRO-ESOPHAGEAL REFLUX DISEASE WITHOUT ESOPHAGITIS Status: Chronic (6) Gout Code(s): M10.9 - GOUT, UNSPECIFIED Status: Chronic (7) Hypertension Code(s): I10 - ESSENTIAL (PRIMARY) HYPERTENSION Status: Chronic (8) Lactic acidosis Code(s): E87.2 - ACIDOSIS Status: Resolved (9) Obesity (BMI 30.0-34.9) Code(s): E66.9 - OBESITY, UNSPECIFIED Status: Chronic (10) PAD (peripheral artery disease) Code(s): I73.9 - PERIPHERAL VASCULAR DISEASE, UNSPECIFIED Status: Chronic (11) Multiple vessel coronary artery disease Code(s): I25.10 - ATHSCL HEART DISEASE OF [place] CORONARY ARTERY W/O ANG PCTRS Status: Acute Comment: s/p CABG (12) Tobacco abuse Code(s): Z72.0 - TOBACCO USE Status: Chronic - Plan cont current plan of care * pt did not qualify for rehab * now ok to discharge to home with home health * medication reviewed as below * symptomatic treatment * stable medically for discharge today if ride available * increase activity. Review of Systems - Review of Systems Constitutional: negative: fever, chills, sweats, weakness, malaise, other Eyes: negative: Pain, Vision Change, Conjunctivae Inflammation, Eyelid Inflammation, Redness, Other ENT: negative: Ear Pain, Ear Discharge, Nose Pain, Nose Discharge, Nose Congestion, Mouth Pain, Mouth Swelling, Throat Pain, Throat Swelling, Other Respiratory: negative: Cough, Dry, Shortness of Breath, Hemoptysis, SOB with Excertion, Pleuritic Pain, Sputum, Wheezing Cardiovascular: negative: chest pain, palpitations, orthopnea, paroxysmal nocturnal dyspnea, edema, light headedness, other Gastrointestinal: negative: Nausea, Vomiting, Abdominal Pain, Diarrhea, Constipation, Melena, Hematochezia, Other Genitourinary: negative: Dysuria, Frequency, Incontinence, Hematuria, Retention , Other Musculoskeletal: Back Pain. negative: Neck Pain, Shoulder Pain, Arm Pain, Hand Pain, Leg Pain, Foot Pain, Other Skin: negative: Rash, Lesions, Cade, Bruising, Other Neurological: negative: Weakness, Numbness, Incoordination, Change in Speech, Confusion, Seizures, Other - Medications/Allergies Allergies/Adverse Reactions: Allergies Allergy/AdvReac Type Severity Reaction Status Date / Time No Known Allergies Allergy Unverified 08/01/17 20:09 Medications: Current Medications Acetaminophen (Tylenol) 650 mg PO Q4H PRN PRN Reason: Headache/Fever or Mild Pain Last Admin: 08/15/17 17:48 Dose: 650 mg Hydrocodone Bitart/Acetaminophen ([place] 5/325) 1 tab PO Q4H PRN PRN Reason: Moderate Pain (4-6) Last Admin: 08/15/17 21:17 Dose: 1 tab Hydrocodone Bitart/Acetaminophen ([place] 5/325) 2 tab PO Q4H PRN PRN Reason: Severe Pain (7-10) Last Admin: 08/15/17 01:06 Dose: 2 tab Al Hydroxide/Mg Hydroxide (Maalox) 30 ml PO Q4H PRN PRN Reason: Indigestion Albuterol Sulfate (Ventolin) 2.5 mg NEB Q6H PRN PRN Reason: Dyspnea/Wheezing/SOB Last Admin: 08/16/17 07:55 Dose: 2.5 mg Artificial Tears (Tears Naturale) 0 drop EA EYE PRN PRN PRN Reason: Dry Eyes Aspirin (Aspirin Chewable) 81 mg PO DAILY [facility] Last Admin: 08/16/17 09:09 Dose: 81 mg Atorvastatin Calcium (Lipitor) 40 mg PO HS [facility] Last Admin: 08/15/17 21:15 Dose: 40 mg Bisacodyl (Dulcolax) 10 mg PO Q12H PRN PRN Reason: Constipation Bisacodyl (Dulcolax) 10 mg [place] Q12H PRN PRN Reason: Constipation Clopidogrel Bisulfate (Plavix) 75 mg PO DAILY [facility] Last Admin: 08/16/17 09:08 Dose: 75 mg Dextrose/Water (Dextrose 50%) 25 gm SLOW IVP PRN PRN PRN Reason: Hypoglycemia Furosemide (Lasix) 20 mg PO DAILY-AC [facility] Last Admin: 08/16/17 09:09 Dose: 20 mg Glucagon (Glucagon) 1 mg IM PRN PRN PRN Reason: Hypoglycemia Guaifenesin (Robitussin Sf) 200 mg PO Q4H PRN PRN Reason: Cough Guaifenesin/Dextromethorphan (Robitussin Dm) 15 ml PO Q4H PRN PRN Reason: Cough Last Admin: 08/12/17 04:36 Dose: 15 ml Hydrocortisone Sodium Succinate (Hydrocortisone 1%) 0 gm TOP BID [facility] Last Admin: 08/16/17 09:10 Dose: 1 gm Dextrose/Water (D5w) 1,000 mls @ 0 mls/hr IV .Q0M PRN; As Directed PRN Reason: Hypoglycemia Insulin Human Regular (Humulin R) 0 units [place] .MODERATE SLIDING [place] PRN; Protocol PRN Reason: MODERATE SLIDING SCALE Last Admin: 08/15/17 11:50 Dose: 2 unit Ipratropium [place] (Atrovent Hfa) 1 puff INH Q6H PRN PRN Reason: SOB &/or Wheezing Loperamide HCl (Imodium) 2 mg PO PRN PRN PRN Reason: Diarrhea/Loose Stools Magnesium Hydroxide (Milk Of Magnesium) 30 ml PO DAILYPRN PRN PRN Reason: Constipation Metformin HCl (Glucophage Xr) 1,000 mg PO QAM-[facility] Last Admin: 08/16/17 09:09 Dose: 1,000 mg Metoprolol Succinate (Toprol Xl) 25 mg PO DAILY [facility] Last Admin: 08/16/17 09:16 Dose: Not Given Mineral Oil/White Petrolatum (Eucerin Cream) 0 gm TOP BIDPRN PRN PRN Reason: Dry Skin Nitroglycerin (Nitrostat) 0.4 mg SL Q5MIN PRN PRN Reason: Chest Pain Ondansetron HCl (Zofran) 4 mg IVP Q6H PRN PRN Reason: Nausea/Vomiting Ondansetron HCl (Zofran Odt) 4 mg PO Q6H PRN PRN Reason: Nausea/Vomiting Pantoprazole Sodium (Protonix) 40 mg PO DAILY [facility] Last Admin: 08/16/17 09:08 Dose: 40 mg Phenol (Chloraseptic [place] 180 Ml Bot) 0 ml PO PRN PRN PRN Reason: Sore Throat Pregabalin (Lyrica) 100 mg PO QAM [facility] Last Admin: 08/16/17 09:08 Dose: 100 mg Sodium Chloride (Flush - Normal Saline) 10 ml IVF PRN PRN PRN Reason: Saline Flush Last Admin: 08/15/17 21:15 Dose: 10 ml Sodium Chloride ([place] Nasal [place] 0.65%) 0 ml EA NARE QIDPRN PRN PRN Reason: Nasal Congestion
--- NOTE | 2017-08-16 12:16 | DIS ---
DATE OF ADMISSION: 08/01/2017 DATE OF DISCHARGE: 08/16/2017 PRIMARY CARE PHYSICIAN: Dr. Ordonez. DISCHARGE DISPOSITION: Home with home health. PRIMARY DISCHARGE DIAGNOSES: Non-ST elevation myocardial infarction, acute congestive heart failure with normal EF, acute respiratory failure with hypoxia, acute kidney failure, multivessel coronary ar sg disease, status post coronary artery bypass graft, left pleural effusion, moderate pulmonary reg urgitation and mitral regurgitation, lactic acidosis. SECONDARY DISCHARGE DIAGNOSES: Tobacco abuse disorder, psoriasis, peripheral arterial disease, obesi ty with BMI 31, hypertension, gout, gastroesophageal reflux disease, dyslipidemia, diabetes type 2. PRIMARY PROCEDURE AND OPERATION: Cardiac catheterization was performed by Dr. Stuart. CABG was pe rformed by Dr. Perez. RADIOLOGICAL INVESTIGATION: Chest x-ray, lower extremity ultrasound, echocardiography showed EF 55%- 60%. CT brain, CT angiography, [place] [place] [facility]. SIGNIFICANT LABORATORY DATA: Hemoglobin 9.6, WBC 14.2, platelet 322. INR 1.0, creatinine 1.37. Sod ium 138. Troponin 0.275. LDL 55. DISCHARGE MEDICATIONS: Allopurinol 200 mg p.o. at bedtime and 300 mg in the morning, aspirin 325 mg p.o. daily, Lipitor 40 mg p.o. at bedtime, lisinopril 5 mg p.o. daily, metformin ER 500 mg in the mikala rojelio and 1000 mg in morning, Toprol-XL 25 mg p.o. daily, omeprazole 40 mg p.o. daily, Actos 30 mg p.o . daily, Lyrica 100 mg in the morning and 200 mg at bedtime, Januvia 50 mg p.o. daily, Zanaflex 4 mg p.o. at bedtime p.r.n., tramadol 50 mg q.6 hourly p.r.n. CONTRAINDICATIONS: None. CODE STATUS: FULL CODE. INPATIENT CONSULTANTS: Dr. Reed was consulted while in hospital because patient stayed in CCU. Francoise Perez was consulted for CABG. Dr. Stuart was following for NSTEMI. TEST RESULTS PENDING ON DISCHARGE: None. ALLERGIES: No known drug allergy. DISCHARGE PLAN: Post hospital, the patient will follow up with Dr. Perez as instructed. The p atient will follow up with Dr. Ordonez on 08/17/2017. The patient will follow up with Dr. Hou as instructed. HOSPITAL COURSE: A 66-year-old female who was admitted by Dr. Mckeon on 08/02/2017. On admissi on, the patient was having NSTEMI. She was also having acute CHF. She was admitted to CCU. She was treated with nitro drip and IV Lasix. Next day, the patient was taken for cardiac catheterization. The patient was found with multivessel CAD. Echocardiography showed normal EF. The patient had CAB G by Dr. Perez and after that the patient remained in CCU and when the patient was stabilized a t that point, the patient was transferred to telemetry floor. During this admission, the patient was treated with Lasix with significant improvement in her left pl eural effusion, which was complicated after surgery. Repeat chest x-ray showed resolution of pleural effusion. The patient was planned for discharge yesterday, but she had code green for a stroke alert and that i s why we did CT brain and CT [place] [facility] [place], which was unremarkable. The patient did not have any major weakness or any stroke-like symptoms, which was resolved very quickly and that is why she did n ot require any intervention. The patient was observed neurologically in the next 24-hour and she did not have any further neurological problem. At this point, patient is medically stable for discharge. Above-mentioned medication adjustment done . Please see further for discharge summary dictated by Dr. Perez as well. The patient is seen and examined at bedside today. Please see my progress note from today for furthe r detail.
[2017-08-16] MEDS: HYDROcodone/Acetaminophen 5/325 mg Tablet PO PRN (12:20)
[2017-08-16 16:41] VITALS: BP 104/56; TEMP 97.9
== END 2017-08-16 16:50 | disposition home health service (06) | DRG 233 ==
LOC: ERS 14:49 → 2NO 17:17 → CCU 08-02 12:41 → 2NO 08-07 13:44 → IMCU/EMU 08-08 00:29 → 2NO 08-11 14:08
PROVIDERS: ADMIT Emergency Medicine; ATTEND Emergency Medicine
PROC: 4A023N7 Measurement of Cardiac Sampling and Pressure, Left Heart, Percutaneous Approach (ICD-10-PCS; 2017-08-02)
PROC: B215YZZ Fluoroscopy of Left Heart using Other Contrast (ICD-10-PCS; 2017-08-02)
PROC: B211YZZ Fluoroscopy of Multiple Coronary Arteries using Other Contrast (ICD-10-PCS; 2017-08-02)
PROC: 021109W Bypass Coronary Artery, Two Arteries from Aorta with Autologous Venous Tissue, Open Approach (ICD-10-PCS; principal; 2017-08-04)
PROC: 02100Z9 Bypass Coronary Artery, One Artery from Left Internal Mammary, Open Approach (ICD-10-PCS; 2017-08-04)
PROC: 06BQ0ZZ Excision of Left Saphenous Vein, Open Approach (ICD-10-PCS; 2017-08-04)
PROC: 06BP0ZZ Excision of Right Saphenous Vein, Open Approach (ICD-10-PCS; 2017-08-04)
PROC: 5A1221Z Performance of Cardiac Output, Continuous (ICD-10-PCS; 2017-08-04)
PROC: 5A09357 Assistance with Respiratory Ventilation, Less than 24 Consecutive Hours, Continuous Positive Airway Pressure (ICD-10-PCS; 2017-08-05)
DX: I21.4 Non-ST elevation (NSTEMI) myocardial infarction (principal); J95.821 Acute postprocedural respiratory failure; I50.21 Acute systolic (congestive) heart failure; E87.2 Acidosis; N17.9 Acute kidney failure, unspecified; J90 Pleural effusion, not elsewhere classified; I13.0 Hypertensive heart and chronic kidney disease with heart failure and stage 1 through stage 4 chronic kidney disease, or unspecified chronic kidney disease; E11.22 Type 2 diabetes mellitus with diabetic chronic kidney disease; N18.2 Chronic kidney disease, stage 2 (mild); I25.110 Atherosclerotic heart disease of native coronary artery with unstable angina pectoris; E11.51 Type 2 diabetes mellitus with diabetic peripheral angiopathy without gangrene; M51.16 Intervertebral disc disorders with radiculopathy, lumbar region; G47.33 Obstructive sleep apnea (adult) (pediatric); R80.9 Proteinuria, unspecified; I34.0 Nonrheumatic mitral (valve) insufficiency; I37.1 Nonrheumatic pulmonary valve insufficiency; L40.9 Psoriasis, unspecified; E11.40 Type 2 diabetes mellitus with diabetic neuropathy, unspecified; J44.9 Chronic obstructive pulmonary disease, unspecified; E78.5 Hyperlipidemia, unspecified; R29.707 NIHSS score 7; R47.81 Slurred speech; K21.9 Gastro-esophageal reflux disease without esophagitis; E66.9 Obesity, unspecified; G89.29 Other chronic pain; M10.9 Gout, unspecified; F17.210 Nicotine dependence, cigarettes, uncomplicated; Z68.31 Body mass index [BMI] 31.0-31.9, adult; Z98.42 Cataract extraction status, left eye; Z98.41 Cataract extraction status, right eye; Z90.710 Acquired absence of both cervix and uterus; Z79.899 Other long term (current) drug therapy; Z79.84 Long term (current) use of oral hypoglycemic drugs; Z83.3 Family history of diabetes mellitus; Z82.49 Family history of ischemic heart disease and other diseases of the circulatory system
CPT/HCPCS: 36415; 36416; 36430; 70450; 70496; 70498; 71045; 71046; 71260; 76942; 80048; 80053; 80061; 80306; 81001; 82550; 82553; 82805; 83036; 83605; 83690; 83735; 83880; 84484; 84703; 85025; 85379; 85610; 85730; 86850; 86900; 86901; 87040; 93005; 93010; 93306; 93458; 93798; 93923; 94002; 94003; 94640; 94660; 96365; 96367; 96372; 96375; 96376; 99152; A4216; C1769; G8978-GP-CL; G8978-GP-CM; G8979-GP-CI; G8979-GP-CM; G8980-GP-CM; G8987-GO-CK; G8988-GO-CI; J0131; J0456; J0690; J0696; J1644; J1650; J1815; J1885; J1940; J1956; J2001; J2150; J2250; J2270; J2370; J2440; J2704; J2720; J3010; J3475; J3480; J7050; J7611; J7620; P9016; P9045; S0028